=== PATIENT | female | born 1975 | race Caucasian/White ===

== ENCOUNTER 2018-04-16 09:57 | Emergency (ER) | payer MEDICARE ==
[~2018-04-16] VITALS: Ht 165.1 cm; Wt 72.6 kg
[2018-04-16] MEDS ORDERED: ONDANSETRON ODT 4 MG TAB.RAPDIS PO ONE (10:45)
[2018-04-16] MEDS ORDERED: IV NORMAL SALINE 1,000ML 1,000 ML IV ONE (10:45)
[2018-04-16 10:49] LABS: BASO # 0.1 x10^3/uL (0.0-0.2); BASO % 0 % (0-3); EOS % 0 % (0-3); HEMATOCRIT 47.3 % (36.0-47.0); HEMOGLOBIN 16.1 g/dL (12.0-15.5); LYMPH # 2.1 x10^3/uL (1.0-4.8); LYMPH % 12 % (24-48); MEAN CORPUSCULAR HEMOGLOBIN 31 pg (25-35); MEAN CORPUSCULAR HGB CONC 34 g/dL (31-37); MEAN CORPUSCULAR VOLUME 91 fL (79-100); MONO # 0.6 x10^3/uL (0.0-1.1); MONO % 3 % (0-9); NEUT % 85 % (31-73); PLATELET COUNT 487 x10^3/uL (140-400); RED BLOOD COUNT 5.22 x10^6/uL (3.50-5.40); RED CELL DISTRIBUTION WIDTH 14.7 % (11.5-14.5); WHITE BLOOD COUNT 17.8 x10^3/uL (4.0-11.0)
[2018-04-16 10:57] LABS: PREG TEST PT QUAL NEGATIVE (NEG)
[2018-04-16 11:01] LABS: CALCIUM 9.6 mg/dL (8.5-10.1); CREATININE 0.9 mg/dL (0.6-1.0); DIRECT BILIRUBIN 0.1 mg/dL (0.0-0.2); GFR 68.3; POTASSIUM 3.2 mmol/L (3.5-5.1); TOTAL BILIRUBIN 0.6 mg/dL (0.2-1.0); TOTAL PROTEIN 8.5 g/dL (6.4-8.2)
[2018-04-16 11:08] LABS: BILIRUBIN,URINE SMALL (NEG); CLARITY,URINE CLOUDY; COLOR,URINE YELLOW; GLUCOSE,URINE NEG (NEG); NITRITE,URINE NEG (NEG); UROBILINOGEN,URINE 0.2 mg/dL (0.2 mg/dL)
[2018-04-16 11:09] LABS: AMORPHOUS SEDIMENT,UR PRESENT /HPF; BACTERIA,URINE MANY /HPF (0-FEW); SQUAMOUS EPITHELIAL CELL,UR FEW /LPF
--- NOTE | 2018-04-16 11:19 | PHYS DOC ---
Past History Past Medical History: Bipolar, Schizophrenia Past Surgical History: Cholecystectomy, Tonsillectomy, Tubal ligation Alcohol Use: Rarely Drug Use: Heroin Adult General Chief Complaint Chief Complaint: NAUSEA/VOMITING HPI HPI This is a pleasant 42-year-old female presenting the emergency department today with nausea and vomiting for the past 2 days. Her vomitus is green in color. She denies fevers or chills. She has a history of a cholecystectomy in the past. Her pain is in the epigastrium which is mild to moderate. She describes it as a cramping that is nonradiating intermittent and associated with vomiting. She denies being . Review of systems is negative for chest pain shortness of breath fevers or chills. She denies polyuria dysuria or being . All other review of systems is negative unless otherwise noted in history of present illness. ED course: 42-year-old female presenting the emergency department today with epigastric abdominal pain along with nausea and vomiting. On arrival she is afebrile with a normal heart rate. On examination she is well-appearing, nontoxic and without any distress. Abdomen is soft and mildly tender in the epigastrium without tenderness in McBurney's point or Catherine sign. No rebound tenderness or guarding. Lungs are clear bilaterally. Cardiac auscultation reveals regular rate and rhythm. No murmur. The remainder the exam is unremarkable. IV established. IV nausea and pain medications of the posterior along with IV fluids. Blood work sent. CT abdomen pelvis ordered. Blood work shows mildly low potassium. Mild elevation in transaminase levels. Bilirubin within normal limits. Glucose mildly high. CBC shows leukocytosis which is nonspecific. Urinalysis shows mild ketones likely secondary to dehydration. Blood in the urine present. Likely secondary to currently being on her period. Many urine bacteria present could be contamination given negative leuk esterase and negative nitrites. We will cover for an urinary tract infection until urine culture returns. CT the abdomen pelvis shows a normal appendix without any obvious acute pathology. Recommendation made for outpatient vaginal ultrasound which was communicated to the patient. Oral Bactrim given for possible urinary tract infection pending culture. Otherwise ODT Zofran as needed for nausea.The patient has been examined and was not found to have an emergency medical condition. The patient was then discharged home in stable condition to follow up with their primary care physician over the next 2-3 days. They were to return if their symptoms worsened or if they were concerned for any reason. Face -to-face discharge instructions and return precautions were given. Patient's questions were answered to their satisfaction. Patient is comfortable with plan. Review of Systems Review of Systems SEE ABOVE. Current Medications Current Medications Current Medications Medications (Trade) Dose Ordered Sig/Cecilia Start Time Stop Time Status Last Admin Dose Admin Iohexol (Omnipaque 300 Mg/ml) 75 ml 1X ONCE 04/16/18 11:15 04/16/18 11:16 UNV Ondansetron HCl (Zofran Odt) 4 mg 1X ONCE 04/16/18 10:45 04/16/18 10:46 DC 04/16/18 10:35 4 MG Sodium Chloride 1,000 ml @ 1,000 mls/hr 1X ONCE 04/16/18 10:45 04/16/18 11:44 04/16/18 10:36 1,000 MLS/HR Allergies Allergies Allergies Coded Allergies Type Severity Reaction Last Updated Verified No Known Drug Allergies 04/16/18 No Physical Exam Physical Exam SEE ABOVE Constitutional: Well developed, well nourished, no acute distress, non-toxic appearance. HENT: Normocephalic, atraumatic, bilateral external ears normal, oropharynx moist, no oral exudates, nose normal. [] Eyes: PERRLA, EOMI, conjunctiva normal, no discharge. Neck: Normal range of motion, no tenderness, supple, no stridor. [] Cardiovascular:Heart rate regular rhythm, no murmur [] Lungs & Thorax: Bilateral breath sounds clear to auscultation [] Abdomen: Bowel sounds normal, soft, not distended, no masses, no pulsatile masses. Skin: Warm, dry, no erythema, no rash. [] Back: No tenderness, no CVA tenderness. [] Extremities: No tenderness, no cyanosis, no clubbing, ROM intact, no edema. Neurologic: Alert and oriented X 3, normal motor function, normal sensory function, no focal deficits noted. [] Psychologic: Affect normal, judgement normal, mood normal. [] Current Patient Data Vital Signs Vital Signs Date Time Temp Pulse Resp B/P (MAP) Pulse Ox O2 Delivery O2 Flow Rate FiO2 04/16/18 10:43 94 18 141/73 (95) 96 Room Air 04/16/18 10:05 97.5 Lab Results Laboratory Tests Test 04/16/18 10:24 04/16/18 10:27 Urine Collection Type Unknown Urine Color Yellow Urine Clarity Cloudy Urine pH 6.5 Urine Specific Carmi 1.025 Urine Protein 30 mg/dl (NEG-TRACE) Urine Glucose (UA) Neg mg/dL (NEG) Urine Ketones (Stick) 40 mg/dL (NEG) Urine Blood Large (NEG) Urine Nitrite Neg (NEG) Urine Bilirubin Small (NEG) Urine Urobilinogen Dipstick 0.2 mg/dL (0.2 mg/dL) Urine Leukocyte Esterase Neg (NEG) Urine RBC 3-5 /HPF (0-2) Urine WBC 1-4 /HPF (0-4) Urine Squamous Epithelial Cells Few /LPF Urine Amorphous Sediment Present /HPF Urine Bacteria Many /HPF (0-FEW) Urine Mucus Mod /LPF White Blood Count 17.8 x10^3/uL (4.0-11.0) H Red Blood Count 5.22 x10^6/uL (3.50-5.40) Hemoglobin 16.1 g/dL (12.0-15.5) H Hematocrit 47.3 % (36.0-47.0) H Mean Corpuscular Volume 91 fL (79-100) Mean Corpuscular Hemoglobin 31 pg (25-35) Mean Corpuscular Hemoglobin Concent 34 g/dL (31-37) Red Cell Distribution Width 14.7 % (11.5-14.5) H Platelet Count 487 x10^3/uL (140-400) H Neutrophils (%) (Auto) 85 % (31-73) H Lymphocytes (%) (Auto) 12 % (24-48) L Monocytes (%) (Auto) 3 % (0-9) Eosinophils (%) (Auto) 0 % (0-3) Basophils (%) (Auto) 0 % (0-3) Neutrophils # (Auto) 15.0 x10^3uL (1.8-7.7) H Lymphocytes # (Auto) 2.1 x10^3/uL (1.0-4.8) Monocytes # (Auto) 0.6 x10^3/uL (0.0-1.1) Eosinophils # (Auto) 0.0 x10^3/uL (0.0-0.7) Basophils # (Auto) 0.1 x10^3/uL (0.0-0.2) Platelet Estimate Pending Sodium Level 143 mmol/L (136-145) Potassium Level 3.2 mmol/L (3.5-5.1) L Chloride Level 106 mmol/L (98-107) Carbon Dioxide Level 25 mmol/L (21-32) Anion Gap 12 (6-14) Blood Urea Nitrogen 15 mg/dL (7-20) Creatinine 0.9 mg/dL (0.6-1.0) Estimated GFR (Cockcroft-Gault) 68.3 Glucose Level 130 mg/dL (70-99) H Calcium Level 9.6 mg/dL (8.5-10.1) Total Bilirubin 0.6 mg/dL (0.2-1.0) Direct Bilirubin 0.1 mg/dL (0.0-0.2) Aspartate Amino Transferase (AST) 49 U/L (15-37) H Alanine Aminotransferase (ALT) 141 U/L (14-59) H Alkaline Phosphatase 110 U/L (46-116) Total Protein 8.5 g/dL (6.4-8.2) H Albumin 4.0 g/dL (3.4-5.0) Lipase 173 U/L (73-393) Serum Test, Qualitative Negative (NEG) EKG EKG [] Radiology/Procedures Radiology/Procedures [] Course & Med Decision Making Course & Med Decision Making Pertinent Labs and Imaging studies reviewed. (See chart for details) [] Dragon Disclaimer Dragon Disclaimer This electronic medical record was generated, in whole or in part, using a voice recognition dictation system. Departure Departure: Impression: Primary Impression: Epigastric abdominal pain Additional Impressions: Nausea and vomiting Hypokalemia Leukocytosis Disposition: HOME, SELF-CARE Condition: STABLE Referrals: DAVID TANNER MD (PCP) Patient Instructions: Nausea and Vomiting, Potassium (K) Additional Instructions: Thank you for allowing us to participate in your care today. Followup with your primary care physician in 3 days if your symptoms do not improve. Call your Primary Doctor tomorrow and inform them of your visit today. If you do not have a primary care provider you can ask for a list of our primary care providers. Return to the emergency department you have any new or concerning findings. You will need an ultrasound in clinic for a: "Hyperenhancing mass in the uterine fundus, probable fibroid. Hypodense area in the mid uterus, incompletely characterized." that was seen on CT today. get this within 7-10 days and follow up with you primary doctor with the results. This should be evaluated by the primary care physician and any necessary consulting services for continued management within a few days after discharge. Return to emergency room if you have any new or concerning symptoms including but not limited to fever, chills, nausea, vomiting, intractable pain, any new rashes, chest pain, shortness of air, uncontrolled bleeding, difficulty breathing, and/or vision loss. If at any time, you are having difficulty getting into your primary care doctor or a specialist, return to the emergency department. Scripts Sulfamethoxazole/Trimethoprim (BACTRIM DS TABLET) 1 Each Tablet 1 TAB PO BID, #14 TAB Prov: ILEANA GILMORE MD 04/16/18 Ondansetron Hcl (ZOFRAN) 4 Mg Tablet 1 TAB PO PRN Q6HRS PRN for NAUSEA, #6 TAB Prov: ILEANA GILMORE MD 04/16/18 Problem Qualifiers ILEANA GILMORE MD April 16, 2018 11:19
[2018-04-16] MEDS ORDERED: IOHEXOL 300 MG/ML 75 ML VIAL. IV ONE (11:30)
[2018-04-16] MEDS ORDERED: CONTRAST GIVEN MC PRN (11:30)
[2018-04-16 11:40] LABS: % ATYL 3 % (0-0); % BANDS 1 % (0-9); % BASOS 0 % (0-3); % EOS 0 % (0-5); % LYMPHS 15 % (24-48); % MONOS 1 % (0-10); % SEGS 80 % (35-66); PLATELET CLUMP PRESENT; PLT ESTIMATE INCREASED (ADEQUATE); TOXIC VACUOLATION SLIGHT
--- NOTE | 2018-04-16 11:53 | RAD ---
PQRS Compliance Statement: One or more of the following individualized dose reduction techniques were utilized for this examination: 1. Automated exposure control 2. Adjustment of the mA and/or kV according to patient size 3. Use of iterative reconstruction technique CT ABD PELV W/ IV CONTRST ONLY Clinical Indication: RLQ PAIN, nausea and vomiting, cramping x2 days. Comparison: None. Technique: Helical CT imaging of the abdomen and pelvis is performed after 75 cc Omnipaque 300 IV contrast. Oral contrast not given. Findings: Calcified granuloma posterior left lower lobe. Cardiac size normal. Tiny hiatal hernia. Cholecystectomy. Mild focal fatty infiltration along the falciform ligament. Numerous calcified granulomas in the spleen. There is a 8mm hypodensity in the upper spleen, incompletely characterized. In a patient with no significant past medical history, the hypodensity is probably a cyst or hemangioma. Pancreas, adrenal glands, and abdominal aorta are normal. Kidneys enhance symmetrically, no hydronephrosis. No obvious abnormality of the stomach, stomach is not well distended, limiting evaluation. There is no dilated small bowel. Moderate colon stool volume. No evidence of colitis. The appendix is normal. Retroverted uterus. There is a 2.2 cm hyperenhancing mass in the uterus at the fundus. Mild mass effect on the endometrial stripe. There is an ill-defined hypodense area in the anterior myometrium that is near the endometrium but does not appear continuous. Uterus not well evaluated by CT. There is air in the vagina. Urinary bladder is normal. Negligible pelvic free fluid, probably physiologic. Bones unremarkable. IMPRESSION: 1. No acute abdominal or pelvic abnormality. The appendix is normal. 2. Hyperenhancing mass in the uterine fundus, probable fibroid. Hypodense area in the mid uterus, incompletely characterized. Consider outpatient pelvic ultrasound. Electronically signed by: Brady Granados MD (04/16/2018 11:50 AM) [id number]
[2018-04-16] MEDS ORDERED: SULF1TAB24 PO (12:15)
[2018-04-16] MEDS ORDERED: ONDA4TAB7 PO (12:15)
[2018-04-16] MEDS ORDERED: POTA10TA10 PO (12:21)
[2018-04-16] MEDS ORDERED: cefTRIAXone SODIUM 1 GM VIAL IV ONE (12:27)
[2018-04-16] MEDS ORDERED: IV NORMAL SALINE 50ML 50 ML ONE (12:27)
[2018-04-16 12:46] VITALS: BP 117/85
== END 2018-04-16 13:03 | disposition home or self-care (01) ==
LOC: ER 09:57
DX: E87.6 Hypokalemia (principal); R10.13 Epigastric pain; D72.829 Elevated white blood cell count, unspecified; Z90.49 Acquired absence of other specified parts of digestive tract; F20.9 Schizophrenia, unspecified; F31.9 Bipolar disorder, unspecified; F19.10 Other psychoactive substance abuse, uncomplicated
CPT/HCPCS: 36415; 74177; 80048; 80076; 81001; 83690; 84703; 85007; 85025; 87086; 87186; 96361; 96365; 99285; J0696; Q0162; Q9967; J7030

== ENCOUNTER 2018-05-02 21:08 | Inpatient (IN) | payer MEDICARE ==
[~2018-05-02] VITALS: Ht 165.1 cm; Wt 63.4 kg
[~2018-05-02 21:08] MED LIST: ONDA4TAB7 PO; POTA10TA10 PO; SULF1TAB24 PO
--- NOTE | 2018-05-02 21:16 | ED.ADGEN ---
Past History Past Medical History: Bipolar, Schizophrenia Past Surgical History: Cholecystectomy, Tonsillectomy, Tubal ligation Alcohol Use: Rarely Drug Use: Heroin Adult General Chief Complaint Chief Complaint "... I just wanted ......to sleep..... for a couple days.." and maybe never wake up...." HPI HPI Patient is a 42 year old female who presents with OD of Quetiapine. Pt reportedly took 20 Quetiapine 300 and 4 - 50 mg Quetiapine at 2030 hrs. Pt. has injected approximately a quarter gram of methamphetamine the last couple days. Pt. denies other drug usage. Denies immunosuppressing. No history of travel or specific ill contacts. No history of trauma. Husban states she has become psychotic from her drug use. Pt. Has hx. Anxiety, Bipolar, Depression and Polysubstance abuse. Pt. Rx bottles for Quetiapine ordered by Aliza Ledesma. Pt. also follows with Dr. Andrews. Review of Systems Review of Systems Pt. somewhat poor historian. Constitutional: Denies fever or chills [] Eyes: Denies change in visual acuity, redness, or eye pain [] HENT: Denies nasal congestion or sore throat [] Respiratory: Denies cough or shortness of breath [] Cardiovascular: No additional information not addressed in HPI [] GI: Denies abdominal pain, nausea, vomiting, bloody stools or diarrhea [] : Denies dysuria or hematuria [] Musculoskeletal: Denies back pain or joint pain [] Integument: Denies rash or skin lesions [] Neurologic: Denies headache, focal weakness or sensory changes [] Endocrine: Denies polyuria or polydipsia [] All other systems were reviewed and found to be within normal limits, except as documented in this note. Family History Family History Not currently available Current Medications Current Medications See nursing for home medications Allergies Allergies Allergies Coded Allergies Type Severity Reaction Last Updated Verified No Known Drug Allergies 04/16/18 No Physical Exam Physical Exam Constitutional: , no acute distress, very sedated in appearance. [] HENT: Normocephalic, atraumatic, bilateral external ears normal, oropharynx moist, no oral exudates, nose normal. []Good gag. Eyes: PERRLA, EOMI, conjunctiva normal, no discharge. [] Neck: Normal range of motion, no tenderness, supple, no stridor. [] Cardiovascular:Heart rate regular rhythm, no murmur [] Lungs & Thorax: Bilateral breath sounds equal at apex with scattered wheezes on auscultation [] Abdomen: Bowel sounds normal, soft, no tenderness, no masses, no pulsatile masses. [] Old surgery scars Skin: Warm, dry, no erythema, no rash. [] Back: No tenderness, no CVA tenderness. [] Extremities: No tenderness, no cyanosis, no clubbing, ROM intact, no edema. [] Neurologic: Alert and oriented X 3, no gross motor function or sensory function deficits, no focal deficits noted. Moves all extremities on command. GSC= 13 Psychologic: Affect depressed , mood depressed. [] Current Patient Data Lab Results Laboratory Tests Test 05/02/18 21:20 White Blood Count 9.1 x10^3/uL (4.0-11.0) Red Blood Count 5.09 x10^6/uL (3.50-5.40) Hemoglobin 15.7 g/dL (12.0-15.5) H Hematocrit 46.3 % (36.0-47.0) Mean Corpuscular Volume 91 fL (79-100) Mean Corpuscular Hemoglobin 31 pg (25-35) Mean Corpuscular Hemoglobin Concent 34 g/dL (31-37) Red Cell Distribution Width 14.6 % (11.5-14.5) H Platelet Count 383 x10^3/uL (140-400) Neutrophils (%) (Auto) 61 % (31-73) Lymphocytes (%) (Auto) 27 % (24-48) Monocytes (%) (Auto) 8 % (0-9) Eosinophils (%) (Auto) 3 % (0-3) Basophils (%) (Auto) 1 % (0-3) Neutrophils # (Auto) 5.5 x10^3uL (1.8-7.7) Lymphocytes # (Auto) 2.5 x10^3/uL (1.0-4.8) Monocytes # (Auto) 0.7 x10^3/uL (0.0-1.1) Eosinophils # (Auto) 0.2 x10^3/uL (0.0-0.7) Basophils # (Auto) 0.1 x10^3/uL (0.0-0.2) Prothrombin Time 10.5 SEC (9.4-11.4) Prothrombin Time INR 1.0 (0.9-1.1) PTT 28 SEC (23-33) Maternal Serum HCG Beta Subunit 1 mIU/mL (0-6) Sodium Level 143 mmol/L (136-145) Potassium Level 3.3 mmol/L (3.5-5.1) L Chloride Level 108 mmol/L (98-107) H Carbon Dioxide Level 20 mmol/L (21-32) L Anion Gap 15 (6-14) H Blood Urea Nitrogen 10 mg/dL (7-20) Creatinine 1.0 mg/dL (0.6-1.0) Estimated GFR (Cockcroft-Gault) 60.5 Glucose Level 113 mg/dL (70-99) H Calcium Level 9.1 mg/dL (8.5-10.1) Magnesium Level 2.2 mg/dL (1.8-2.4) Total Bilirubin 0.7 mg/dL (0.2-1.0) Direct Bilirubin 0.2 mg/dL (0.0-0.2) Aspartate Amino Transferase (AST) 54 U/L (15-37) H Alanine Aminotransferase (ALT) 109 U/L (14-59) H Alkaline Phosphatase 100 U/L (46-116) Total Protein 7.2 g/dL (6.4-8.2) Albumin 3.5 g/dL (3.4-5.0) Salicylates Level 2.7 mg/dL (2.8-20.0) L Salicylate Last Dose Date Unk Salicylate Last Dose Time Unk Acetaminophen Level < 2.0 mcg/mL (10-30) L Acetaminophen Last Dose Date Unk Acetaminophen Last Dose Time Unk Ethyl Alcohol Level < 10 mg/dL (0-10) EKG EKG My interpretation of EKG shows a sinus tachycardia 127 bpm. Left axis and nonspecific anterior septal changes. No findings acute STEMI of contralateral changes. QTC is at 491 ms. My interpretation of repeat EKG shows a sinus tachycardia 109 bpm. There is still an anterior lateral strain pattern. But now the QTc interval was 505 ms- magnesium was ordered for patient[] Radiology/Procedures Radiology/Procedures My interpretation of chest x-ray shows no acute cardiopulmonary findings.[] Course & Med Decision Making Course & Med Decision Making Pertinent Labs and Imaging studies reviewed. (See chart for details) Discussed presentation, testing and tx plan with Dr. Andrews at 2300 hrs. Will admit for further evaluation and treatment. We'll need a psychiatric valuation once mentation improved. Critical care time 90 minutes [] Final Impression Final Impression 1. Over Dosage of Quetiapine 2. Polysubstance Abuse 3. Hx. Bipolar 4. Suicidal ideation 5. Hypokalemia 6. Elevated AST/ ALT 7. Dehydration Dragon Disclaimer Dragon Disclaimer This electronic medical record was generated, in whole or in part, using a voice recognition dictation system. PRISCILLA NAZARIO MD May 02, 2018 21:16
[2018-05-02] MEDS ORDERED: THIAMINE 200 MG/2 ML VIAL. IV ONE (21:27)
[2018-05-02] MEDS ORDERED: FOLIC ACID 5 MG/ML SYRINGE for ER IV ONE ×2 (21:28)
[2018-05-02] MEDS ORDERED: MVI, ADULT NO.4 WITH VIT K 10 ML, FOLIC ACID 1 MG, THIAMINE 100 MG in IV DEXTROSE 5%-LA... IV ONE ×4 (21:30)
[2018-05-02 21:35] LABS: BASO # 0.1 x10^3/uL (0.0-0.2); BASO % 1 % (0-3); EOS # 0.2 x10^3/uL (0.0-0.7); EOS % 3 % (0-3); HEMATOCRIT 46.3 % (36.0-47.0); HEMOGLOBIN 15.7 g/dL (12.0-15.5); LYMPH # 2.5 x10^3/uL (1.0-4.8); LYMPH % 27 % (24-48); MEAN CORPUSCULAR HEMOGLOBIN 31 pg (25-35); MEAN CORPUSCULAR HGB CONC 34 g/dL (31-37); MEAN CORPUSCULAR VOLUME 91 fL (79-100); MONO # 0.7 x10^3/uL (0.0-1.1); MONO % 8 % (0-9); NEUT # 5.5 x10^3uL (1.8-7.7); NEUT % 61 % (31-73); PLATELET COUNT 383 x10^3/uL (140-400); RED BLOOD COUNT 5.09 x10^6/uL (3.50-5.40); RED CELL DISTRIBUTION WIDTH 14.6 % (11.5-14.5); WHITE BLOOD COUNT 9.1 x10^3/uL (4.0-11.0)
[2018-05-02 21:48] LABS: ETHANOL < 10 mg/dL (0-10); SALIC 2.7 mg/dL (2.8-20.0)
[2018-05-02 21:49] LABS: ACETAMIN < 2.0 mcg/mL (10-30)
[2018-05-02 21:50] LABS: ALBUMIN 3.5 g/dL (3.4-5.0); CALCIUM 9.1 mg/dL (8.5-10.1); DIRECT BILIRUBIN 0.2 mg/dL (0.0-0.2); GFR 60.5; MAGNESIUM 2.2 mg/dL (1.8-2.4); POTASSIUM 3.3 mmol/L (3.5-5.1); TOTAL BILIRUBIN 0.7 mg/dL (0.2-1.0); TOTAL PROTEIN 7.2 g/dL (6.4-8.2)
[2018-05-02 21:59] LABS: AMPHETAMINE/METHAMPHETAMINE POS (NEG); BARBITURATES NEG (NEG); BENZODIAZEPINES NEG (NEG); CANNABINOIDS NEG (NEG); COCAINE NEG (NEG); METHADONE NEG (NEG); OPIATES POS (NEG); PHENCYCLIDINE NEG (NEG)
[2018-05-02 22:01] LABS: BACTERIA,URINE 0 /HPF (0-FEW); BILIRUBIN,URINE NEG (NEG); CLARITY,URINE CLEAR; COLOR,URINE YELLOW; GLUCOSE,URINE NEG (NEG); NITRITE,URINE NEG (NEG); RBC,URINE RARE /HPF (0-2); SQUAMOUS EPITHELIAL CELL,UR FEW /LPF; UROBILINOGEN,URINE 1 mg/dL (0.2 mg/dL); WBC,URINE 0 /HPF (0-4)
[2018-05-02 22:24] LABS: BGAS PH 7.45 (7.35-7.45)
--- NOTE | 2018-05-02 22:38 | RAD ---
EXAM: CHEST 1 VIEW. HISTORY: Overdose. COMPARISON: None. FINDINGS: A frontal view of the chest is obtained. There are no confluent infiltrates. There is no pneumothorax or pleural effusion. The heart is not enlarged. Cholecystectomy clips are noted. IMPRESSION: 1. No confluent infiltrates. Electronically signed by: Lincoln Brown MD (05/02/2018 10:34 PM) [facility]
[2018-05-02] MEDS: IV RINGERS SOLUTION,LACTATED 1,000 ML IV SCH (23:30)
[2018-05-02] MEDS ORDERED: IV RINGERS SOLUTION,LACTATED 1,000 ML IV STA (23:39)
[2018-05-02 23:45] LABS: LI 0.6 mmol/L (0.6-1.2)
[2018-05-03] VITALS (19 sets, daily range): BP systolic 81–159; BP diastolic 56–99
--- NOTE | 2018-05-03 01:08 | EKG ---
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
--- NOTE | 2018-05-03 01:11 | EKG ---
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
[2018-05-03] MEDS ORDERED: MAGNESIUM SULFATE 2GM 50 ML IV ONE (01:15)
[2018-05-03] MEDS: IV RINGERS SOLUTION,LACTATED 1,000 ML IV SCH ×4 (03:17→19:30)
--- NOTE | 2018-05-03 05:52 | EKG ---
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
[2018-05-03 06:19] LABS: CALCIUM 9.2 mg/dL (8.5-10.1); CREATININE 0.9 mg/dL (0.6-1.0); GFR 68.3; POTASSIUM 3.8 mmol/L (3.5-5.1)
[2018-05-03 06:20] LABS: BASO % 0 % (0-3); EOS # 0.3 x10^3/uL (0.0-0.7); EOS % 5 % (0-3); HEMATOCRIT 40.8 % (36.0-47.0); HEMOGLOBIN 13.6 g/dL (12.0-15.5); LYMPH # 2.4 x10^3/uL (1.0-4.8); LYMPH % 33 % (24-48); MEAN CORPUSCULAR HEMOGLOBIN 31 pg (25-35); MEAN CORPUSCULAR HGB CONC 33 g/dL (31-37); MEAN CORPUSCULAR VOLUME 91 fL (79-100); MONO % 15 % (0-9); NEUT # 3.3 x10^3uL (1.8-7.7); NEUT % 47 % (31-73); PLATELET COUNT 351 x10^3/uL (140-400); RED BLOOD COUNT 4.47 x10^6/uL (3.50-5.40); RED CELL DISTRIBUTION WIDTH 14.6 % (11.5-14.5); WHITE BLOOD COUNT 7.1 x10^3/uL (4.0-11.0)
[2018-05-03] MEDS ORDERED: MVI, ADULT NO.4 WITH VIT K 10 ML, FOLIC ACID SYRINGE for ER 1 MG, THIAMINE 100 MG in IV... IV SCH ×4 (09:00)
[2018-05-03] MEDS: MVI, ADULT NO.4 WITH VIT K 10 ML, FOLIC ACID 1 MG, THIAMINE 100 MG in IV DEXTROSE 5%-LA... IV SCH ×4 (09:00)
[2018-05-03] MEDS ORDERED: HALOPERIDOL LACT 5 MG/ML VIAL. IVP PRN (15:15)
[2018-05-03] MEDS ORDERED: HALOPERIDOL LACT 5 MG/ML VIAL. IM PRN (15:17)
[2018-05-03] MEDS: LORazepam 2 MG/ML VIAL IV PRN ×4 (16:15→20:25)
--- NOTE | 2018-05-03 19:15 | HP ---
ADMIT DATE: 05/02/2018 HISTORY OF PRESENT ILLNESS: A 42-year-old female came in through the Emergency Room with an overdose of approximately 15,000 mg of Seroquel. The patient was quite tired and fatigued, has apparently also injected approximately a 1/4 gram of methamphetamine. Last couple of days, denies other drug usage ____. The patient otherwise is markedly lethargic. Her states the patient has become psychotic from drug use. PAST MEDICAL HISTORY: Bipolar and schizophrenia, polysubstance abuse. The patient was admitted for further observation and further evaluation. REVIEW OF SYSTEMS: Unable to really give much of a history. FAMILY HISTORY: Unremarkable. MEDICATIONS: Her normal home medications include Bactrim DS, potassium chloride, and Zofran p.r.n. ALLERGIES: She has no known drug allergies. SOCIAL HISTORY: The patient smokes. Does drink alcohol. Denies tobacco use. REVIEW OF SYSTEMS: As described above. PHYSICAL EXAMINATION: GENERAL: This is very lethargic, sedate white female. VITAL SIGNS: Blood pressure initially 81/57, respiratory rate 17, pulse 80, afebrile. HEENT: The patient's head was atraumatic, normocephalic. Eyes: PERRL. The patient's pupils are somewhat dilated, but reactive to light. LUNGS: The patient otherwise, lungs are diminished, but clear. CARDIOVASCULAR: Regular sinus rhythm. ABDOMEN: Soft, nontender, no rebound or guarding. Positive bowel sounds. EXTREMITIES: No clubbing, cyanosis or edema. NEUROLOGIC: The patient is very lethargic. Reflex is diminished throughout. LABORATORY DATA: Hemoglobin of 13 and 40, otherwise differential not significant. Chemistries: Sodium 147, BUN and creatinine of 10 and 1. Blood sugar 113, elevation of liver enzymes. Drug screen is positive for methamphetamines, opiates, and perhaps some lithium. PLAN: In any case, the patient will be admitted for polysubstance abuse, drug overdose with Seroquel. The patient placed in the ICU 1:1 and make further evaluation on her as indicated also consult with Dr. Luis M cooper psychiatrist for his input in the situation. DAVID TANNER MD DR: HAROON/agatha JOB#: [id number] / [id number]
--- NOTE | 2018-05-03 21:05 | PDOC ---
Exam Note: Hernán Note: Please also refer to the separate dictated note~for this date of service dictated separately.~Patient seen individually. Discussed the patient with Nursing staff reviewed the chart.~Reviewed interim history and current functioning. Reviewed vital signs,~Labs/ Radiology~and current medications noted below. Continue current treatment with the changes noted in the dictated addendum note Assessment: Vital Signs: Vital Signs Date Time Temp Pulse Resp B/P (MAP) Pulse Ox O2 Delivery O2 Flow Rate FiO2 05/03/18 20:03 92 24 114/91 (99) Room Air 05/03/18 15:00 96.9 05/03/18 04:58 97 05/03/18 02:54 2.0 I&O Intake and Output 05/03/18 07:00 Intake Total 1176 ml Output Total 0 ml Balance 1176 ml Intake Oral 0 ml IV Total 1176 ml Output Urine Total 0 ml Labs: Laboratory Tests Test 05/02/18 21:20 05/02/18 21:26 05/02/18 21:31 05/02/18 22:10 White Blood Count 9.1 x10^3/uL (4.0-11.0) Red Blood Count 5.09 x10^6/uL (3.50-5.40) Hemoglobin 15.7 g/dL (12.0-15.5) H Hematocrit 46.3 % (36.0-47.0) Mean Corpuscular Volume 91 fL (79-100) Mean Corpuscular Hemoglobin 31 pg (25-35) Mean Corpuscular Hemoglobin Concent 34 g/dL (31-37) Red Cell Distribution Width 14.6 % (11.5-14.5) H Platelet Count 383 x10^3/uL (140-400) Neutrophils (%) (Auto) 61 % (31-73) Lymphocytes (%) (Auto) 27 % (24-48) Monocytes (%) (Auto) 8 % (0-9) Eosinophils (%) (Auto) 3 % (0-3) Basophils (%) (Auto) 1 % (0-3) Neutrophils # (Auto) 5.5 x10^3uL (1.8-7.7) Lymphocytes # (Auto) 2.5 x10^3/uL (1.0-4.8) Monocytes # (Auto) 0.7 x10^3/uL (0.0-1.1) Eosinophils # (Auto) 0.2 x10^3/uL (0.0-0.7) Basophils # (Auto) 0.1 x10^3/uL (0.0-0.2) Prothrombin Time 10.5 SEC (9.4-11.4) Prothrombin Time INR 1.0 (0.9-1.1) PTT 28 SEC (23-33) Maternal Serum HCG Beta Subunit 1 mIU/mL (0-6) Sodium Level 143 mmol/L (136-145) Potassium Level 3.3 mmol/L (3.5-5.1) L Chloride Level 108 mmol/L (98-107) H Carbon Dioxide Level 20 mmol/L (21-32) L Anion Gap 15 (6-14) H Blood Urea Nitrogen 10 mg/dL (7-20) Creatinine 1.0 mg/dL (0.6-1.0) Estimated GFR (Cockcroft-Gault) 60.5 Glucose Level 113 mg/dL (70-99) H Calcium Level 9.1 mg/dL (8.5-10.1) Magnesium Level 2.2 mg/dL (1.8-2.4) Total Bilirubin 0.7 mg/dL (0.2-1.0) Direct Bilirubin 0.2 mg/dL (0.0-0.2) Aspartate Amino Transferase (AST) 54 U/L (15-37) H Alanine Aminotransferase (ALT) 109 U/L (14-59) H Alkaline Phosphatase 100 U/L (46-116) Total Protein 7.2 g/dL (6.4-8.2) Albumin 3.5 g/dL (3.4-5.0) Salicylates Level 2.7 mg/dL (2.8-20.0) L Salicylate Last Dose Date Unk Salicylate Last Dose Time Unk Acetaminophen Level < 2.0 mcg/mL (10-30) L Acetaminophen Last Dose Date Unk Acetaminophen Last Dose Time Unk Ethyl Alcohol Level < 10 mg/dL (0-10) [place] Level 0.6 mmol/L (0.6-1.2) [place] Last Dose Date [place] Last Dose Time Urine Collection Type U cath Urine Color Yellow Urine Clarity Clear Urine pH 7.5 Urine Specific [place] 1.010 Urine Protein Neg (NEG-TRACE) Urine Glucose (UA) Neg mg/dL (NEG) Urine Ketones (Stick) Neg mg/dL (NEG) Urine Blood Trace (NEG) Urine Nitrite Neg (NEG) Urine Bilirubin Neg (NEG) Urine Urobilinogen Dipstick 1 mg/dL (0.2 mg/dL) Urine Leukocyte Esterase Neg (NEG) Urine RBC Rare /HPF (0-2) Urine WBC 0 /HPF (0-4) Urine Squamous Epithelial Cells Few /LPF Urine Bacteria 0 /HPF (0-FEW) Urine Opiates Screen Pos (NEG) Urine Methadone Screen Neg (NEG) Urine Barbiturates Neg (NEG) Urine Phencyclidine Screen Neg (NEG) Urine Amphetamine/Methamphetamine Pos (NEG) Urine Benzodiazepines Screen Neg (NEG) Urine Cocaine Screen Neg (NEG) Urine Cannabinoids Screen Neg (NEG) Urine Ethyl Alcohol Neg (NEG) Blood pH 7.45 (7.35-7.45) Blood Gas PCO2 34 mmHg (35-45) L Blood Gas PO2 84 mmHg (80-100) Blood Gas HCO3 24 mmol/L (22-26) Arterial Bld O2 Saturation (Calc) 97 % (92-99) FiO2 21 % Test 05/03/18 01:38 05/03/18 05:45 Nasal Screen MRSA (PCR) Negative (Negative) White Blood Count 7.1 x10^3/uL (4.0-11.0) Red Blood Count 4.47 x10^6/uL (3.50-5.40) Hemoglobin 13.6 g/dL (12.0-15.5) Hematocrit 40.8 % (36.0-47.0) Mean Corpuscular Volume 91 fL (79-100) Mean Corpuscular Hemoglobin 31 pg (25-35) Mean Corpuscular Hemoglobin Concent 33 g/dL (31-37) Red Cell Distribution Width 14.6 % (11.5-14.5) H Platelet Count 351 x10^3/uL (140-400) Neutrophils (%) (Auto) 47 % (31-73) Lymphocytes (%) (Auto) 33 % (24-48) Monocytes (%) (Auto) 15 % (0-9) H Eosinophils (%) (Auto) 5 % (0-3) H Basophils (%) (Auto) 0 % (0-3) Neutrophils # (Auto) 3.3 x10^3uL (1.8-7.7) Lymphocytes # (Auto) 2.4 x10^3/uL (1.0-4.8) Monocytes # (Auto) 1.0 x10^3/uL (0.0-1.1) Eosinophils # (Auto) 0.3 x10^3/uL (0.0-0.7) Basophils # (Auto) 0.0 x10^3/uL (0.0-0.2) Sodium Level 147 mmol/L (136-145) H Potassium Level 3.8 mmol/L (3.5-5.1) Chloride Level 110 mmol/L (98-107) H Carbon Dioxide Level 28 mmol/L (21-32) Anion Gap 9 (6-14) Blood Urea Nitrogen 11 mg/dL (7-20) Creatinine 0.9 mg/dL (0.6-1.0) Estimated GFR (Cockcroft-Gault) 68.3 Glucose Level 89 mg/dL (70-99) Calcium Level 9.2 mg/dL (8.5-10.1) Current Medications: Meds: Current Medications Multivitamins/ Minerals 10 ml/ Folic Acid 1 mg/ Thiamine HCl 100 mg/Dextrose/ Lactated Ringer's 1,011.2 ml @ 0 mls/hr 1X ONCE IV Last administered on at 21:30; Start 05/02/18 at 21:30; Stop 05/02/18 at 21:35; Status DC Thiamine HCl 200 mg STK-MED ONCE IV ; Start 05/02/18 at 21:27; Stop 05/02/18 at 21 :28; Status DC Folic Acid (FOLIC ACID SYRINGE for ER) 5 mg STK-MED ONCE IV ; Start 05/02/18 at 21:28; Stop 05/02/18 at 21:29; Status DC Folic Acid (FOLIC ACID SYRINGE for ER) 5 mg STK-MED ONCE IV ; Start 05/02/18 at 21:28; Stop 05/02/18 at 21:29; Status DC Multivitamins/ Minerals 10 ml/ Folic Acid 1 mg/ Thiamine HCl 100 mg/Lactated Ringer's 1,011.1 ml @ 1,000 mls/ hr DAILY IV ; Start 05/03/18 at 09:00; Status UNV Lactated Ringer's 1,000 ml @ 200 mls/hr Q5H IV Last administered on 05/03/18at 03:17; Start 05/02/18 at 23:30 Lactated Ringer's 1,000 ml @ 1,000 mls/hr 1X STAT IV Last administered on 05/02at 00:15; Start 05/02/18 at 23:39; Stop 05/03/18 at 00:38; Status DC Multivitamins/ Minerals 10 ml/ Folic Acid 1 mg/ Thiamine HCl 100 mg/Dextrose/ Lactated Ringer's 1,011.2 ml @ 1,000 mls/ hr DAILY IV Last administered on 05/03at 09:00; Start 05/03/18 at 09:00 Magnesium Sulfate 50 ml @ 25 mls/hr 1X ONCE IV Last administered on 05/03/18at 02:08; Start 05/03/18 at 01:15; Stop 05/03/18 at 03:14; Status DC Haloperidol Lactate (Haldol) 2 mg PRN Q6HRS PRN IVP AGITATION; Start 05/03/18 at 15:15; Stop 05/03/18 at 15:17; Status DC Haloperidol Lactate (Haldol) 2 mg PRN Q6HRS PRN IM AGITATION; Start 05/03/18 at 15:17; Stop 05/03/18 at 15:40; Status DC Lorazepam (Ativan) 0.5 mg PRN Q1HR PRN IV ANXIETY / AGITATION Last administered on 05/03/18at 20:25; Start 05/03/18 at 15:45 Active Scripts Active Potassium Chloride 10 Meq Tablet.er 10 Meq PO DAILY 5 Days Bactrim Ds Tablet (Sulfamethoxazole/Trimethoprim) 1 Each Tablet 1 Tab PO BID Zofran (Ondansetron Hcl) 4 Mg Tablet 1 Tab PO PRN Q6HRS PRN I have reviewed the current psychotropics carefully including drug interactions. Risk benefit ratio favors no change other than as noted in my dictated progress note. Diagnosis: Problems: (1) Anxiety disorder (2) Bipolar affective, mixed, sev w/ psych (3) Impulse control disorder (4) Psychosis, atypical (5) Methamphetamine abuse (6) Mental confusion (7) Overdose HAIDER RODRIGUEZ MD May 03, 2018 21:05
[2018-05-04] VITALS (11 sets, daily range): BP systolic 113–175; BP diastolic 66–100
[2018-05-04] MEDS: IV RINGERS SOLUTION,LACTATED 1,000 ML IV SCH ×5 (00:30→20:30)
[2018-05-04] MEDS: LORazepam 2 MG/ML VIAL IV PRN ×3 (02:53→19:40)
[2018-05-04] MEDS: MVI, ADULT NO.4 WITH VIT K 10 ML, FOLIC ACID 1 MG, THIAMINE 100 MG in IV DEXTROSE 5%-LA... IV SCH ×4 (08:33)
--- NOTE | 2018-05-04 10:56 | RAD ---
CT of the head without contrast, 05/04/2018: HISTORY: Fall, vomiting, abdominal pain, headache and dizziness The ventricles are within normal limits in size. There is no shift of the midline structures. There is no evidence of acute intracranial hemorrhage or mass effect. A tiny nonspecific cortical calcification is present in the right frontal region. IMPRESSION: No acute intracranial abnormality is detected. CT of the abdomen and pelvis without contrast, 05/04/2018: Noncontrast scans were obtained as requested. The images are partially compromised by artifacts arising from the patient's arms. There is mild dependent atelectasis in the lung bases. A calcified granuloma is present in the left base. The gallbladder is surgically absent. The unopacified liver shows no abnormality. No pancreatic abnormality is seen. The spleen is of normal size. It contains multiple calcified granulomata. The unopacified kidneys are unremarkable. The abdominal aorta is unremarkable. No abdominal or pelvic adenopathy is seen. The uterus is unremarkable. There is moderate distention of the urinary bladder. There is a moderate fecal impaction the rectum. The bowel loops are not dilated. No free fluid or free air is evident in the abdomen or pelvis. IMPRESSION: 1. Moderate fecal impaction the rectum. 2. Distended urinary bladder. 3. The abdomen and pelvis are otherwise unremarkable. Electronically signed by: Nahid Jacob MD (05/04/2018 10:52 AM) [facility]
--- NOTE | 2018-05-04 10:57 | RAD ---
This exam was dictated in conjunction with the CT head report. Electronically signed by: Nahid Jacob MD (05/04/2018 10:53 AM) [facility]
[2018-05-04 11:25] LABS: BASO % 0 % (0-3); EOS # 0.1 x10^3/uL (0.0-0.7); EOS % 1 % (0-3); HEMATOCRIT 42.5 % (36.0-47.0); HEMOGLOBIN 14.2 g/dL (12.0-15.5); LYMPH # 0.8 x10^3/uL (1.0-4.8); LYMPH % 9 % (24-48); MEAN CORPUSCULAR HEMOGLOBIN 31 pg (25-35); MEAN CORPUSCULAR HGB CONC 34 g/dL (31-37); MEAN CORPUSCULAR VOLUME 91 fL (79-100); MONO # 0.3 x10^3/uL (0.0-1.1); MONO % 4 % (0-9); NEUT # 7.9 x10^3uL (1.8-7.7); NEUT % 87 % (31-73); PLATELET COUNT 340 x10^3/uL (140-400); RED BLOOD COUNT 4.65 x10^6/uL (3.50-5.40); RED CELL DISTRIBUTION WIDTH 14.6 % (11.5-14.5); WHITE BLOOD COUNT 9.1 x10^3/uL (4.0-11.0)
[2018-05-04] MEDS ORDERED: MAGNESIUM SULFATE 2GM 50 ML IV ONE (11:30)
[2018-05-04 11:33] LABS: CREATININE 0.8 mg/dL (0.6-1.0); GFR 78.3; POTASSIUM 3.3 mmol/L (3.5-5.1)
[2018-05-04] MEDS: AA 3%/ELECTROLYTE-TPN SOLN/GLY 1,000 ML IV SCH (11:43)
[2018-05-04 12:06] LABS: % LYMPHS 7 % (24-48); % MONOS 8 % (0-10); % SEGS 85 % (35-66); PLT ESTIMATE ADEQUATE (ADEQUATE)
[2018-05-04] MEDS: hydrALAZINE 20 MG/ML VIAL. IV PRN (12:43)
[2018-05-04] MEDS: METOCLOPRAMIDE HCL 10 MG/2 ML VIAL. IV SCH ×2 (16:30→19:40)
--- NOTE | 2018-05-04 16:53 | EKG ---
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
--- NOTE | 2018-05-04 16:55 | EKG ---
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
--- NOTE | 2018-05-04 19:15 | PDOC ---
Exam Note: Hernán Note: Please also refer to the separate dictated note~for this date of service dictated separately.~Patient seen individually. Discussed the patient with Nursing staff reviewed the chart.~Reviewed interim history and current functioning. Reviewed vital signs,~Labs/ Radiology~and current medications noted below. Continue current treatment with the changes noted in the dictated addendum note Assessment: Vital Signs: Vital Signs Date Time Temp Pulse Resp B/P (MAP) Pulse Ox O2 Delivery O2 Flow Rate FiO2 05/04/18 18:04 88 05/04/18 13:04 175/94 (121) 05/04/18 08:22 96.9 97 05/04/18 06:40 21 Room Air 05/03/18 02:54 2.0 I&O Intake and Output 05/04/18 07:00 Intake Total 0 ml Output Total 1 ml Balance -1 ml Intake Oral 0 ml Output Urine Total 1 ml # Voids 2 Labs: Laboratory Tests Test 05/04/18 11:05 White Blood Count 9.1 x10^3/uL (4.0-11.0) Red Blood Count 4.65 x10^6/uL (3.50-5.40) Hemoglobin 14.2 g/dL (12.0-15.5) Hematocrit 42.5 % (36.0-47.0) Mean Corpuscular Volume 91 fL (79-100) Mean Corpuscular Hemoglobin 31 pg (25-35) Mean Corpuscular Hemoglobin Concent 34 g/dL (31-37) Red Cell Distribution Width 14.6 % (11.5-14.5) H Platelet Count 340 x10^3/uL (140-400) Neutrophils (%) (Auto) 87 % (31-73) H Lymphocytes (%) (Auto) 9 % (24-48) L Monocytes (%) (Auto) 4 % (0-9) Eosinophils (%) (Auto) 1 % (0-3) Basophils (%) (Auto) 0 % (0-3) Neutrophils # (Auto) 7.9 x10^3uL (1.8-7.7) H Lymphocytes # (Auto) 0.8 x10^3/uL (1.0-4.8) L Monocytes # (Auto) 0.3 x10^3/uL (0.0-1.1) Eosinophils # (Auto) 0.1 x10^3/uL (0.0-0.7) Basophils # (Auto) 0.0 x10^3/uL (0.0-0.2) Segmented Neutrophils % 85 % (35-66) H Lymphocytes % 7 % (24-48) L Monocytes % 8 % (0-10) Platelet Estimate Adequate (ADEQUATE) Sodium Level 144 mmol/L (136-145) Potassium Level 3.3 mmol/L (3.5-5.1) L Chloride Level 108 mmol/L (98-107) H Carbon Dioxide Level 28 mmol/L (21-32) Anion Gap 8 (6-14) Blood Urea Nitrogen 8 mg/dL (7-20) Creatinine 0.8 mg/dL (0.6-1.0) Estimated GFR (Cockcroft-Gault) 78.3 Glucose Level 252 mg/dL (70-99) H Lactic Acid Level 1.6 mmol/L (0.4-2.0) Calcium Level 9.0 mg/dL (8.5-10.1) Ammonia < 10 mcmol/L (11-34) L Current Medications: Meds: Current Medications Multivitamins/ Minerals 10 ml/ Folic Acid 1 mg/ Thiamine HCl 100 mg/Dextrose/ Lactated Ringer's 1,011.2 ml @ 0 mls/hr 1X ONCE IV Last administered on at 21:30; Start 05/02/18 at 21:30; Stop 05/02/18 at 21:35; Status DC Thiamine HCl 200 mg STK-MED ONCE IV ; Start 05/02/18 at 21:27; Stop 05/02/18 at 21 :28; Status DC Folic Acid (FOLIC ACID SYRINGE for ER) 5 mg STK-MED ONCE IV ; Start 05/02/18 at 21:28; Stop 05/02/18 at 21:29; Status DC Folic Acid (FOLIC ACID SYRINGE for ER) 5 mg STK-MED ONCE IV ; Start 05/02/18 at 21:28; Stop 05/02/18 at 21:29; Status DC Multivitamins/ Minerals 10 ml/ Folic Acid 1 mg/ Thiamine HCl 100 mg/Lactated Ringer's 1,011.1 ml @ 1,000 mls/ hr DAILY IV ; Start 05/03/18 at 09:00; Status UNV Lactated Ringer's 1,000 ml @ 200 mls/hr Q5H IV Last administered on 05/04/18at 05:30; Start 05/02/18 at 23:30 Lactated Ringer's 1,000 ml @ 1,000 mls/hr 1X STAT IV Last administered on 05/02at 00:15; Start 05/02/18 at 23:39; Stop 05/03/18 at 00:38; Status DC Multivitamins/ Minerals 10 ml/ Folic Acid 1 mg/ Thiamine HCl 100 mg/Dextrose/ Lactated Ringer's 1,011.2 ml @ 1,000 mls/ hr DAILY IV Last administered on 09/11at 08:33; Start 05/03/18 at 09:00 Magnesium Sulfate 50 ml @ 25 mls/hr 1X ONCE IV Last administered on 05/03/18at 02:08; Start 05/03/18 at 01:15; Stop 05/03/18 at 03:14; Status DC Haloperidol Lactate (Haldol) 2 mg PRN Q6HRS PRN IVP AGITATION; Start 05/03/18 at 15:15; Stop 05/03/18 at 15:17; Status DC Haloperidol Lactate (Haldol) 2 mg PRN Q6HRS PRN IM AGITATION; Start 05/03/18 at 15:17; Stop 05/03/18 at 15:40; Status DC Lorazepam (Ativan) 0.5 mg PRN Q1HR PRN IV ANXIETY / AGITATION Last administered on 05/04/18at 08:45; Start 05/03/18 at 15:45 Amino Acids/ Glycerin/ Electrolytes 1,000 ml @ 80 mls/hr [id number] IV Last administered on 05/04/18at 11:43; Start 05/04/18 at 10:15 Magnesium Sulfate 50 ml @ 25 mls/hr 1X ONCE IV Last administered on 05/04/18at 11:41; Start 05/04/18 at 11:30; Stop 05/04/18 at 13:29; Status DC Metoclopramide HCl (Reglan Vial) 10 mg QIDACHS IV ; Start 05/04/18 at 16:30 Hydralazine HCl (Apresoline) 20 mg PRN Q8HRS PRN IV ELEVATED BP, SEE COMMENTS Last administered on 05/04/18at 12:43; Start 05/04/18 at 12:45 Active Scripts Active Potassium Chloride 10 Meq Tablet.er 10 Meq PO DAILY 5 Days Bactrim Ds Tablet (Sulfamethoxazole/Trimethoprim) 1 Each Tablet 1 Tab PO BID Zofran (Ondansetron Hcl) 4 Mg Tablet 1 Tab PO PRN Q6HRS PRN I have reviewed the current psychotropics carefully including drug interactions. Risk benefit ratio favors no change other than as noted in my dictated progress note. Diagnosis: Problems: (1) Bipolar affective, mixed, sev w/ psych (2) Psychosis, atypical (3) Impulse control disorder (4) Anxiety disorder (5) Mental confusion (6) Overdose (7) Methamphetamine abuse HAIDER RODRIGUEZ MD May 04, 2018 19:15
[2018-05-05] VITALS (16 sets, daily range): BP systolic 96–173; BP diastolic 49–104
[2018-05-05] MEDS: IV RINGERS SOLUTION,LACTATED 1,000 ML IV SCH ×3 (01:30→11:30)
--- NOTE | 2018-05-05 04:24 | CONS ---
DATE OF CONSULTATION: 05/03/2018 This late entry, date of service 05/03/2018, covers elements not covered in my initial note 05/03/2018. IDENTIFYING DATA: The patient is a 42-year-old female seen in the ICU at [facility] for a psychiatric consult requested by Dr. Andrews after the patient was hospitalized following an overdose of quetiapine. The patient reportedly took 20 of the 300 mg quetiapine and 4 of the 50 mg at 2030 hours on 05/02/2018. She had injected 0.25 gram of methamphetamine the last couple of days. She denied any other drug usage. The patient has a history of bipolar disorder, past overdoses, methamphetamine abuse, polysubstance abuse and has been treated at the [facility]. I have been asked to follow her from a psychiatric consult/standpoint. Prior to my visit with the patient earlier in the day, I had been contacted by the ICU nurses on account of the patient's marked psychotic symptoms, agitation, delirium. Poison control had been contacted and recommended using IV Ativan "liberally." We did initiate this, I also met with the patient's sister who was by her bedside and her as part of this evaluation. She has been followed at the [facility] in [place] for her primary psychiatric disorder of bipolar versus schizoaffective disorder and polysubstance abuse. CHIEF COMPLAINT: Unintelligible since the patient is lying in bed, constantly moving, totally delirious, unable to recognize respond to anything around her, constantly in rhythmic motion. Her walked back and forth walking outside the room back again as she gave me some historical information on the patient supplementing what was provided by the patient's sister. HISTORY OF PRESENT ILLNESS: The patient reportedly took the above overdose and has done so in the past as well. She also has a history of heroin, methamphetamine abuse and has in the past been treated on lithium, Latuda, Loxitane, Xanax, Seroquel, and several other psychotropics in the past. She was hospitalized under similar circumstances 6 months ago and 1-1/2 years ago. Her drug screen is positive for methamphetamines and opiates. The patient's EKG was reflective of her QTC greater than 500 milliseconds, and I did request a Cardiology consult when nursing staff called me earlier before my visit with the patient. Since then, I have also requested a CT head to be completed whenever possible and is not possible at the time I evaluated the patient as she is just not able to be still enough for this. PAST PSYCHIATRIC HISTORY: As above. PAST MEDICAL/SURGICAL HISTORY: Cholecystectomy, tonsillectomy, tubal ligation. FAMILY HISTORY: Unavailable. DRUG ALLERGIES: Negative. CURRENT PSYCHOTROPICS: Ativan IV 0.5 mg q. 1 hour p.r.n. anxiety, agitation, symptoms of delirium, max 6 mg in 24 hours, previously initiated this at max 3 mg in 24 hours. CODE STATUS: Full code. MENTAL STATUS EXAMINATION: The patient was seen individually evening of 05/03/2018. She is constantly moving in bed as described above. Delirious, unaware of her surroundings. Insight, judgment, recent and remote memory, attention, concentration, fund of knowledge poor, consistent with her diagnosis. She does not seem to be able to recognize her or her sister. Eyes are closed. LABORATORY DATA: Reviewed. IMPRESSION: Delirium due to general medical condition, bipolar 1 disorder, mixed with psychotic features. Overdose in a suicide attempt, as noted. Rest as above including polysubstance abuse, prolonged QTC interval on EKG. PLAN: As recommended by Poison Control. Continue the Ativan IV p.r.n. for her current condition. Since she took an overdose of Seroquel, we will avoid Haldol at least for now, especially given her prolonged QTC. Complete a CT head whenever possible. Dr. Andrews, thank you for the opportunity to participate in your patient's care. We will follow with you. HAIDER RODRIGUEZ MD DR: KRISTIAN/agatha JOB#: [id number] / [id number]
[2018-05-05] MEDS: AA 3%/ELECTROLYTE-TPN SOLN/GLY 1,000 ML IV SCH (04:32)
--- NOTE | 2018-05-05 05:07 | PN ---
DATE: SUBJECTIVE: A 42-year-old female still in the ICU, still very lethargic, not very responsive at all to stimuli. The patient recently had a CT scan of abdomen and pelvis as well, results are pending. The patient does seem to respond a little bit to pain. Blood pressure 160/86, respiratory rate 20, pulse 80, afebrile. The patient is very limp throughout. Consult with Dr. Asencio because of agitation. They recommended lorazepam when she got agitated. Still in contact with poison control. We will wait for other testing to come back. PHYSICAL EXAMINATION: VITAL SIGNS: The patient's blood pressure 160/86, respiratory rate 20, pulse 80, afebrile, 96.9, may be slightly hypothermic, but that looks like what she runs. LUNGS: Diminished, but clear. CARDIOVASCULAR: Regular sinus rhythm. ABDOMEN: Soft, diffuse tenderness. It is hard to make known what this patient is feeling as she is not very of communicative about her symptoms. So we will go ahead and continue with present drug regimen until these other results have been returned. We will consult Neurology to see if they have any other suggestions. IMPRESSION: Metabolic encephalopathy, drug addiction, suicide attempt, polysubstance abuse, drug overdose, nausea, vomiting. PLAN: As above. We will also start her on some procalamine and make further evaluation. DAVID TANNER MD DR: HAROON/agatha JOB#: [id number] / [id number]
[2018-05-05 06:33] LABS: BASO # 0.1 x10^3/uL (0.0-0.2); BASO % 1 % (0-3); EOS # 0.3 x10^3/uL (0.0-0.7); EOS % 2 % (0-3); HEMATOCRIT 40.5 % (36.0-47.0); HEMOGLOBIN 13.7 g/dL (12.0-15.5); LYMPH # 1.3 x10^3/uL (1.0-4.8); LYMPH % 10 % (24-48); MEAN CORPUSCULAR HEMOGLOBIN 31 pg (25-35); MEAN CORPUSCULAR HGB CONC 34 g/dL (31-37); MEAN CORPUSCULAR VOLUME 91 fL (79-100); MONO # 0.6 x10^3/uL (0.0-1.1); MONO % 5 % (0-9); NEUT % 83 % (31-73); PLATELET COUNT 304 x10^3/uL (140-400); RED BLOOD COUNT 4.46 x10^6/uL (3.50-5.40); RED CELL DISTRIBUTION WIDTH 14.6 % (11.5-14.5); WHITE BLOOD COUNT 13.3 x10^3/uL (4.0-11.0)
[2018-05-05 06:51] LABS: CALCIUM 8.6 mg/dL (8.5-10.1); CREATININE 0.7 mg/dL (0.6-1.0); GFR 91.3; POTASSIUM 3.5 mmol/L (3.5-5.1)
[2018-05-05] MEDS: METOCLOPRAMIDE HCL 10 MG/2 ML VIAL. IV SCH ×4 (07:37→21:02)
[2018-05-05] MEDS: MVI, ADULT NO.4 WITH VIT K 10 ML, FOLIC ACID 1 MG, THIAMINE 100 MG in IV DEXTROSE 5%-LA... IV SCH ×8 (09:00→11:06)
--- NOTE | 2018-05-05 09:04 | PDOC2 ---
YOLANDA OSULLIVAN APRN 05/05/18 0904: CONSULT Date of Admission DATE: 05/05/18 TIME: 08:56 Reason for Consult: prolonged QTC - progress note only Problem List Problems Medical Problems: (1) Mental confusion Status: Acute (2) Overdose Status: Acute History of Present Illness denies complaints, very sleepy, no chest pain or lightheadedness. Past Medical History Bipolar, Schizophrenia Past Surgical History Cholecystectomy, Tonsillectomy, Tubal ligation Family History unremarkable Social History + smoker, no significant ETOH, +methamphetamine and heroin use, +prior SI/SA Current Medications Current Medications Multivitamins/ Minerals 10 ml/ Folic Acid 1 mg/ Thiamine HCl 100 mg/Dextrose/ Lactated Ringer's 1,011.2 ml @ 0 mls/hr 1X ONCE IV Last administered on at 21:30; Start 05/02/18 at 21:30; Stop 05/02/18 at 21:35; Status DC Thiamine HCl 200 mg STK-MED ONCE IV ; Start 05/02/18 at 21:27; Stop 05/02/18 at 21 :28; Status DC Folic Acid (FOLIC ACID SYRINGE for ER) 5 mg STK-MED ONCE IV ; Start 05/02/18 at 21:28; Stop 05/02/18 at 21:29; Status DC Folic Acid (FOLIC ACID SYRINGE for ER) 5 mg STK-MED ONCE IV ; Start 05/02/18 at 21:28; Stop 05/02/18 at 21:29; Status DC Multivitamins/ Minerals 10 ml/ Folic Acid 1 mg/ Thiamine HCl 100 mg/Lactated Ringer's 1,011.1 ml @ 1,000 mls/ hr DAILY IV ; Start 05/03/18 at 09:00; Status UNV Lactated Ringer's 1,000 ml @ 200 mls/hr Q5H IV Last administered on 05/04/18at 05:30; Start 05/02/18 at 23:30 Lactated Ringer's 1,000 ml @ 1,000 mls/hr 1X STAT IV Last administered on 05/02at 00:15; Start 05/02/18 at 23:39; Stop 05/03/18 at 00:38; Status DC Multivitamins/ Minerals 10 ml/ Folic Acid 1 mg/ Thiamine HCl 100 mg/Dextrose/ Lactated Ringer's 1,011.2 ml @ 1,000 mls/ hr DAILY IV Last administered on 09/11at 08:33; Start 05/03/18 at 09:00 Magnesium Sulfate 50 ml @ 25 mls/hr 1X ONCE IV Last administered on 05/03/18at 02:08; Start 05/03/18 at 01:15; Stop 05/03/18 at 03:14; Status DC Haloperidol Lactate (Haldol) 2 mg PRN Q6HRS PRN IVP AGITATION; Start 05/03/18 at 15:15; Stop 05/03/18 at 15:17; Status DC Haloperidol Lactate (Haldol) 2 mg PRN Q6HRS PRN IM AGITATION; Start 05/03/18 at 15:17; Stop 05/03/18 at 15:40; Status DC Lorazepam (Ativan) 0.5 mg PRN Q1HR PRN IV ANXIETY / AGITATION Last administered on 05/04/18at 19:40; Start 05/03/18 at 15:45 Amino Acids/ Glycerin/ Electrolytes 1,000 ml @ 80 mls/hr [id number] IV Last administered on 05/05/18at 04:32; Start 05/04/18 at 10:15 Magnesium Sulfate 50 ml @ 25 mls/hr 1X ONCE IV Last administered on 05/04/18at 11:41; Start 05/04/18 at 11:30; Stop 05/04/18 at 13:29; Status DC Metoclopramide HCl (Reglan Vial) 10 mg QIDACHS IV Last administered on at 07:37; Start 05/04/18 at 16:30 Hydralazine HCl (Apresoline) 20 mg PRN Q8HRS PRN IV ELEVATED BP, SEE COMMENTS Last administered on 05/04/18at 12:43; Start 05/04/18 at 12:45 Active Scripts Active Potassium Chloride 10 Meq Tablet.er 10 Meq PO DAILY 5 Days Bactrim Ds Tablet (Sulfamethoxazole/Trimethoprim) 1 Each Tablet 1 Tab PO BID Zofran (Ondansetron Hcl) 4 Mg Tablet 1 Tab PO PRN Q6HRS PRN Allergies: Coded Allergies: No Known Drug Allergies (Unverified , 04/16/18) Review of System as per HPI General: Oriented X3, Cooperative Lungs: Clear to auscultation Heart: Regular rate, Normal S1, Normal S2 Abdomen: Normal bowel sounds, Soft Extremities: No cyanosis, No edema Neuro: Normal speech Psych/Mental Status: Mental status NL, Other (flat affect) VITALS Vital Signs Date Time Temp Pulse Resp B/P (MAP) Pulse Ox O2 Delivery O2 Flow Rate FiO2 05/05/18 08:05 72 20 160/93 (115) 99 Room Air 05/05/18 07:00 98.4 05/03/18 02:54 2.0 Labs Laboratory Tests Test 05/04/18 11:05 05/05/18 06:10 White Blood Count 9.1 x10^3/uL (4.0-11.0) 13.3 x10^3/uL (4.0-11.0) Red Blood Count 4.65 x10^6/uL (3.50-5.40) 4.46 x10^6/uL (3.50-5.40) Hemoglobin 14.2 g/dL (12.0-15.5) 13.7 g/dL (12.0-15.5) Hematocrit 42.5 % (36.0-47.0) 40.5 % (36.0-47.0) Mean Corpuscular Volume 91 fL (79-100) 91 fL (79-100) Mean Corpuscular Hemoglobin 31 pg (25-35) 31 pg (25-35) Mean Corpuscular Hemoglobin Concent 34 g/dL (31-37) 34 g/dL (31-37) Red Cell Distribution Width 14.6 % (11.5-14.5) 14.6 % (11.5-14.5) Platelet Count 340 x10^3/uL (140-400) 304 x10^3/uL (140-400) Neutrophils (%) (Auto) 87 % (31-73) 83 % (31-73) Lymphocytes (%) (Auto) 9 % (24-48) 10 % (24-48) Monocytes (%) (Auto) 4 % (0-9) 5 % (0-9) Eosinophils (%) (Auto) 1 % (0-3) 2 % (0-3) Basophils (%) (Auto) 0 % (0-3) 1 % (0-3) Neutrophils # (Auto) 7.9 x10^3uL (1.8-7.7) 11.0 x10^3uL (1.8-7.7) Lymphocytes # (Auto) 0.8 x10^3/uL (1.0-4.8) 1.3 x10^3/uL (1.0-4.8) Monocytes # (Auto) 0.3 x10^3/uL (0.0-1.1) 0.6 x10^3/uL (0.0-1.1) Eosinophils # (Auto) 0.1 x10^3/uL (0.0-0.7) 0.3 x10^3/uL (0.0-0.7) Basophils # (Auto) 0.0 x10^3/uL (0.0-0.2) 0.1 x10^3/uL (0.0-0.2) Segmented Neutrophils % 85 % (35-66) Lymphocytes % 7 % (24-48) Monocytes % 8 % (0-10) Platelet Estimate Adequate (ADEQUATE) Sodium Level 144 mmol/L (136-145) 141 mmol/L (136-145) Potassium Level 3.3 mmol/L (3.5-5.1) 3.5 mmol/L (3.5-5.1) Chloride Level 108 mmol/L (98-107) 107 mmol/L (98-107) Carbon Dioxide Level 28 mmol/L (21-32) 26 mmol/L (21-32) Anion Gap 8 (6-14) 8 (6-14) Blood Urea Nitrogen 8 mg/dL (7-20) 13 mg/dL (7-20) Creatinine 0.8 mg/dL (0.6-1.0) 0.7 mg/dL (0.6-1.0) Estimated GFR (Cockcroft-Gault) 78.3 91.3 Glucose Level 252 mg/dL (70-99) 109 mg/dL (70-99) Lactic Acid Level 1.6 mmol/L (0.4-2.0) Calcium Level 9.0 mg/dL (8.5-10.1) 8.6 mg/dL (8.5-10.1) Ammonia < 10 mcmol/L (11-34) Images EKG sinus rhythm, prolonged QT, no acute ischemic changes Assessment/Plan 1. prolonged QT - likely secondary to Seroquel overdose. Received IV Magnesium yesterday. Continue to monitor. Repeat EKG. 2. leukocytosis - mgmt per PCP. Echo to rule out endocarditis as she has history of IV drug use. 3. SA with Seroquel overdose - per psych 4. bipolar disorder with psychotic features, delirium - per Psych 5. tobaccoism and polysubstance abuse - cessation recommended, per Psych TAB GONZALES MD 05/05/18 1815: CONSULT Assessment/Plan Patient seen and examined The patient is more alert today. QTC interval has improved to 477 from a previous 524. Agree with present treatment plan and close monitoring as above. Thank you for allowing us to participate in the care of your patient. YOLANDA OSULLIVAN APRN May 05, 2018 09:04 TAB GONZALES MD May 05, 2018 18:15
[2018-05-05] MEDS ORDERED: PANTOPRAZOLE IV 80 MG in IV NORMAL SALINE 100ML 100 ML IV SCH (10:00)
[2018-05-05] MEDS ORDERED: NICOTINE POLACRILEX GUM 2 MG GUM. BC PRN (12:45)
[2018-05-05] MEDS: CALCIUM CARBONATE 500 MG TAB.CHEW PO PRN ×2 (12:54→21:56)
[2018-05-05] MEDS: NICOTINE 21MG PATCH. TD SCH (12:54)
[2018-05-05] MEDS ORDERED: BISACODYL TAB 5 MG TABLET.DR. PO PRN (13:15)
[2018-05-05] MEDS ORDERED: chlordiazePOXIDE HCL 25 MG CAPSULE PO PRN ×2 (13:15)
[2018-05-05] MEDS ORDERED: cloNIDine HCL 0.1 MG TABLET PO PRN (13:15)
[2018-05-05] MEDS ORDERED: MAGNESIUM HYDROXIDE 2,400 MG/30 ML ORAL.SUSP. PO PRN (13:15)
[2018-05-05] MEDS: POLYETHYLENE GLYCOL 3350 17 GM PACKET. PO SCH (13:28)
[2018-05-05] MEDS: LORazepam 2 MG/ML VIAL IV PRN ×3 (13:33→21:02)
--- NOTE | 2018-05-05 13:59 | CARD ---
MR#: [id number] Date of Study: 05/05/2018 Ordering Physician: YOLANDA OSULLIVAN, Referring Physician: DAVID TANNER, Tech: HI Bunn APPROVED REPORT EXAM: Two-dimensional and M-mode echocardiogram with Doppler and color Doppler. Other Information Quality : GoodHR: 70bpm INDICATION IV drug use, Fever 2D DIMENSIONS Left Atrium(2D)3.2 (1.6-4.0cm)IVSd1.2 (0.7-1.1cm) Aortic Root(2D)2.8 (2.0-3.7cm)LVDd4.5 (3.9-5.9cm) LVOT Diameter2.1 (1.8-2.4cm)PWd1.0 (0.7-1.1cm) LVDs2.6 (2.5-4.0cm)FS (%) 41.7 % SV67.3 mlLVEF(%)72.8 (>50%) Aortic Valve AoV Peak Parminder.136.3cm/sAoV VTI27.2cm AO Peak GR.7.4mmHgLVOT Peak Parminder.106.1cm/s LVOT VTI 22.20cmAO Mean GR.4mmHg TRES (VMAX)2.01mt2OVG (VTI)2.89cm2 AI P 1/2 Wnxb770wb Mitral Valve MV E Kqwhdqjk07.1cm/sMV DECEL PITW647gs MV A Gfyxqfsa15.7cm/sE/A Ratio1.1 Pulmonary Valve PV Peak Voydvfhn509.8cm/sPV Peak Grad.4mmHg Tricuspid Valve TR P. Mpdmqdmw075yw/sTR Peak Gr.15mmHg Pulmonary Vein S1 Chnjuqjj48.5cm/sD2 Ehghdaar69.5cm/s LEFT VENTRICLE The left ventricle is normal size. There is mild septal hypertrophy. The left ventricular systolic fu nction is normal and the ejection fraction is within normal range. EF 65% There is normal LV segmenta l wall motion. The left ventricular diastolic function and filling is normal for age. RIGHT VENTRICLE The right ventricle is normal size. The right ventricular systolic function is normal. ATRIA The left atrium size is normal. The right atrium size is normal. The interatrial septum is intact wit h no evidence for an atrial septal defect or patent foramen ovale as noted on 2-D or Doppler imaging. AORTIC VALVE The aortic valve is thickened but opens well. Doppler and Color Flow revealed no significant aortic r egurgitation. There is no significant aortic valvular stenosis. There is no aortic valvular vegetatio n. MITRAL VALVE The mitral valve is mildly thickened. There is no evidence of mitral valve prolapse. There is no mitr al valve stenosis. Doppler and Color Flow revealed no mitral valve regurgitation noted. TRICUSPID VALVE The tricuspid valve is normal in structure. Doppler and Color Flow revealed trace tricuspid regurgita tion. There is no tricuspid valve prolapse or vegetation. There is no tricuspid valve stenosis. PULMONIC VALVE The pulmonary valve is not well visualized. Doppler and Color Flow revealed trace pulmonic valvular r egurgitation. There is no pulmonic valvular stenosis. GREAT VESSELS The aortic root is normal in size. The IVC is normal in size and collapses >50% with inspiration. PERICARDIAL EFFUSION There is no pleural effusion. There is no evidence of significant pericardial effusion. Critical Notification Critical Value: No <Conclusion> The left ventricular systolic function is normal and the ejection fraction is within normal range. EF 65% There is normal LV segmental wall motion. No evidence of vegetation on the aortic, mitral and tricupid valves. If there is high clinical suspic ion, consider GERALD. Signed by : Nam Hicks, Electronically Approved : 05/05/2018 13:58:46
--- NOTE | 2018-05-05 15:44 | EKG ---
[address] [address] Test Date: 2018-05-05 Test Time: 10:16:44 Pat Name: SHIMON VERA Department: Room: [facility] 1 Gender: F [employer] Operator: TOM : 1975 Requested By: YOLANDA OSULLIVAN Order Number: [id number] Reading MD: Measurements Intervals [place] Rate: 76 P: 56 OR: 122 QRS: 43 QRSD: 92 T: 55 QT: 420 QTc: 477 Interpretive Statements SINUS RHYTHM QRS(T) CONTOUR ABNORMALITY CONSIDER ANTEROLATERAL MYOCARDIAL DAMAGE PROLONGED QT POSSIBLY ABNORMAL ECG RI6.01 No previous ECG available for comparison
--- NOTE | 2018-05-05 18:26 | PDOC ---
Exam Note: Hernán Note: Please also refer to the separate dictated note~for this date of service dictated separately.~Patient seen individually. Discussed the patient with Nursing staff reviewed the chart.~Reviewed interim history and current functioning. Reviewed vital signs,~Labs/ Radiology~and current medications noted below. Continue current treatment with the changes noted in the dictated addendum note Assessment: Vital Signs: Vital Signs Date Time Temp Pulse Resp B/P (MAP) Pulse Ox O2 Delivery O2 Flow Rate FiO2 05/05/18 17:13 93 18 119/85 (96) 96 Room Air 05/05/18 13:31 97.8 05/03/18 02:54 2.0 I&O Intake and Output 05/05/18 07:00 Intake Total 120 ml Output Total 6 ml Balance 114 ml Intake Oral 120 ml Emesis 6 ml # Voids 5 Labs: Laboratory Tests Test 05/05/18 06:10 White Blood Count 13.3 x10^3/uL (4.0-11.0) H Red Blood Count 4.46 x10^6/uL (3.50-5.40) Hemoglobin 13.7 g/dL (12.0-15.5) Hematocrit 40.5 % (36.0-47.0) Mean Corpuscular Volume 91 fL (79-100) Mean Corpuscular Hemoglobin 31 pg (25-35) Mean Corpuscular Hemoglobin Concent 34 g/dL (31-37) Red Cell Distribution Width 14.6 % (11.5-14.5) H Platelet Count 304 x10^3/uL (140-400) Neutrophils (%) (Auto) 83 % (31-73) H Lymphocytes (%) (Auto) 10 % (24-48) L Monocytes (%) (Auto) 5 % (0-9) Eosinophils (%) (Auto) 2 % (0-3) Basophils (%) (Auto) 1 % (0-3) Neutrophils # (Auto) 11.0 x10^3uL (1.8-7.7) H Lymphocytes # (Auto) 1.3 x10^3/uL (1.0-4.8) Monocytes # (Auto) 0.6 x10^3/uL (0.0-1.1) Eosinophils # (Auto) 0.3 x10^3/uL (0.0-0.7) Basophils # (Auto) 0.1 x10^3/uL (0.0-0.2) Sodium Level 141 mmol/L (136-145) Potassium Level 3.5 mmol/L (3.5-5.1) Chloride Level 107 mmol/L (98-107) Carbon Dioxide Level 26 mmol/L (21-32) Anion Gap 8 (6-14) Blood Urea Nitrogen 13 mg/dL (7-20) # Creatinine 0.7 mg/dL (0.6-1.0) Estimated GFR (Cockcroft-Gault) 91.3 Glucose Level 109 mg/dL (70-99) H Calcium Level 8.6 mg/dL (8.5-10.1) Current Medications: Meds: Current Medications Multivitamins/ Minerals 10 ml/ Folic Acid 1 mg/ Thiamine HCl 100 mg/Dextrose/ Lactated Ringer's 1,011.2 ml @ 0 mls/hr 1X ONCE IV Last administered on at 21:30; Start 05/02/18 at 21:30; Stop 05/02/18 at 21:35; Status DC Thiamine HCl 200 mg STK-MED ONCE IV ; Start 05/02/18 at 21:27; Stop 05/02/18 at 21 :28; Status DC Folic Acid (FOLIC ACID SYRINGE for ER) 5 mg STK-MED ONCE IV ; Start 05/02/18 at 21:28; Stop 05/02/18 at 21:29; Status DC Folic Acid (FOLIC ACID SYRINGE for ER) 5 mg STK-MED ONCE IV ; Start 05/02/18 at 21:28; Stop 05/02/18 at 21:29; Status DC Multivitamins/ Minerals 10 ml/ Folic Acid 1 mg/ Thiamine HCl 100 mg/Lactated Ringer's 1,011.1 ml @ 1,000 mls/ hr DAILY IV ; Start 05/03/18 at 09:00; Status UNV Lactated Ringer's 1,000 ml @ 200 mls/hr Q5H IV Last administered on 05/04/18at 05:30; Start 05/02/18 at 23:30; Stop 05/05/18 at 14:26; Status DC Lactated Ringer's 1,000 ml @ 1,000 mls/hr 1X STAT IV Last administered on 05/02at 00:15; Start 05/02/18 at 23:39; Stop 05/03/18 at 00:38; Status DC Multivitamins/ Minerals 10 ml/ Folic Acid 1 mg/ Thiamine HCl 100 mg/Dextrose/ Lactated Ringer's 1,011.2 ml @ 1,000 mls/ hr DAILY IV Last administered on 10/12at 11:06; Start 05/03/18 at 09:00 Magnesium Sulfate 50 ml @ 25 mls/hr 1X ONCE IV Last administered on 05/03/18at 02:08; Start 05/03/18 at 01:15; Stop 05/03/18 at 03:14; Status DC Haloperidol Lactate (Haldol) 2 mg PRN Q6HRS PRN IVP AGITATION; Start 05/03/18 at 15:15; Stop 05/03/18 at 15:17; Status DC Haloperidol Lactate (Haldol) 2 mg PRN Q6HRS PRN IM AGITATION; Start 05/03/18 at 15:17; Stop 05/03/18 at 15:40; Status DC Lorazepam (Ativan) 0.5 mg PRN Q1HR PRN IV ANXIETY / AGITATION Last administered on 05/05/18at 17:24; Start 05/03/18 at 15:45 Amino Acids/ Glycerin/ Electrolytes 1,000 ml @ 80 mls/hr [id number] IV Last administered on 05/05/18at 04:32; Start 05/04/18 at 10:15 Magnesium Sulfate 50 ml @ 25 mls/hr 1X ONCE IV Last administered on 05/04/18at 11:41; Start 05/04/18 at 11:30; Stop 05/04/18 at 13:29; Status DC Metoclopramide HCl (Reglan Vial) 10 mg QIDACHS IV Last administered on at 17:06; Start 05/04/18 at 16:30 Hydralazine HCl (Apresoline) 20 mg PRN Q8HRS PRN IV ELEVATED BP, SEE COMMENTS Last administered on 05/04/18at 12:43; Start 05/04/18 at 12:45 Nicotine (Nicoderm Cq 21mg) 1 patch DAILY TD Last administered on 05/05/18at 12: 54; Start 05/05/18 at 12:45 Nicotine Polacrilex (Nicorette Gum) 2 mg PRN Q1HR PRN BC SMOKING CESSATION; Start 05/05/18 at 12:45 Calcium Carbonate/ Glycine (Tums) 500 mg PRN AFTMEALHC PRN PO INDIGESTION Last administered on 05/05/18at 12:54; Start 05/05/18 at 13:00 Clonidine HCl (Catapres) 0.1 mg Q6HRS PRN PO ELEVATED BP, SEE COMMENTS; Start 05/05/18 at 13:15 Chlordiazepoxide (Librium) 50 mg PRN Q4HRS PRN PO WITHDRAWAL; Start 05/05/18 at 13:15 Chlordiazepoxide (Librium) 100 mg PRN Q4HRS PRN PO WITHDRAWAL Last administered on 05/05/18at 13:28; Start 05/05/18 at 13:15 Bisacodyl (Dulcolax Tab) 10 mg PRN DAILY PRN PO CONSTIPATION; Start 05/05/18 at 13:15 Magnesium Hydroxide (Milk Of Magnesia) 2,400 mg PRN DAILY PRN PO CONSTIPATION Last administered on 05/05/18at 13:28; Start 05/05/18 at 13:15 Polyethylene Glycol (miraLAX) 17 gm DAILY PO Last administered on 05/05/18at 13: 28; Start 05/05/18 at 13:15 Active Scripts Active Potassium Chloride 10 Meq Tablet.er 10 Meq PO DAILY 5 Days Bactrim Ds Tablet (Sulfamethoxazole/Trimethoprim) 1 Each Tablet 1 Tab PO BID Zofran (Ondansetron Hcl) 4 Mg Tablet 1 Tab PO PRN Q6HRS PRN I have reviewed the current psychotropics carefully including drug interactions. Risk benefit ratio favors no change other than as noted in my dictated progress note. Diagnosis: Problems: (1) Methamphetamine abuse (2) Bipolar affective, mixed, sev w/ psych (3) Psychosis, atypical (4) Impulse control disorder (5) Anxiety disorder (6) Mental confusion HAIDER RODRIGUEZ MD May 05, 2018 18:26
[2018-05-06] VITALS (13 sets, daily range): BP systolic 110–180; BP diastolic 61–97
--- NOTE | 2018-05-06 00:13 | PN ---
DATE: SUBJECTIVE: The patient, a 42-year-old female attempted suicide and drug abuse. The patient is still in the ICU, very lethargic, but a little bit more awake today than she has been. The patient seems to be answering a few questions little bit, but not very much. She has not talked or communicative in a spontaneous fashion. The patient otherwise remains basically a little bit more stable. OBJECTIVE: VITAL SIGNS: Blood pressure 160/93, respiratory rate 20, pulse 72, afebrile. LUNGS: Diminished, but clear. CARDIOVASCULAR: Stable. NEUROLOGIC: The patient is little bit more alert and nurses are working with her to maintain some type of communication with this. The patient needs to be seen by Psychiatry and to be placed on a Psych Unit for her depression and suicide attempt. Otherwise, the patient is resting comfortably. LABORATORY DATA: Her labs look basically stable. Blood sugar down to 109. She is on Procalamine as she is not eating and the patient's white count is up a little bit and we will continue to monitor that accordingly. IMPRESSION: Otherwise, impression therefore is toxic encephalopathy secondary to a drug overdose suicide attempt, polysubstance abuse, [id number] protein malnutrition, secondary to drugs, severe depression, lethargy. DAVID TANNER MD DR: HAROON/agatha JOB#: [id number] / [id number]
--- NOTE | 2018-05-06 02:50 | PN ---
DATE: 05/04/2018 PSYCHIATRIC PROGRESS NOTE This late entry date of service 05/04/2018 covers elements not covered in my initial note of 05/04/2018. SUBJECTIVE: I met with the patient in the evening. Discussed with nursing staff. She remains extremely restless, constantly moving, a little more awake, difficult to understand verbally with rambling speech. She has, however, not been aggressive. REVIEW OF SYSTEMS: Remains moving in her bed in the ICU as I met with her. MENTAL STATUS EXAM: Oriented to herself. Insight, judgment, recent and remote memory, attention, concentration, fund of knowledge poor, consistent with her diagnosis unchanged from initial note. PLAN: We will add Zyprexa p.r.n. if needed, but like to minimize using any atypical antipsychotics and she overdosed on large dosage of Seroquel at admission. The nursing staff will try and avoid it. Continue Ativan IV p.r.n. and give it time to let the methamphetamine run out of her system along with everything else she had taken. HAIDER RODRIGUEZ MD DR: KRISTIAN/agatha JOB#: [id number] / [id number]
--- NOTE | 2018-05-06 04:15 | PN ---
DATE: 05/05/2018 SUBJECTIVE: The patient is more awake today, but she denies any new medical or neurological complaints. OBJECTIVE: GENERAL: Well-developed, well-nourished white female, not in acute distress. VITAL SIGNS: Blood pressure 160/93, respiratory rate 20, pulse 72, temperature 98.4, oxygen saturation 99% on room air. HEENT: Normocephalic, atraumatic, otherwise, unremarkable. NECK: Supple. Negative for carotid bruit, lymphadenopathy or thyromegaly. LUNGS: Clear to A and P. CARDIOVASCULAR: Regular rhythm, normal S1, S2. There is no S3, S4 or murmur. ABDOMEN: Soft. Bowel sounds positive. EXTREMITIES: Negative for cyanosis, clubbing or pitting edema. NEUROLOGICAL EXAM: Mental Status: The patient is a bit drowsy, but arousable. She follows 1 simple step commands. Otherwise, she does not cooperate with the examination. Cranial nerves: The pupils are equal and reactive to light and accommodation. The extraocular movements are slow. There is no facial motor or sensory deficit. Hearing appears to be intact. Further evaluation is limited. Motor examination: The patient moves upper and lower extremities spontaneously, but she does not follow commands or cooperate with manual muscle examination, but the tone is normal. Sensory examination revealed normal pinprick and light touch senses throughout. Deep tendon reflexes were symmetric and hypoactive with absent Achilles responses. Gait not tested. LABORATORY DATA: CBC revealed white blood cells of 13.3, hemoglobin 13.7, hematocrit 40.5, platelet count 304,000. Chemistry revealed sodium of 141, potassium 3.5, chloride 107, CO2 of 26, BUN 13, creatinine 0.7, glucose 109, calcium 8.6. IMPRESSION: 1. Acute encephalopathy induced by overdose of Seroquel and possible polysubstance with a slight improvement in her mental status. 2. Multiple psychiatric problems including bipolar disorder, anxiety disorder, schizoaffective disorders. 3. History of polysubstance abuse including heroin, narcotics and amphetamine. 4. Leukocytosis. 5. ____ multiple psychiatric problems and psychosis. RECOMMENDATIONS: Continue with current management initiated by Dr. Asencio and Dr. Andrews including antibiotics, Bactrim-DS 1 tablet twice daily and potassium supplements 10 mEq daily. Cardiology consult because of elevated QTC and arrange for an echocardiogram. M Casa VIZCAINO MD DR: [place] JOB#: [id number] / [id number]
--- NOTE | 2018-05-06 04:29 | CONS ---
DATE OF CONSULTATION: 05/04/2018 NEUROLOGY CONSULTATION REFERRING PHYSICIAN: Dr. Andrews. REASON FOR CONSULTATION: Acute mental status changes. HISTORY OF PRESENT ILLNESS: This is a 42-year-old right-handed female, who was admitted through Emergency Room after she presented with acute mental status changes induced by overdose of Seroquel. According to the ER report, the patient took 20 tablets of 300 mg Seroquel and four of 50 mg of pain medications on 05/02/2018. She stated she had injected 0.25 gram of methamphetamine in the last few days. She was admitted to ICU for further evaluation. Poison Center had been contacted and recommended using alprazolam intravenously. Therefore, the patient was started on that medication. Currently, I was not able to interview the patient as she is not cooperative because of marked lethargic and not able to communicate. According to the ICU nursing, the patient has been like this since last night. However, she has been receiving alprazolam intravenously. PAST MEDICAL HISTORY: Significant for bipolar disorder, anxiety and depression with intermittent behavior disturbances with agitation and encephalopathy. She has been evaluated at [facility] in [place], and she was diagnosed of bipolar, schizoaffective disorders and polysubstance abuse as she had overused them in the past. PAST SURGICAL HISTORY: Consistent with cholecystectomy, tubal ligation and tonsillectomy. FAMILY HISTORY: Unobtainable. SOCIAL HISTORY: The patient is , and she has had several attempts of overdose in the past. She has used heroin as well. CURRENT HOSPITAL MEDICATIONS: Include magnesium, Dulcolax, ____ 100 mg q.4 hours p.r.n., clonidine 0.1 mg daily, Nicorette gum 2 mg, nicotine patch at 21 mg daily, Reglan 10 mg IV ____ b.i.d., hydralazine 20 mg IV q.8 hours p.r.n. for hypertension, Ativan 0.5-1 mg intravenously and multivitamins. ALLERGIES: No known drug allergies. REVIEW OF SYSTEMS: Unobtainable. PHYSICAL EXAMINATION: GENERAL: Well-developed and well-nourished female, not in acute distress. She weighs 145.4 pounds. VITAL SIGNS: Blood pressure 130/66, respiratory rate 20, pulse is 92 and regular, temperature 97.8, and oxygen saturation is 95% on room air. HEENT: Normocephalic, atraumatic, otherwise unremarkable. NECK: Supple. Negative for carotid bruit, lymphadenopathy or thyromegaly. LUNGS: Clear to A and P. CARDIOVASCULAR: Regular rate and rhythm, normal S1, S2. ABDOMEN: Soft. Bowel sounds positive. EXTREMITIES: Negative for cyanosis, clubbing or pitting edema. NEUROLOGICAL: MENTAL STATUS: The patient is very drowsy and not able to communicate at this time and does not follow any commands. Cranial nerves, this is limited because of lethargy. Motor examination: The patient moves her upper and lower extremities equally and spontaneously. The tone is normal. The patient is not able to cooperate with manual muscle exam. Sensory examination: Normal pinprick and light touch senses. Deep tendon reflexes were symmetric and hypoactive with absent Achilles responses. Gait not tested. LABORATORY DATA: CBC revealed white blood cells of 9100, hemoglobin 14.2, hematocrit 42.5, and platelet count 340,000. Chemistry revealed sodium of 144, potassium 3.3, chloride 108, CO2 of 28, BUN 8, creatinine 0.8, glucose 252, and calcium is 9 and lactic acid is normal. Urinalysis is negative for urinary tract infections. Urine drug screen is positive for amphetamine, methamphetamine and opiates. DIAGNOSTIC DATA: EKG revealed prolonged QTC. Initial nonenhanced head CT scan revealed no acute intracranial process. CT of the abdomen revealed moderate fecal impaction in the rectum, with distended urinary bladder, otherwise unremarkable. IMPRESSION: 1. Acute encephalopathy, likely induced by overdose of Seroquel in conjunction with methamphetamine. 2. History of polysubstance abuse including heroin. 3. Multiple medical psychiatric problems include schizoaffective disorders, bipolar disorder, anxiety disorders. RECOMMENDATIONS: 1. Continue with alprazolam as indicated in the protocol from [facility]. 2. Avoid excessive sedation as possible. 3. Otherwise, continue with current management initiated by Dr. Andrews. M Casa VIZCAINO MD DR: PAMELA/agatha JOB#: [id number] / [id number]
[2018-05-06] MEDS: METOCLOPRAMIDE HCL 10 MG/2 ML VIAL. IV SCH ×4 (06:34→20:47)
[2018-05-06 06:40] LABS: BASO # 0.1 x10^3/uL (0.0-0.2); BASO % 1 % (0-3); EOS # 0.3 x10^3/uL (0.0-0.7); EOS % 3 % (0-3); HEMATOCRIT 39.9 % (36.0-47.0); HEMOGLOBIN 13.6 g/dL (12.0-15.5); LYMPH # 1.8 x10^3/uL (1.0-4.8); LYMPH % 20 % (24-48); MEAN CORPUSCULAR HEMOGLOBIN 31 pg (25-35); MEAN CORPUSCULAR HGB CONC 34 g/dL (31-37); MEAN CORPUSCULAR VOLUME 91 fL (79-100); MONO # 0.5 x10^3/uL (0.0-1.1); MONO % 5 % (0-9); NEUT # 6.2 x10^3uL (1.8-7.7); NEUT % 71 % (31-73); PLATELET COUNT 199 x10^3/uL (140-400); RED CELL DISTRIBUTION WIDTH 14.4 % (11.5-14.5); WHITE BLOOD COUNT 8.8 x10^3/uL (4.0-11.0)
[2018-05-06 06:50] LABS: CALCIUM 8.6 mg/dL (8.5-10.1); CREATININE 0.6 mg/dL (0.6-1.0); GFR 109.1; POTASSIUM 3.9 mmol/L (3.5-5.1); TOTAL BILIRUBIN 0.3 mg/dL (0.2-1.0)
[2018-05-06] MEDS: NICOTINE 21MG PATCH. TD SCH (08:35)
[2018-05-06] MEDS: POLYETHYLENE GLYCOL 3350 17 GM PACKET. PO SCH (08:35)
[2018-05-06] MEDS ORDERED: ONDANSETRON PF 4 MG/2 ML VIAL. IV PRN (08:45)
[2018-05-06] MEDS: MVI, ADULT NO.4 WITH VIT K 10 ML, FOLIC ACID 1 MG, THIAMINE 100 MG in IV DEXTROSE 5%-LA... IV SCH ×4 (08:59)
[2018-05-06] MEDS: hydrALAZINE 20 MG/ML VIAL. IV PRN (09:00)
[2018-05-06] MEDS: ONDANSETRON PF 4 MG/2 ML VIAL. IV PRN ×2 (09:01→18:18)
[2018-05-06] MEDS ORDERED: AA 3%/ELECTROLYTE-TPN SOLN/GLY 1,000 ML IV SCH (09:10)
--- NOTE | 2018-05-06 09:54 | PDOC ---
PROGRESS NOTES Diagnosis Problem Problems Medical Problems: (1) Mental confusion Status: Acute (2) Overdose Status: Acute Assessment Problems Medical Problems: (1) Mental confusion Status: Acute (2) Overdose Status: Acute 1. prolonged QT - likely secondary to Seroquel overdose. QTC yesterday improved to 477. 2. hypertension - likely exacerbated by acute nausea and vomiting. Hydralazine adjusted per PCP. 3. leukocytosis - mgmt per PCP. No evidence of vegetation by echo. 4. nausea /vomiting - mgmt per PCP 5. SA with Seroquel overdose - per psych 6. bipolar disorder with psychotic features, delirium - per Psych 7. tobaccoism and polysubstance abuse - cessation recommended, per Psych Subjective acute nausea and vomiting started after eating food brought by family. no chest pain, c/o anxiety. Objective Echo \ The left ventricular systolic function is normal and the ejection fraction is within normal range. EF 65% There is normal LV segmental wall motion. No evidence of vegetation on the aortic, mitral and tricupid valves. If there is high clinical suspicion, consider GERALD. Vital Signs Date Time Temp Pulse Resp B/P (MAP) Pulse Ox O2 Delivery O2 Flow Rate FiO2 05/06/18 09:35 77 18 145/82 (103) 96 Room Air 05/06/18 08:30 97.9 05/03/18 02:54 2.0 Intake and Output 05/06/18 07:00 Intake Total 6272 ml Output Total 1150 ml Balance 5122 ml Intake Oral 2347 ml IV Total 3925 ml Output Urine Total 900 ml Emesis 250 ml # Voids 4 # Bowel Movements 1 Abdomen: Normal bowel sounds, Soft Heart: Regular rate, Normal S1, Normal S2 Extremities: No cyanosis, No edema General: Alert, Cooperative, mild distress HEENT: Atraumatic Lungs: Clear to auscultation Psych/Mental Status: Other (flat affect) Review of Relevant I have reviewed the following items rogerio (where applicable) has been applied. Labs Laboratory Tests Test 05/04/18 11:05 05/05/18 06:10 05/06/18 06:00 White Blood Count 9.1 x10^3/uL (4.0-11.0) 13.3 x10^3/uL (4.0-11.0) 8.8 x10^3/uL (4.0-11.0) Red Blood Count 4.65 x10^6/uL (3.50-5.40) 4.46 x10^6/uL (3.50-5.40) 4.40 x10^6/uL (3.50-5.40) Hemoglobin 14.2 g/dL (12.0-15.5) 13.7 g/dL (12.0-15.5) 13.6 g/dL (12.0-15.5) Hematocrit 42.5 % (36.0-47.0) 40.5 % (36.0-47.0) 39.9 % (36.0-47.0) Mean Corpuscular Volume 91 fL (79-100) 91 fL (79-100) 91 fL (79-100) Mean Corpuscular Hemoglobin 31 pg (25-35) 31 pg (25-35) 31 pg (25-35) Mean Corpuscular Hemoglobin Concent 34 g/dL (31-37) 34 g/dL (31-37) 34 g/dL (31-37) Red Cell Distribution Width 14.6 % (11.5-14.5) 14.6 % (11.5-14.5) 14.4 % (11.5-14.5) Platelet Count 340 x10^3/uL (140-400) 304 x10^3/uL (140-400) 199 x10^3/uL (140-400) Neutrophils (%) (Auto) 87 % (31-73) 83 % (31-73) 71 % (31-73) Lymphocytes (%) (Auto) 9 % (24-48) 10 % (24-48) 20 % (24-48) Monocytes (%) (Auto) 4 % (0-9) 5 % (0-9) 5 % (0-9) Eosinophils (%) (Auto) 1 % (0-3) 2 % (0-3) 3 % (0-3) Basophils (%) (Auto) 0 % (0-3) 1 % (0-3) 1 % (0-3) Neutrophils # (Auto) 7.9 x10^3uL (1.8-7.7) 11.0 x10^3uL (1.8-7.7) 6.2 x10^3uL (1.8-7.7) Lymphocytes # (Auto) 0.8 x10^3/uL (1.0-4.8) 1.3 x10^3/uL (1.0-4.8) 1.8 x10^3/uL (1.0-4.8) Monocytes # (Auto) 0.3 x10^3/uL (0.0-1.1) 0.6 x10^3/uL (0.0-1.1) 0.5 x10^3/uL (0.0-1.1) Eosinophils # (Auto) 0.1 x10^3/uL (0.0-0.7) 0.3 x10^3/uL (0.0-0.7) 0.3 x10^3/uL (0.0-0.7) Basophils # (Auto) 0.0 x10^3/uL (0.0-0.2) 0.1 x10^3/uL (0.0-0.2) 0.1 x10^3/uL (0.0-0.2) Segmented Neutrophils % 85 % (35-66) Lymphocytes % 7 % (24-48) Monocytes % 8 % (0-10) Platelet Estimate Adequate (ADEQUATE) Sodium Level 144 mmol/L (136-145) 141 mmol/L (136-145) 140 mmol/L (136-145) Potassium Level 3.3 mmol/L (3.5-5.1) 3.5 mmol/L (3.5-5.1) 3.9 mmol/L (3.5-5.1) Chloride Level 108 mmol/L (98-107) 107 mmol/L (98-107) 105 mmol/L (98-107) Carbon Dioxide Level 28 mmol/L (21-32) 26 mmol/L (21-32) 29 mmol/L (21-32) Anion Gap 8 (6-14) 8 (6-14) 6 (6-14) Blood Urea Nitrogen 8 mg/dL (7-20) 13 mg/dL (7-20) 8 mg/dL (7-20) Creatinine 0.8 mg/dL (0.6-1.0) 0.7 mg/dL (0.6-1.0) 0.6 mg/dL (0.6-1.0) Estimated GFR (Cockcroft-Gault) 78.3 91.3 109.1 Glucose Level 252 mg/dL (70-99) 109 mg/dL (70-99) 135 mg/dL (70-99) Lactic Acid Level 1.6 mmol/L (0.4-2.0) Calcium Level 9.0 mg/dL (8.5-10.1) 8.6 mg/dL (8.5-10.1) 8.6 mg/dL (8.5-10.1) Ammonia < 10 mcmol/L (11-34) BUN/Creatinine Ratio 13 (6-20) Magnesium Level 2.0 mg/dL (1.8-2.4) Total Bilirubin 0.3 mg/dL (0.2-1.0) Aspartate Amino Transf (AST/SGOT) 31 U/L (15-37) Alanine Aminotransferase (ALT/SGPT) 69 U/L (14-59) Alkaline Phosphatase 98 U/L (46-116) Total Protein 6.0 g/dL (6.4-8.2) Albumin 3.0 g/dL (3.4-5.0) Albumin/Globulin Ratio 1.0 (1.0-1.7) Medications Current Medications Multivitamins/ Minerals 10 ml/ Folic Acid 1 mg/ Thiamine HCl 100 mg/Dextrose/ Lactated Ringer's 1,011.2 ml @ 0 mls/hr 1X ONCE IV Last administered on at 21:30; Start 05/02/18 at 21:30; Stop 05/02/18 at 21:35; Status DC Thiamine HCl 200 mg STK-MED ONCE IV ; Start 05/02/18 at 21:27; Stop 05/02/18 at 21 :28; Status DC Folic Acid (FOLIC ACID SYRINGE for ER) 5 mg STK-MED ONCE IV ; Start 05/02/18 at 21:28; Stop 05/02/18 at 21:29; Status DC Folic Acid (FOLIC ACID SYRINGE for ER) 5 mg STK-MED ONCE IV ; Start 05/02/18 at 21:28; Stop 05/02/18 at 21:29; Status DC Multivitamins/ Minerals 10 ml/ Folic Acid 1 mg/ Thiamine HCl 100 mg/Lactated Ringer's 1,011.1 ml @ 1,000 mls/ hr DAILY IV ; Start 05/03/18 at 09:00; Status UNV Lactated Ringer's 1,000 ml @ 200 mls/hr Q5H IV Last administered on 05/04/18at 05:30; Start 05/02/18 at 23:30; Stop 05/05/18 at 14:26; Status DC Lactated Ringer's 1,000 ml @ 1,000 mls/hr 1X STAT IV Last administered on 05/02at 00:15; Start 05/02/18 at 23:39; Stop 05/03/18 at 00:38; Status DC Multivitamins/ Minerals 10 ml/ Folic Acid 1 mg/ Thiamine HCl 100 mg/Dextrose/ Lactated Ringer's 1,011.2 ml @ 1,000 mls/ hr DAILY IV Last administered on 11/11at 08:59; Start 05/03/18 at 09:00 Magnesium Sulfate 50 ml @ 25 mls/hr 1X ONCE IV Last administered on 05/03/18at 02:08; Start 05/03/18 at 01:15; Stop 05/03/18 at 03:14; Status DC Haloperidol Lactate (Haldol) 2 mg PRN Q6HRS PRN IVP AGITATION; Start 05/03/18 at 15:15; Stop 05/03/18 at 15:17; Status DC Haloperidol Lactate (Haldol) 2 mg PRN Q6HRS PRN IM AGITATION; Start 05/03/18 at 15:17; Stop 05/03/18 at 15:40; Status DC Lorazepam (Ativan) 0.5 mg PRN Q1HR PRN IV ANXIETY / AGITATION Last administered on 05/05/18at 21:02; Start 05/03/18 at 15:45 Amino Acids/ Glycerin/ Electrolytes 1,000 ml @ 80 mls/hr [id number] IV Last administered on 05/05/18at 04:32; Start 05/04/18 at 10:15; Stop 05/05/18 at 18:44 ; Status DC Magnesium Sulfate 50 ml @ 25 mls/hr 1X ONCE IV Last administered on 05/04/18at 11:41; Start 05/04/18 at 11:30; Stop 05/04/18 at 13:29; Status DC Metoclopramide HCl (Reglan Vial) 10 mg QIDACHS IV Last administered on at 06:34; Start 05/04/18 at 16:30 Hydralazine HCl (Apresoline) 20 mg PRN Q8HRS PRN IV ELEVATED BP, SEE COMMENTS Last administered on 05/06/18at 09:00; Start 05/04/18 at 12:45; Stop 05/06/18 at 09:17; Status DC Nicotine (Nicoderm Cq 21mg) 1 patch DAILY TD Last administered on 05/06/18at 08: 35; Start 05/05/18 at 12:45 Nicotine Polacrilex (Nicorette Gum) 2 mg PRN Q1HR PRN BC SMOKING CESSATION; Start 05/05/18 at 12:45 Calcium Carbonate/ Glycine (Tums) 500 mg PRN AFTMEALHC PRN PO INDIGESTION Last administered on 05/05/18at 21:56; Start 05/05/18 at 13:00 Clonidine HCl (Catapres) 0.1 mg Q6HRS PRN PO ELEVATED BP, SEE COMMENTS; Start 05/05/18 at 13:15 Chlordiazepoxide (Librium) 50 mg PRN Q4HRS PRN PO WITHDRAWAL Last administered on 05/06/18at 05:06; Start 05/05/18 at 13:15 Chlordiazepoxide (Librium) 100 mg PRN Q4HRS PRN PO WITHDRAWAL Last administered on 05/05/18at 13:28; Start 05/05/18 at 13:15 Bisacodyl (Dulcolax Tab) 10 mg PRN DAILY PRN PO CONSTIPATION; Start 05/05/18 at 13:15 Magnesium Hydroxide (Milk Of Magnesia) 2,400 mg PRN DAILY PRN PO CONSTIPATION Last administered on 05/05/18at 13:28; Start 05/05/18 at 13:15 Polyethylene Glycol (miraLAX) 17 gm DAILY PO Last administered on 05/06/18at 08: 35; Start 05/05/18 at 13:15 Ondansetron HCl (Zofran) 4 mg PRN Q6HRS PRN IV NAUSEA/VOMITING; Start 05/06/18 at 08:45; Stop 05/06/18 at 08:48; Status DC Ondansetron HCl (Zofran) 4 mg PRN Q6HRS PRN IV NAUSEA/VOMITING Last administered on 05/06/18at 09:01; Start 05/06/18 at 09:00 Pantoprazole Sodium 80 mg/ Sodium Chloride 100 ml @ 10 mls/hr Q10H IV ; Start 05/05/18 at 10:00 Hydralazine HCl (Apresoline) 20 mg TID IV ; Start 05/06/18 at 14:00 Amino Acids/ Glycerin/ Electrolytes 1,000 ml @ 80 mls/hr [id number] IV ; Start 11/11 at 09:10; Stop 05/06/18 at 09:19; Status DC Fat Emulsion Intravenous 250 ml @ 21 mls/hr Q24H IV ; Start 05/06/18 at 22:00; Stop 05/06/18 at 22:00; Status DC Active Scripts Active Potassium Chloride 10 Meq Tablet.er 10 Meq PO DAILY 5 Days Bactrim Ds Tablet (Sulfamethoxazole/Trimethoprim) 1 Each Tablet 1 Tab PO BID Zofran (Ondansetron Hcl) 4 Mg Tablet 1 Tab PO PRN Q6HRS PRN Vitals/I & O Vital Sign - Last 24 Hours 05/05/18 05/05/18 05/05/18 05/05/18 10:19 11:30 12:30 13:31 Temp 97.8 Pulse 74 74 72 91 Resp 20 20 20 20 B/P (MAP) 163/96 (118) 173/104 (127) 114/78 (90) 113/59 (77) Pulse Ox 99 94 97 97 O2 Delivery Room Air Room Air Room Air Room Air 05/05/18 05/05/18 05/05/18 05/05/18 14:00 16:25 17:13 18:28 Pulse 89 84 93 95 Resp 20 16 18 16 B/P (MAP) 105/66 (79) 119/85 (96) 119/85 (96) 96/51 (66) Pulse Ox 95 96 96 96 O2 Delivery Room Air Room Air Room Air Room Air 05/05/18 05/05/18 05/05/18 05/05/18 19:32 21:00 22:00 23:00 Temp 97.9 97.7 Pulse 100 93 97 91 Resp 17 18 17 17 B/P (MAP) 106/49 (68) 101/62 (75) 116/67 (83) 111/63 (79) Pulse Ox 95 96 94 95 O2 Delivery Nasal Cannula Room Air Room Air 05/06/18 05/06/18 05/06/18 05/06/18 00:01 02:00 03:00 04:05 Pulse 100 77 80 74 Resp 18 17 17 16 B/P (MAP) 116/67 (83) 110/61 (77) 156/91 (112) 112/63 (79) Pulse Ox 96 95 94 93 O2 Delivery Room Air Room Air 05/06/18 05/06/18 05/06/18 05/06/18 05:00 06:07 08:30 09:00 Temp 97.9 Pulse 76 72 69 69 Resp 18 16 22 B/P (MAP) 164/93 (116) 180/90 (120) 175/97 (123) 175/97 Pulse Ox 94 93 96 O2 Delivery Room Air Room Air 05/06/18 09:35 Pulse 77 Resp 18 B/P (MAP) 145/82 (103) Pulse Ox 96 O2 Delivery Room Air Intake and Output 05/05/18 05/05/18 05/06/18 15:00 23:00 07:00 Intake Total 1482 ml 1690 ml 3100 ml Output Total 900 ml 250 ml Balance 1482 ml 790 ml 2850 ml YOLANDA OSULLIVAN APRN May 06, 2018 09:54
[2018-05-06] MEDS: PANTOPRAZOLE IV 40 MG VIAL. IVP SCH ×2 (12:43→20:47)
[2018-05-06] MEDS: LORazepam 2 MG/ML VIAL IV PRN ×2 (13:51→18:18)
[2018-05-06] MEDS: hydrALAZINE 20 MG/ML VIAL. IV SCH ×2 (14:00→20:49)
--- NOTE | 2018-05-06 18:00 | PDOC ---
Exam Note: Hernán Note: Please also refer to the separate dictated note~for this date of service dictated separately.~Patient seen individually. Discussed the patient with Nursing staff reviewed the chart.~Reviewed interim history and current functioning. Reviewed vital signs,~Labs/ Radiology~and current medications noted below. Continue current treatment with the changes noted in the dictated addendum note Assessment: Vital Signs: Vital Signs Date Time Temp Pulse Resp B/P (MAP) Pulse Ox O2 Delivery O2 Flow Rate FiO2 05/06/18 16:53 97 18 117/70 (86) 96 Room Air 05/06/18 08:30 97.9 05/03/18 02:54 2.0 I&O Intake and Output 05/06/18 07:00 Intake Total 7282 ml Output Total 1150 ml Balance 6132 ml Intake Oral 2347 ml IV Total 4935 ml Output Urine Total 900 ml Emesis 250 ml # Voids 4 # Bowel Movements 1 Labs: Laboratory Tests Test 05/06/18 06:00 White Blood Count 8.8 x10^3/uL (4.0-11.0) Red Blood Count 4.40 x10^6/uL (3.50-5.40) Hemoglobin 13.6 g/dL (12.0-15.5) Hematocrit 39.9 % (36.0-47.0) Mean Corpuscular Volume 91 fL (79-100) Mean Corpuscular Hemoglobin 31 pg (25-35) Mean Corpuscular Hemoglobin Concent 34 g/dL (31-37) Red Cell Distribution Width 14.4 % (11.5-14.5) Platelet Count 199 x10^3/uL (140-400) Neutrophils (%) (Auto) 71 % (31-73) Lymphocytes (%) (Auto) 20 % (24-48) L Monocytes (%) (Auto) 5 % (0-9) Eosinophils (%) (Auto) 3 % (0-3) Basophils (%) (Auto) 1 % (0-3) Neutrophils # (Auto) 6.2 x10^3uL (1.8-7.7) Lymphocytes # (Auto) 1.8 x10^3/uL (1.0-4.8) Monocytes # (Auto) 0.5 x10^3/uL (0.0-1.1) Eosinophils # (Auto) 0.3 x10^3/uL (0.0-0.7) Basophils # (Auto) 0.1 x10^3/uL (0.0-0.2) Sodium Level 140 mmol/L (136-145) Potassium Level 3.9 mmol/L (3.5-5.1) Chloride Level 105 mmol/L (98-107) Carbon Dioxide Level 29 mmol/L (21-32) Anion Gap 6 (6-14) Blood Urea Nitrogen 8 mg/dL (7-20) Creatinine 0.6 mg/dL (0.6-1.0) Estimated GFR (Cockcroft-Gault) 109.1 BUN/Creatinine Ratio 13 (6-20) Glucose Level 135 mg/dL (70-99) H Calcium Level 8.6 mg/dL (8.5-10.1) Magnesium Level 2.0 mg/dL (1.8-2.4) Total Bilirubin 0.3 mg/dL (0.2-1.0) Aspartate Amino Transferase (AST) 31 U/L (15-37) Alanine Aminotransferase (ALT) 69 U/L (14-59) H Alkaline Phosphatase 98 U/L (46-116) Total Protein 6.0 g/dL (6.4-8.2) L Albumin 3.0 g/dL (3.4-5.0) L Albumin/Globulin Ratio 1.0 (1.0-1.7) Current Medications: Meds: Current Medications Multivitamins/ Minerals 10 ml/ Folic Acid 1 mg/ Thiamine HCl 100 mg/Dextrose/ Lactated Ringer's 1,011.2 ml @ 0 mls/hr 1X ONCE IV Last administered on at 21:30; Start 05/02/18 at 21:30; Stop 05/02/18 at 21:35; Status DC Thiamine HCl 200 mg STK-MED ONCE IV ; Start 05/02/18 at 21:27; Stop 05/02/18 at 21 :28; Status DC Folic Acid (FOLIC ACID SYRINGE for ER) 5 mg STK-MED ONCE IV ; Start 05/02/18 at 21:28; Stop 05/02/18 at 21:29; Status DC Folic Acid (FOLIC ACID SYRINGE for ER) 5 mg STK-MED ONCE IV ; Start 05/02/18 at 21:28; Stop 05/02/18 at 21:29; Status DC Multivitamins/ Minerals 10 ml/ Folic Acid 1 mg/ Thiamine HCl 100 mg/Lactated Ringer's 1,011.1 ml @ 1,000 mls/ hr DAILY IV ; Start 05/03/18 at 09:00; Status UNV Lactated Ringer's 1,000 ml @ 200 mls/hr Q5H IV Last administered on 05/04/18at 05:30; Start 05/02/18 at 23:30; Stop 05/05/18 at 14:26; Status DC Lactated Ringer's 1,000 ml @ 1,000 mls/hr 1X STAT IV Last administered on 05/02at 00:15; Start 05/02/18 at 23:39; Stop 05/03/18 at 00:38; Status DC Multivitamins/ Minerals 10 ml/ Folic Acid 1 mg/ Thiamine HCl 100 mg/Dextrose/ Lactated Ringer's 1,011.2 ml @ 1,000 mls/ hr DAILY IV Last administered on 11/11at 08:59; Start 05/03/18 at 09:00 Magnesium Sulfate 50 ml @ 25 mls/hr 1X ONCE IV Last administered on 05/03/18at 02:08; Start 05/03/18 at 01:15; Stop 05/03/18 at 03:14; Status DC Haloperidol Lactate (Haldol) 2 mg PRN Q6HRS PRN IVP AGITATION; Start 05/03/18 at 15:15; Stop 05/03/18 at 15:17; Status DC Haloperidol Lactate (Haldol) 2 mg PRN Q6HRS PRN IM AGITATION; Start 05/03/18 at 15:17; Stop 05/03/18 at 15:40; Status DC Lorazepam (Ativan) 0.5 mg PRN Q1HR PRN IV ANXIETY / AGITATION Last administered on 05/06/18at 13:51; Start 05/03/18 at 15:45 Amino Acids/ Glycerin/ Electrolytes 1,000 ml @ 80 mls/hr [id number] IV Last administered on 05/05/18at 04:32; Start 05/04/18 at 10:15; Stop 05/05/18 at 18:44 ; Status DC Magnesium Sulfate 50 ml @ 25 mls/hr 1X ONCE IV Last administered on 05/04/18 11:41; Start 05/04/18 at 11:30; Stop 05/04/18 at 13:29; Status DC Metoclopramide HCl (Reglan Vial) 10 mg QIDACHS IV Last administered on at 16:40; Start 05/04/18 at 16:30 Hydralazine HCl (Apresoline) 20 mg PRN Q8HRS PRN IV ELEVATED BP, SEE COMMENTS Last administered on 05/06/18 09:00; Start 05/04/18 at 12:45; Stop 05/06/18 at 09:17; Status DC Nicotine (Nicoderm Cq 21mg) 1 patch DAILY TD Last administered on 05/06/18 08: 35; Start 05/05/18 at 12:45 Nicotine Polacrilex (Nicorette Gum) 2 mg PRN Q1HR PRN BC SMOKING CESSATION; Start 05/05/18 at 12:45 Calcium Carbonate/ Glycine (Tums) 500 mg PRN AFTMEALHC PRN PO INDIGESTION Last administered on 05/05/18at 21:56; Start 05/05/18 at 13:00 Clonidine HCl (Catapres) 0.1 mg Q6HRS PRN PO ELEVATED BP, SEE COMMENTS; Start 05/05/18 at 13:15 Chlordiazepoxide (Librium) 50 mg PRN Q4HRS PRN PO WITHDRAWAL Last administered on 05/06/18 05:06; Start 05/05/18 at 13:15 Chlordiazepoxide (Librium) 100 mg PRN Q4HRS PRN PO WITHDRAWAL Last administered on 05/05/18 13:28; Start 05/05/18 at 13:15 Bisacodyl (Dulcolax Tab) 10 mg PRN DAILY PRN PO CONSTIPATION; Start 05/05/18 at 13:15 Magnesium Hydroxide (Milk Of Magnesia) 2,400 mg PRN DAILY PRN PO CONSTIPATION Last administered on 05/05/18 13:28; Start 05/05/18 at 13:15 Polyethylene Glycol (miraLAX) 17 gm DAILY PO Last administered on 05/06/18 08: 35; Start 05/05/18 at 13:15 Ondansetron HCl (Zofran) 4 mg PRN Q6HRS PRN IV NAUSEA/VOMITING; Start 05/06/18 at 08:45; Stop 05/06/18 at 08:48; Status DC Ondansetron HCl (Zofran) 4 mg PRN Q6HRS PRN IV NAUSEA/VOMITING Last administered on 05/06/18at 09:01; Start 05/06/18 at 09:00 Pantoprazole Sodium 80 mg/ Sodium Chloride 100 ml @ 10 mls/hr Q10H IV ; Start 05/05/18 at 10:00; Stop 05/06/18 at 11:31; Status DC Hydralazine HCl (Apresoline) 20 mg TID IV ; Start 05/06/18 at 14:00 Amino Acids/ Glycerin/ Electrolytes 1,000 ml @ 80 mls/hr [id number] IV ; Start 11/11 at 09:10; Stop 05/06/18 at 09:19; Status DC Fat Emulsion Intravenous 250 ml @ 21 mls/hr Q24H IV ; Start 05/06/18 at 22:00; Stop 05/06/18 at 22:00; Status DC Pantoprazole Sodium (Protonix Vial) 40 mg BID IVP ; Start 05/06/18 at 21:00; Stop 05/06/18 at 21:00; Status DC Pantoprazole Sodium (Protonix Vial) 40 mg BID IVP Last administered on at 12:43; Start 05/06/18 at 12:15 Active Scripts Active Potassium Chloride 10 Meq Tablet.er 10 Meq PO DAILY 5 Days Bactrim Ds Tablet (Sulfamethoxazole/Trimethoprim) 1 Each Tablet 1 Tab PO BID Zofran (Ondansetron Hcl) 4 Mg Tablet 1 Tab PO PRN Q6HRS PRN I have reviewed the current psychotropics carefully including drug interactions. Risk benefit ratio favors no change other than as noted in my dictated progress note. Diagnosis: Problems: (1) Methamphetamine abuse (2) Bipolar affective, mixed, sev w/ psych (3) Psychosis, atypical (4) Impulse control disorder (5) Anxiety disorder (6) Mental confusion (7) Overdose HAIDER RODRIGUEZ MD May 06, 2018 18:00
[2018-05-06] MEDS ORDERED: PANTOPRAZOLE IV 40 MG VIAL. IVP SCH (21:00)
[2018-05-06] MEDS ORDERED: FAT EMULSIONS 20% 250 ML IV SCH (22:00)
--- NOTE | 2018-05-06 22:28 | PN ---
DATE: 05/05/2018 This is a late entry for 05/05/2018 covers elements not covered in my initial note of 05/05/2018. SUBJECTIVE: I met with the patient in the evening. Her was lying in bed with her. Per nursing report, the patient has been more awake and responsive. When nursing staff questioned her, she has made statements that when she is discharged, she is going to try and end her life once again and that she will overdose once again and made vague statements to nursing staff that she was thinking of shooting her and then herself, but denies that currently . Given her marked substance usage history and repeated overdose and psychiatric diagnoses, these continued to be of significant concern and I have shared with nursing staff to arrange evaluation by the [facility] for screening for inpatient psychiatric treatment, perhaps at the state facility when she is medically stable. MENTAL STATUS EXAM: The patient is lying in bed with her . She is oriented to place and situation. Speech has some latency, coherent. Abstraction fair, computation impaired, language function intact. Attention span short. No active suicidal or homicidal ideation, but concerns observed are noted above per nursing report. IMPRESSION: Bipolar 1 disorder, mixed, status post overdose, suicide attempt, history of polysubstance abuse. PLAN: No change from a psychiatric standpoint. Avoid antipsychotics till the overdose of Seroquel is finally clear from her system and arrange inpatient psychiatric hospitalization in coordination with the [facility]. HAIDER RODRIGUEZ MD DR: KRISTIAN/agatha JOB#: [id number] / [id number]
--- NOTE | 2018-05-06 23:05 | PN ---
DATE: 05/06/2018 SUBJECTIVE: This is a 42-year-old female. She is still in the ICU. She is a lot more alert today than she has been and shows some signs of improving overall. However, the patient has still had copious amounts of bile-appearing vomitus. Her blood pressure has also been elevated. We changed her hydralazine to IV continually because she is not able to eat and she is showing continued deterioration of her albumin. The patient has been placed on TPN to help regain some of her nutritional status improved. The patient's CT scan of the abdomen and pelvis basically as a recall was unremarkable and that it did not show any obvious signs of a problem. She was placed on IV push Protonix as well as the TPN off the procalamine. OBJECTIVE: VITAL SIGNS: Blood pressure that of 140/90, respiratory rate 18, pulse 90, afebrile. GENERAL: The patient is alert and oriented, more so than usual, although still somewhat lethargic, but improved, able to sit up in bed presently. LUNGS: Diminished, but clear. CARDIOVASCULAR: Regular sinus rhythm. ABDOMEN: Soft, definitely some tenderness in the epigastric area, but nothing more than that right at the present time. EXTREMITIES: Shows marked musculoskeletal atrophy as well. LABORATORY DATA: As discussed earlier. IMPRESSION: Therefore suicide attempt, drug overdose, polysubstance abuse, moderate to severe protein malnutrition, severe nausea, vomiting, uncontrolled, acute mental confusion, overdose, prolonged QT interval secondary to Seroquel overdose. PLAN: The patient is working with PT, OT, Psychiatry, Neurology as well as Cardiology. CT scan of the head was unremarkable. Continue to monitor the patient. We will accordingly make further evaluation on her as indicated along with other fine specialists seeing her. Continue rehabilitation program with her. IMPRESSION: Toxic encephalopathy secondary to drug overdose, suicide attempt, polysubstance abuse, mild to moderate protein malnutrition secondary to drugs, severe depression, lethargy, severe nausea, vomiting, uncontrolled hypertension essential, electrolyte imbalance. DAVID TANNER MD DR: HAROON/agatha JOB#: [id number] / [id number]
[2018-05-07] VITALS: BP 141/75
[2018-05-07] MEDS: CALCIUM CARBONATE 500 MG TAB.CHEW PO PRN (02:00)
[2018-05-07] MEDS: LORazepam 2 MG/ML VIAL IV PRN (03:39)
[2018-05-07 04:00] VITALS: BP 159/84
[2018-05-07 07:11] LABS: ALBUMIN 3.4 g/dL (3.4-5.0); ALBUMIN/GLOBULIN RATIO 0.9 (1.0-1.7); CALCIUM 9.4 mg/dL (8.5-10.1); CREATININE 0.7 mg/dL (0.6-1.0); GFR 91.3; POTASSIUM 3.7 mmol/L (3.5-5.1); TOTAL BILIRUBIN 0.5 mg/dL (0.2-1.0); TOTAL PROTEIN 7.1 g/dL (6.4-8.2)
[2018-05-07] MEDS: MVI, ADULT NO.4 WITH VIT K 10 ML, FOLIC ACID 1 MG, THIAMINE 100 MG in IV DEXTROSE 5%-LA... IV SCH ×4 (09:00)
[2018-05-07] MEDS: hydrALAZINE 20 MG/ML VIAL. IV SCH (09:00)
[2018-05-07] MEDS: POLYETHYLENE GLYCOL 3350 17 GM PACKET. PO SCH (09:00)
[2018-05-07] MEDS: METOCLOPRAMIDE HCL 10 MG/2 ML VIAL. IV SCH (10:20)
[2018-05-07] MEDS: ONDANSETRON PF 4 MG/2 ML VIAL. IV PRN (10:20)
[2018-05-07] MEDS: PANTOPRAZOLE IV 40 MG VIAL. IVP SCH (10:20)
[2018-05-07] MEDS: NICOTINE 21MG PATCH. TD SCH (10:22)
--- NOTE | 2018-05-07 10:38 | PDOC ---
PROGRESS NOTES Diagnosis Problem Problems Medical Problems: (1) Mental confusion Status: Acute (2) Overdose Status: Acute Assessment Problems Medical Problems: (1) Mental confusion Status: Acute (2) Overdose Status: Acute 1. prolonged QT - likely secondary to Seroquel overdose. improving. repeat EKG today. 2. hypertension - likely exacerbated by acute nausea and vomiting and withdrawal. Improving on IV Hydralazine and PRN clonidine. 3. leukocytosis - mgmt per PCP. No evidence of vegetation by echo. 4. nausea /vomiting - mgmt per PCP, on IV nutrition replacement. 5. SA with Seroquel overdose - per psych 6. bipolar disorder with psychotic features, delirium - per Psych 7. tobaccoism and polysubstance abuse - cessation recommended, per Psych Subjective no chest pain, no palpitations, no dyspnea, continued nausea Objective Vital Signs Date Time Temp Pulse Resp B/P (MAP) Pulse Ox O2 Delivery O2 Flow Rate FiO2 05/07/18 04:00 94 18 159/84 (109) 93 Room Air 05/06/18 20:41 97.7 05/03/18 02:54 2.0 Intake and Output 05/07/18 07:00 Intake Total 1011.2 ml Output Total 850 ml Balance 161.2 ml Intake Oral 0 ml IV Total 1011.2 ml Emesis 850 ml # Voids 5 # Bowel Movements 1 Abdomen: Normal bowel sounds, Soft Heart: Regular rate, Normal S1, Normal S2 Extremities: No cyanosis, Normal pulses General: Oriented X3, No acute distress, Other (lethargic but wakes easily) Lungs: Other (decreased bases, otherwise clear) Neuro: Normal speech Psych/Mental Status: Other (flat affect) Review of Relevant I have reviewed the following items rogerio (where applicable) has been applied. Labs Laboratory Tests Test 05/06/18 06:00 05/07/18 05:50 White Blood Count 8.8 x10^3/uL (4.0-11.0) Red Blood Count 4.40 x10^6/uL (3.50-5.40) Hemoglobin 13.6 g/dL (12.0-15.5) Hematocrit 39.9 % (36.0-47.0) Mean Corpuscular Volume 91 fL (79-100) Mean Corpuscular Hemoglobin 31 pg (25-35) Mean Corpuscular Hemoglobin Concent 34 g/dL (31-37) Red Cell Distribution Width 14.4 % (11.5-14.5) Platelet Count 199 x10^3/uL (140-400) Neutrophils (%) (Auto) 71 % (31-73) Lymphocytes (%) (Auto) 20 % (24-48) Monocytes (%) (Auto) 5 % (0-9) Eosinophils (%) (Auto) 3 % (0-3) Basophils (%) (Auto) 1 % (0-3) Neutrophils # (Auto) 6.2 x10^3uL (1.8-7.7) Lymphocytes # (Auto) 1.8 x10^3/uL (1.0-4.8) Monocytes # (Auto) 0.5 x10^3/uL (0.0-1.1) Eosinophils # (Auto) 0.3 x10^3/uL (0.0-0.7) Basophils # (Auto) 0.1 x10^3/uL (0.0-0.2) Sodium Level 140 mmol/L (136-145) 139 mmol/L (136-145) Potassium Level 3.9 mmol/L (3.5-5.1) 3.7 mmol/L (3.5-5.1) Chloride Level 105 mmol/L (98-107) 104 mmol/L (98-107) Carbon Dioxide Level 29 mmol/L (21-32) 25 mmol/L (21-32) Anion Gap 6 (6-14) 10 (6-14) Blood Urea Nitrogen 8 mg/dL (7-20) 6 mg/dL (7-20) Creatinine 0.6 mg/dL (0.6-1.0) 0.7 mg/dL (0.6-1.0) Estimated GFR (Cockcroft-Gault) 109.1 91.3 BUN/Creatinine Ratio 13 (6-20) 9 (6-20) Glucose Level 135 mg/dL (70-99) 115 mg/dL (70-99) Calcium Level 8.6 mg/dL (8.5-10.1) 9.4 mg/dL (8.5-10.1) Magnesium Level 2.0 mg/dL (1.8-2.4) Total Bilirubin 0.3 mg/dL (0.2-1.0) 0.5 mg/dL (0.2-1.0) Aspartate Amino Transf (AST/SGOT) 31 U/L (15-37) 22 U/L (15-37) Alanine Aminotransferase (ALT/SGPT) 69 U/L (14-59) 63 U/L (14-59) Alkaline Phosphatase 98 U/L (46-116) 93 U/L (46-116) Total Protein 6.0 g/dL (6.4-8.2) 7.1 g/dL (6.4-8.2) Albumin 3.0 g/dL (3.4-5.0) 3.4 g/dL (3.4-5.0) Albumin/Globulin Ratio 1.0 (1.0-1.7) 0.9 (1.0-1.7) Medications Current Medications Multivitamins/ Minerals 10 ml/ Folic Acid 1 mg/ Thiamine HCl 100 mg/Dextrose/ Lactated Ringer's 1,011.2 ml @ 0 mls/hr 1X ONCE IV Last administered on at 21:30; Start 05/02/18 at 21:30; Stop 05/02/18 at 21:35; Status DC Thiamine HCl 200 mg STK-MED ONCE IV ; Start 05/02/18 at 21:27; Stop 05/02/18 at 21 :28; Status DC Folic Acid (FOLIC ACID SYRINGE for ER) 5 mg STK-MED ONCE IV ; Start 05/02/18 at 21:28; Stop 05/02/18 at 21:29; Status DC Folic Acid (FOLIC ACID SYRINGE for ER) 5 mg STK-MED ONCE IV ; Start 05/02/18 at 21:28; Stop 05/02/18 at 21:29; Status DC Multivitamins/ Minerals 10 ml/ Folic Acid 1 mg/ Thiamine HCl 100 mg/Lactated Ringer's 1,011.1 ml @ 1,000 mls/ hr DAILY IV ; Start 05/03/18 at 09:00; Status UNV Lactated Ringer's 1,000 ml @ 200 mls/hr Q5H IV Last administered on 05/04/18at 05:30; Start 05/02/18 at 23:30; Stop 05/05/18 at 14:26; Status DC Lactated Ringer's 1,000 ml @ 1,000 mls/hr 1X STAT IV Last administered on 05/02at 00:15; Start 05/02/18 at 23:39; Stop 05/03/18 at 00:38; Status DC Multivitamins/ Minerals 10 ml/ Folic Acid 1 mg/ Thiamine HCl 100 mg/Dextrose/ Lactated Ringer's 1,011.2 ml @ 1,000 mls/ hr DAILY IV Last administered on 11/11at 08:59; Start 05/03/18 at 09:00 Magnesium Sulfate 50 ml @ 25 mls/hr 1X ONCE IV Last administered on 05/03/18at 02:08; Start 05/03/18 at 01:15; Stop 05/03/18 at 03:14; Status DC Haloperidol Lactate (Haldol) 2 mg PRN Q6HRS PRN IVP AGITATION; Start 05/03/18 at 15:15; Stop 05/03/18 at 15:17; Status DC Haloperidol Lactate (Haldol) 2 mg PRN Q6HRS PRN IM AGITATION; Start 05/03/18 at 15:17; Stop 05/03/18 at 15:40; Status DC Lorazepam (Ativan) 0.5 mg PRN Q1HR PRN IV ANXIETY / AGITATION Last administered on 05/07/18at 03:39; Start 05/03/18 at 15:45 Amino Acids/ Glycerin/ Electrolytes 1,000 ml @ 80 mls/hr [id number] IV Last administered on 05/05/18at 04:32; Start 05/04/18 at 10:15; Stop 05/05/18 at 18:44 ; Status DC Magnesium Sulfate 50 ml @ 25 mls/hr 1X ONCE IV Last administered on 05/04/18at 11:41; Start 05/04/18 at 11:30; Stop 05/04/18 at 13:29; Status DC Metoclopramide HCl (Reglan Vial) 10 mg QIDACHS IV Last administered on at 10:20; Start 05/04/18 at 16:30 Hydralazine HCl (Apresoline) 20 mg PRN Q8HRS PRN IV ELEVATED BP, SEE COMMENTS Last administered on 05/06/18at 09:00; Start 05/04/18 at 12:45; Stop 05/06/18 at 09:17; Status DC Nicotine (Nicoderm Cq 21mg) 1 patch DAILY TD Last administered on 05/07/18at 10: 22; Start 05/05/18 at 12:45 Nicotine Polacrilex (Nicorette Gum) 2 mg PRN Q1HR PRN BC SMOKING CESSATION; Start 05/05/18 at 12:45 Calcium Carbonate/ Glycine (Tums) 500 mg PRN AFTMEALHC PRN PO INDIGESTION Last administered on 05/07/18at 02:00; Start 05/05/18 at 13:00 Clonidine HCl (Catapres) 0.1 mg Q6HRS PRN PO ELEVATED BP, SEE COMMENTS; Start 05/05/18 at 13:15 Chlordiazepoxide (Librium) 50 mg PRN Q4HRS PRN PO WITHDRAWAL Last administered on 05/06/18at 05:06; Start 05/05/18 at 13:15 Chlordiazepoxide (Librium) 100 mg PRN Q4HRS PRN PO WITHDRAWAL Last administered on 05/05/18at 13:28; Start 05/05/18 at 13:15 Bisacodyl (Dulcolax Tab) 10 mg PRN DAILY PRN PO CONSTIPATION; Start 05/05/18 at 13:15 Magnesium Hydroxide (Milk Of Magnesia) 2,400 mg PRN DAILY PRN PO CONSTIPATION Last administered on 05/05/18at 13:28; Start 05/05/18 at 13:15 Polyethylene Glycol (miraLAX) 17 gm DAILY PO Last administered on 05/06/18at 08: 35; Start 05/05/18 at 13:15 Ondansetron HCl (Zofran) 4 mg PRN Q6HRS PRN IV NAUSEA/VOMITING; Start 05/06/18 at 08:45; Stop 05/06/18 at 08:48; Status DC Ondansetron HCl (Zofran) 4 mg PRN Q6HRS PRN IV NAUSEA/VOMITING Last administered on 05/07/18at 10:20; Start 05/06/18 at 09:00 Pantoprazole Sodium 80 mg/ Sodium Chloride 100 ml @ 10 mls/hr Q10H IV ; Start 05/05/18 at 10:00; Stop 05/06/18 at 11:31; Status DC Hydralazine HCl (Apresoline) 20 mg TID IV Last administered on 05/06/18at 20:49 ; Start 05/06/18 at 14:00 Amino Acids/ Glycerin/ Electrolytes 1,000 ml @ 80 mls/hr [id number] IV ; Start 11/11 at 09:10; Stop 05/06/18 at 09:19; Status DC Fat Emulsion Intravenous 250 ml @ 21 mls/hr Q24H IV ; Start 05/06/18 at 22:00; Stop 05/06/18 at 22:00; Status DC Pantoprazole Sodium (Protonix Vial) 40 mg BID IVP ; Start 05/06/18 at 21:00; Stop 05/06/18 at 21:00; Status DC Pantoprazole Sodium (Protonix Vial) 40 mg BID IVP Last administered on at 10:20; Start 05/06/18 at 12:15 Active Scripts Active Potassium Chloride 10 Meq Tablet.er 10 Meq PO DAILY 5 Days Bactrim Ds Tablet (Sulfamethoxazole/Trimethoprim) 1 Each Tablet 1 Tab PO BID Zofran (Ondansetron Hcl) 4 Mg Tablet 1 Tab PO PRN Q6HRS PRN Vitals/I & O Vital Sign - Last 24 Hours 05/06/18 05/06/18 05/06/18 05/06/18 11:28 13:13 16:53 20:00 Pulse 90 90 97 Resp 18 B/P (MAP) 150/90 (110) 140/91 (107) 117/70 (86) Pulse Ox 96 O2 Delivery Room Air Room Air Room Air 05/06/18 05/06/18 05/07/18 05/07/18 20:41 20:49 00:00 04:00 Temp 97.7 Pulse 82 82 116 94 Resp 18 18 18 B/P (MAP) 164/95 (118) 164/95 141/75 (97) 159/84 (109) Pulse Ox 98 97 93 O2 Delivery Room Air Room Air Room Air Intake and Output 05/06/18 05/06/18 05/07/18 15:00 23:00 07:00 Intake Total 0 ml 0 ml 1011.2 ml Output Total 450 ml 400 ml Balance -450 ml -400 ml 1011.2 ml YOLANDA OSULLIVAN [employer] May 07, 2018 10:38
[2018-05-07 10:51] VITALS: BP 168/91
--- NOTE | 2018-05-07 19:59 | PN ---
DATE: 05/06/2018 SUBJECTIVE: The patient denies any new neurological complaints; however, she has been suffering from abdominal pain, nausea and vomiting. She is more alert and oriented this morning. OBJECTIVE: GENERAL: Well-developed, well-nourished female, not in acute distress. VITAL SIGNS: Blood pressure 117/70, respiratory rate 18, pulse is 97 and regular, temperature 97.7, oxygen saturation 96% on room air. HEENT: Normocephalic, atraumatic, otherwise unremarkable. NECK: Supple. Negative for carotid bruit, lymphadenopathy or thyromegaly. LUNGS: Clear to A and P. CARDIOVASCULAR: Regular rate and rhythm, normal S1, S2. ABDOMEN: Soft, but tender, especially in the epigastric area. No palpable mass or organomegaly. EXTREMITIES: Negative for cyanosis, clubbing or pitting edema. NEUROLOGIC: The patient is more alert and oriented to herself and place. She follows 1-step commands. She is drowsy. Speech is more fluent. There is no language dysfunction. Memory, judgment, and abstract thinking are fair. The patient denies hallucination or delusion. Cranial nerves are intact. No focal motor or sensory deficit. Deep tendon reflexes are symmetric and hypoactive with absent Achilles responses. Gait not tested. Abdominal CT scan revealed moderate fecal impaction, otherwise unremarkable. IMPRESSION: 1. Acute encephalopathy induced by overdose of Seroquel and polysubstance, which has been slowly improved over the last 24 hours. 2. Abdominal pain with nausea and vomiting with negative abdominal CT scan. 3. Longstanding history of polysubstance abuse. 4. Multiple medical and psychiatric problems include some ____ disorders, anxiety and schizoaffective disorders, complicated with psychosis. RECOMMENDATIONS: Continue with current management initiated by Dr. Delarosa and Dr. Asencio. M Casa VIZCAINO MD DR: PAMELA/agatha JOB#: [id number] / [id number]
--- NOTE | 2018-05-07 20:10 | PN ---
DATE: SUBJECTIVE: The patient continues to complain of epigastric pain and "heartburn." She stated she has had pyloric infections a year ago and she had similar symptoms today. OBJECTIVE: GENERAL: Well-developed, well-nourished white female, not in acute distress. VITAL SIGNS: Blood pressure 159/84, respiratory rate 18, pulse is 94 and regular, temperature is 97.7, oxygen saturation 93% on room air. HEENT: Normocephalic, atraumatic, otherwise unremarkable. NECK: Supple. Negative for carotid bruit, lymphadenopathy or thyromegaly. LUNGS: Clear to A and P. CARDIOVASCULAR: Regular rate and rhythm, normal S1, S2. There is no S3, S4 or murmur. ABDOMEN: Soft, but there is epigastric tenderness. There is no palpable mass or organomegaly. EXTREMITIES: Negative for cyanosis, clubbing or pitting edema. NEUROLOGICAL EXAM: Mental Status: The patient is alert to herself and place. She is still disoriented to time. Speech is fluent. There is no language dysfunction. Memory, judgment, and abstract thinking fair. The patient denies hallucination or delusion. Cranial nerves are intact. No focal motor or sensory deficit. Deep tendon reflexes were symmetric and active without pathology responses. Gait: The patient was able to go to bathroom, but with some dizziness. DIAGNOSTIC DATA: Echocardiogram revealed normal systolic function of the left ventricle with ejection fraction of 65%, otherwise unremarkable. IMPRESSION: 1. Acute encephalopathy induced by overdose of Seroquel and possible polysubstances at the same time. 2. Multiple psychiatric problems including suicidal ideation, bipolar disorders, schizoaffective disorders and anxiety disorders. 3. Epigastric pain with history of pyloric infections, rule out gastritis versus peptic ulcer disease. 4. Hypertension. RECOMMENDATIONS: Continue with current management initiated by Dr. Andrews and Dr. Asencio. The patient is making slowly good progress in terms of mental status. M Casa VIZCAINO MD DR: PAMELA/agatha JOB#: [id number] / [id number]
--- NOTE | 2018-05-07 22:28 | PN ---
DATE: 05/06/2018 This late entry 05/06/2018 covers elements not covered in my initial note 05/06/2018. SUBJECTIVE: I met with the patient in ICU bed 2. Discussed with nursing staff. Overall, the patient is much more coherent, awake, but remains anxious, restless, frequently out of bed, frequently wanting something for anxiety. Nursing staff are addressing this. Medically, I have been informed that she needs another 24 hours for stabilization following which the [facility] will be asked to screen her for inpatient psychiatric stabilization. I do believe she needs inpatient treatment from stabilization of her bipolar disorder given the very significant overdose and circumstances and polysubstance abuse prompting this admission. She has vague somatic symptoms. No CV, , pulmonary, eye system symptoms on review. MENTAL STATUS EXAM: Oriented to herself and situation. Speech coherent, has some latency. Abstraction fair, computation impaired, language function intact. Mood and affect remain somewhat anxious, labile. LABORATORY DATA: Reviewed. IMPRESSION: Bipolar 1 disorder, mixed with psychotic features, in partial remission; anxiety disorder, unspecified. Rest unchanged. PLAN: Continue current psychotropics and once she is medically stable, defer to the [facility] to help with inpatient psychiatric admission for stabilization of her bipolar disorder and initiation of treatment for her polysubstance abuse prior to outpatient treatment. HAIDER RODRIGUEZ MD DR: KRISTIAN/agatha JOB#: [id number] / [id number]
== END 2018-05-07 11:21 | DRG 917 ==
LOC: ER 21:08 → ICU 21:20 → 1 SOUTH 05-07 09:55
PROVIDERS: ADMIT Family Medicine; ATTEND Family Medicine
DX: T43.592A Poisoning by other antipsychotics and neuroleptics, intentional self-harm, initial encounter (principal); G92 Toxic encephalopathy; E43 Unspecified severe protein-calorie malnutrition; F31.64 Bipolar disorder, current episode mixed, severe, with psychotic features; F15.20 Other stimulant dependence, uncomplicated; F05 Delirium due to known physiological condition; F41.9 Anxiety disorder, unspecified; F63.9 Impulse disorder, unspecified; I45.81 Long QT syndrome; D72.829 Elevated white blood cell count, unspecified; F17.210 Nicotine dependence, cigarettes, uncomplicated; I10 Essential (primary) hypertension; E87.6 Hypokalemia; F19.10 Other psychoactive substance abuse, uncomplicated; E86.0 Dehydration; Z90.89 Acquired absence of other organs; Z98.51 Tubal ligation status; Z90.49 Acquired absence of other specified parts of digestive tract; Z71.51 Drug abuse counseling and surveillance of drug abuser; Z71.6 Tobacco abuse counseling; Z68.23 Body mass index [BMI] 23.0-23.9, adult
CPT/HCPCS: 36415; 36600; 51701; 70450; 71045; 74150; 80048; 80053; 80076; 80178; 80307; 81001; 82140; 82803; 83605; 83735; 84702; 85007; 85025; 85610; 85730; 87641; 93005; 93306; 96365; 99292; C9113; G0480; G6039; J0360; J2060; J2405; J2765; J3475; J3490; J7120; 82003; 99291-25; G0479

== ENCOUNTER → 2018-05-20 | Outpatient (CLI) | payer MEDICARE ==
[2018-05-07 10:51] VITALS: BP 168/91
--- NOTE | 2018-05-20 15:58 | RAD ---
Pelvic ultrasound History: Abnormal CT, pelvic discomfort Comparison: CT abdomen pelvis May 04, 2018. Technique: Transabdominal ultrasound was performed for initial evaluation. Endovaginal imaging was performed for better visualization of gynecologic structures. TRANSABDOMINAL IMAGING Findings: Uterus and ovaries are not seen secondary to lack of distention of the urinary bladder. ENDOVAGINAL IMAGING Findings: The uterus measures 7.6 cm in length. Uterine fundus demonstrates intramural leiomyoma measuring 2.1 cm. Additional leiomyoma is seen measuring 1.5 cm. The endometrium measures 1.0 mm. Minimal cystic lesion is seen in the endometrial canal measuring 2 mm. Right ovary measures 2.6 x 2.1 x 2.4 cm and demonstrates a few small follicles. The left ovary measures 2.1 x 1.3 x 1.8 cm and is unremarkable. No adnexal masses are identified. No significant free fluid is identified within the pelvis. Both ovaries demonstrate normal vascular flow upon Doppler interrogation and are without evidence of torsion. Impression: 1. Uterine leiomyomata. 2. Minimal cystic lesion involving the endometrium. This could represent small nonspecific endometrial cyst. Recommend correlation with beta hCG levels regarding remote possibility of exceedingly early intrauterine . Electronically signed by: Darshan Mahoney MD (05/20/2018 3:54 PM) [place] [id number]
== END | disposition home or self-care (01) ==
LOC: US 13:05
PROVIDERS: ATTEND Family Medicine
DX: D25.9 Leiomyoma of uterus, unspecified (principal); K29.60 Other gastritis without bleeding; E05.90 Thyrotoxicosis, unspecified without thyrotoxic crisis or storm; I10 Essential (primary) hypertension; E87.6 Hypokalemia
CPT/HCPCS: 76830

== ENCOUNTER 2018-11-04 18:41 | Inpatient (IN) | payer MEDICARE ==
[~2018-11-04] VITALS: Ht 165.1 cm; Wt 63.6 kg
--- NOTE | 2018-11-04 19:20 | PHYS DOC ---
Past History Past Medical History: Other Past Surgical History: Other Alcohol Use: None Drug Use: Heroin, Methamphetamine Adult General Chief Complaint Chief Complaint: SUICDAL IDEATION HPI HPI 43-year-old female presents with suicidal ideation and drug use. The patient has been long time and it of drugs. She has been using heroin last year and a half. The patient wants to get off drugs, but her does not. She had not done any drugs for a few days. He came home today and management that they do drugs together. She was reluctant but agreed. She took a "button" of heroin today. She now is very remorseful. She states that she has been thinking about suicide a lot lately because she has been unable to get clean. Her plan is to take a large dose of heroin or take a large dose of pills of her antidepressant. She states she is on fluoxetine and lithium. She's been out of her lithium for 5 days. She has had previous suicide attempts. Most recent was 6 months ago. She has been in inpatient care previously. She denies fever or chills. Review of Systems Review of Systems Constitutional: Denies fever or chills [] Eyes: Denies change in visual acuity, redness, or eye pain [] HENT: Denies nasal congestion or sore throat [] Respiratory: Denies cough or shortness of breath [] Cardiovascular: No additional information not addressed in HPI [] GI: Denies abdominal pain, nausea, vomiting, bloody stools or diarrhea [] : Denies dysuria or hematuria [] Musculoskeletal: Denies back pain or joint pain [] Integument: Denies rash or skin lesions [] Neurologic: Denies headache, focal weakness or sensory changes [] Endocrine: Denies polyuria or polydipsia [] All other systems were reviewed and found to be within normal limits, except as documented in this note. Allergies Allergies Allergies Coded Allergies Type Severity Reaction Last Updated Verified No Known Drug Allergies 04/16/18 No Physical Exam Physical Exam Constitutional: Well developed, well nourished, no acute distress, non-toxic appearance. [] HENT: Normocephalic, atraumatic, bilateral external ears normal, oropharynx moist, no oral exudates, nose normal. [] Eyes: PERRLA, EOMI, conjunctiva normal, no discharge. [] Neck: Normal range of motion, no tenderness, supple, no stridor. [] Cardiovascular:Heart rate regular rhythm, no murmur [] Lungs & Thorax: Bilateral breath sounds clear to auscultation [] Abdomen: Bowel sounds normal, soft, no tenderness, no masses, no pulsatile masses. [] Skin: Warm, dry, no erythema, no rash. [] Back: No tenderness, no CVA tenderness. [] Extremities: No tenderness, no cyanosis, no clubbing, ROM intact, no edema. [] Neurologic: Alert and oriented X 3, normal motor function, normal sensory function, no focal deficits noted. [] Psychologic: Affect tearful, judgement impaired, mood depressed. [] Current Patient Data Vital Signs Vital Signs Date Time Temp Pulse Resp B/P (MAP) Pulse Ox O2 Delivery O2 Flow Rate FiO2 11/04/18 18:56 98.1 80 22 99 Room Air EKG EKG [] Radiology/Procedures Radiology/Procedures [] Course & Med Decision Making Course & Med Decision Making Pertinent Labs and Imaging studies reviewed. (See chart for details) The patient's labs are unremarkable. Her troponin was positive for opiates. We' re unable to do a complete psychiatric this time to drug use. I will admit her to the hospital. I discussed the patient with Dr. Andrews and he has accepted the patient for admission. [] Dragon Disclaimer Dragon Disclaimer This electronic medical record was generated, in whole or in part, using a voice recognition dictation system. Departure Departure: Referrals: DAVID ANDREWS MD (PCP) ABDIEL RIGGINS DO Nov 04, 2018 19:20
[2018-11-04 19:55] LABS: BASO # 0.1 x10^3/uL (0.0-0.2); BASO % 1 % (0-3); EOS # 0.2 x10^3/uL (0.0-0.7); EOS % 2 % (0-3); HEMATOCRIT 40.7 % (36.0-47.0); HEMOGLOBIN 13.4 g/dL (12.0-15.5); LYMPH # 2.5 x10^3/uL (1.0-4.8); LYMPH % 29 % (24-48); MEAN CORPUSCULAR HEMOGLOBIN 29 pg (25-35); MEAN CORPUSCULAR HGB CONC 33 g/dL (31-37); MEAN CORPUSCULAR VOLUME 87 fL (79-100); MONO # 0.9 x10^3/uL (0.0-1.1); MONO % 11 % (0-9); NEUT # 4.8 x10^3uL (1.8-7.7); NEUT % 57 % (31-73); PLATELET COUNT 407 x10^3/uL (140-400); RED BLOOD COUNT 4.69 x10^6/uL (3.50-5.40); WHITE BLOOD COUNT 8.4 x10^3/uL (4.0-11.0)
[2018-11-04 20:01] LABS: ALBUMIN 3.3 g/dL (3.4-5.0); ALBUMIN/GLOBULIN RATIO 0.8 (1.0-1.7); CALCIUM 8.8 mg/dL (8.5-10.1); CREATININE 0.7 mg/dL (0.6-1.0); GFR 90.9; POTASSIUM 3.8 mmol/L (3.5-5.1); TOTAL BILIRUBIN 0.2 mg/dL (0.2-1.0); TOTAL PROTEIN 7.2 g/dL (6.4-8.2)
[2018-11-04 20:18] LABS: AMPHETAMINE/METHAMPHETAMINE NEG (NEG); BARBITURATES NEG (NEG); BENZODIAZEPINES NEG (NEG); CANNABINOIDS NEG (NEG); COCAINE NEG (NEG); METHADONE NEG (NEG); OPIATES POS (NEG); PHENCYCLIDINE NEG (NEG)
[2018-11-04 20:43] LABS: BACTERIA,URINE FEW /HPF (0-FEW); BILIRUBIN,URINE NEG (NEG); CLARITY,URINE CLEAR; COLOR,URINE YELLOW; GLUCOSE,URINE >=1000 mg/dL (NEG); NITRITE,URINE NEG (NEG); SQUAMOUS EPITHELIAL CELL,UR MOD /LPF; UROBILINOGEN,URINE 0.2 mg/dL (0.2 mg/dL)
[2018-11-04] MEDS ORDERED: IV NORMAL SALINE 1,000ML 1,000 ML IV ONE (20:45)
[2018-11-04 21:30] VITALS: BP 141/90
[2018-11-04] MEDS ORDERED: ONDANSETRON PF 4 MG/2 ML VIAL. IV PRN (21:30)
[2018-11-04] MEDS ORDERED: LOXA25CA PO (21:49)
[2018-11-04] MEDS ORDERED: LITH300T3 PO (21:50)
[2018-11-04] MEDS ORDERED: OMEP20TA8 PO (21:52)
[2018-11-04 23:10] VITALS: BP 113/73
[2018-11-05 06:05] VITALS: BP 125/77
[2018-11-05] MEDS ORDERED: NICOTINE 21MG PATCH. TD SCH (09:00)
--- NOTE | 2018-11-05 15:02 | HP ---
ADMIT DATE: 11/04/2018 HISTORY OF PRESENT ILLNESS: A 43-year-old female who came in with suicidal ideation and regular drug use. Came in through the Emergency Room. The patient has been using heroin over the last year and a half. The patient ____. She has not done any drugs for a few days. The patient otherwise as noted has had suicidal ideation as she has come off these heroine. She has been on Prozac and lithium in the past. She has been out of her lithium for 5 days. She has had previous suicide attempts, most recent approximately 6 months ago. Other than that, the patient denies any hallucinations or chest pain. PAST MEDICAL HISTORY: Emphysema, heartburn, diabetes, schizophrenia, bipolar disease, depression, substance abuse and tobacco abuse. The patient had ____ problems. ALLERGIES: No known drug allergies. CODE STATUS: The patient is a full code. SOCIAL HISTORY: The patient continues to smoke and use narcotics such as heroin and methamphetamine. REVIEW OF SYSTEMS: As stated in the HPI. FAMILY HISTORY: Unremarkable. MEDICATIONS: Loxapine 25 mg b.i.d., lithium 300 b.i.d., Prilosec 20 mg a day. PHYSICAL EXAMINATION: GENERAL: Suicidal ideation and very hysterical White female looking thinner and older than her stated age of 43. VITAL SIGNS: Blood pressure that of 125/77, respiration 18, pulse 62, afebrile. The patient is alert, confused. HEENT: The patient's head was atraumatic, normocephalic. Eyes: PERRLA without jaundice. Mouth and throat were normal. Some constriction of the pupils. LUNGS: Diminished. CARDIOVASCULAR: Regular sinus rhythm. ABDOMEN: Soft, nontender, scaphoid. EXTREMITIES: No clubbing, cyanosis or edema. SKIN: Intact. IMPRESSION: Suicidal ideation with plan to commit suicide, opiate abuse with use of heroin, multiple psychiatric issues as noted. Tox screen shows opiates as well as low-dose of lithium. In any case, the patient was admitted. She left against medical advice to seek psychiatric evaluation hopefully at the [facility]. DAVID TANNER MD DR: HAROON/agatha JOB#: [id number] / [id number]
== END 2018-11-05 10:44 | disposition left against medical advice (07) | DRG 880 ==
LOC: ER 18:41 → EEVIPCON 18:41 → 1 SOUTH 21:15
PROVIDERS: ADMIT Family Medicine; ATTEND Family Medicine
DX: R45.851 Suicidal ideations (principal); E11.9 Type 2 diabetes mellitus without complications; F11.90 Opioid use, unspecified, uncomplicated; Z53.21 Procedure and treatment not carried out due to patient leaving prior to being seen by health care provider; F17.210 Nicotine dependence, cigarettes, uncomplicated; F15.90 Other stimulant use, unspecified, uncomplicated; F20.9 Schizophrenia, unspecified; F31.9 Bipolar disorder, unspecified; Z91.5 Personal history of self-harm
CPT/HCPCS: 36415; 80053; 80178; 80307; 81001; 85025; G0480; 99285-25; J7030

== ENCOUNTER 2019-02-20 14:09 | Inpatient (IN) | payer MEDICARE ==
[~2019-02-20] VITALS: Ht 165.1 cm; Wt 49.2 kg
[2019-02-20] VITALS (8 sets, daily range): BP systolic 93–145; BP diastolic 64–98
[~2019-02-20 14:09] MED LIST changes: +LITH300T3 PO; +LOXA25CA PO; +OMEP20TA8 PO
--- NOTE | 2019-02-20 14:41 | PHYS DOC ---
Past History Past Medical History: Anxiety, Bipolar, Schizophrenia Past Surgical History: Other Alcohol Use: Occasionally Drug Use: Heroin, Methamphetamine Adult General Chief Complaint Chief Complaint: MULTIPLE COMPLAINTS [facility] HPI 43-year-old female presents with hallucinations. The patient is accompanied by her sister. The patient showed up at her sister's house today and states that the voices told her to cut herself. She has a laceration of the left upper inner thigh. The patient does not talk to me very much. She does answer more when her sister asks questions rather than myself. She denies suicidal ideation. During my interview she did speak couple times a somewhat was not there. Patient has a long history of mental health disorders as well as drug use. Her sister states that she has been off of medications for a month and has been doing meth. I also spoke with the patient's ex- who told me the patient has heard voices in the past before. She has caused extensive self-harm in the past. The voices also told her to hurt other people. She has been admitted to inpatient facility previously. Review of Systems Review of Systems Constitutional: Denies fever or chills [] Eyes: Denies change in visual acuity, redness, or eye pain [] HENT: Denies nasal congestion or sore throat [] Respiratory: Denies cough or shortness of breath [] Cardiovascular: No additional information not addressed in HPI [] GI: Denies abdominal pain, nausea, vomiting, bloody stools or diarrhea [] : Denies dysuria or hematuria [] Musculoskeletal: Denies back pain or joint pain [] Integument: Left leg laceration [] Neurologic: Denies headache, focal weakness or sensory changes [] Endocrine: Denies polyuria or polydipsia [] All other systems were reviewed and found to be within normal limits, except as documented in this note. Allergies Allergies Allergies Coded Allergies Type Severity Reaction Last Updated Verified No Known Drug Allergies 04/16/18 No Physical Exam Physical Exam Constitutional: Well developed, well nourished, no acute distress, non-toxic appearance. [] HENT: Normocephalic, atraumatic, bilateral external ears normal, oropharynx moist, no oral exudates, nose normal. [] Eyes: PERRLA, EOMI, conjunctiva normal, no discharge. [] Neck: Normal range of motion, no tenderness, supple, no stridor. [] Cardiovascular:Heart rate regular rhythm, no murmur [] Lungs & Thorax: Bilateral breath sounds clear to auscultation [] Abdomen: Bowel sounds normal, soft, no tenderness, no masses, no pulsatile masses. [] Skin: Multiple bruises on the patient's left arm. Prtially healed 14 cm laceration of the left upper thigh. 6 cm of which penetrates the dermis and is into the epidermis. Bleeding is controlled.[] Back: No tenderness, no CVA tenderness. [] Extremities: No tenderness, no cyanosis, no clubbing, ROM intact, no edema. [] Neurologic: Alert and oriented X 3, normal motor function, normal sensory function, no focal deficits noted. [] Psychologic: Affect flat, judgement impaired, mood normal. Hallucinations[] Current Patient Data Vital Signs Vital Signs Date Time Temp Pulse Resp B/P (MAP) Pulse Ox O2 Delivery O2 Flow Rate FiO2 02/20/19 14:31 98.1 77 22 100 Room Air EKG EKG [] Radiology/Procedures Radiology/Procedures [] Course & Med Decision Making Course & Med Decision Making Pertinent Labs and Imaging studies reviewed. (See chart for details) The patient has a critical potassium of 2.6. We will replace this by IV. The patient's laceration or he has dried borders and is well approximated. We will rinsed area, but I do not believe any further closure is a good idea as it is likely to trap bacteria. Discussed the patient with Dr. Lagunas and he has accepted the patient for admission. [] Dragon Disclaimer Dragon Disclaimer This electronic medical record was generated, in whole or in part, using a voice recognition dictation system. Departure Departure: Impression: Primary Impression: Hallucinations Additional Impression: Hypokalemia Disposition: ADMITTED INPATIENT Condition: STABLE Referrals: DAVID TANNER MD (PCP) Problem Qualifiers ABDIEL RIGGINS DO Feb 20, 2019 14:41
[2019-02-20 14:42] LABS: BASO # 0.1 x10^3/uL (0.0-0.2); BASO % 1 % (0-3); EOS # 0.1 x10^3/uL (0.0-0.7); EOS % 1 % (0-3); HEMATOCRIT 44.7 % (36.0-47.0); LYMPH # 2.5 x10^3/uL (1.0-4.8); LYMPH % 28 % (24-48); MEAN CORPUSCULAR HEMOGLOBIN 28 pg (25-35); MEAN CORPUSCULAR HGB CONC 34 g/dL (31-37); MEAN CORPUSCULAR VOLUME 84 fL (79-100); MONO # 0.8 x10^3/uL (0.0-1.1); MONO % 9 % (0-9); NEUT # 5.4 x10^3uL (1.8-7.7); NEUT % 61 % (31-73); PLATELET COUNT 433 x10^3/uL (140-400); RED BLOOD COUNT 5.34 x10^6/uL (3.50-5.40); WHITE BLOOD COUNT 8.8 x10^3/uL (4.0-11.0)
[2019-02-20 14:56] LABS: ALBUMIN 3.7 g/dL (3.4-5.0); ALBUMIN/GLOBULIN RATIO 0.9 (1.0-1.7); CALCIUM 9.7 mg/dL (8.5-10.1); CREATININE 0.8 mg/dL (0.6-1.0); GFR 77.9; TOTAL BILIRUBIN 0.8 mg/dL (0.2-1.0); TOTAL PROTEIN 7.7 g/dL (6.4-8.2)
[2019-02-20 14:58] LABS: POTASSIUM 2.6 mmol/L (3.5-5.1)
[2019-02-20] MEDS ORDERED: POTASSIUM CL 40MEQ IN 0.9%NACL 1,000 ML IV ONE (15:00)
[2019-02-20] MEDS ORDERED: ONDANSETRON PF 4 MG/2 ML VIAL. IV PRN (16:15)
[2019-02-20] MEDS: POTASSIUM CHLORIDE 20 MEQ TABLET.ER. PO SCH ×3 (17:54→20:32)
--- NOTE | 2019-02-20 18:11 | HP ---
ADMIT DATE: 02/20/2019 HISTORY OF PRESENT ILLNESS: The patient is a 43-year-old female patient, who apparently came to the Emergency Room with hallucination. She was accompanied by her sister. The patient showed up at her sister's house today and stated the voices told her to cut herself. She has a laceration of her left upper inner thigh. She was not much verbal and did not answer many questions of the ER physician; however, when I asked her, she stated that this is a prank that went wrong, although she could not elaborate more about it. She denied any suicidal ideation. She apparently has a long history of mental health disorders as well as drug abuse. Her sister stated that she has been off of all her medication for a month and has been doing methamphetamine. Her ex- confirmed that she has had heard voices before and she did cause extensive self-harm in the past. Apparently, the voices also told her to hurt other people. She has been admitted to inpatient facilities previously and she was extensively investigated in the Emergency Room and her lab work showed her potassium was extremely low at 2.6. Other than that, there is no other abnormality. PAST MEDICAL HISTORY: She has a history of bipolar disorder as well as schizophrenia and also episodes of mental confusion as well as an overdose. PAST SURGICAL HISTORY: Significant for cholecystectomy, tonsillectomy and tubal ligation. FAMILY HISTORY: Unremarkable. SOCIAL HISTORY: She is a smoker. She does not drink alcohol, but abuses methamphetamine and heroin. She has had prior episodes of suicidal ideation and suicidal attempt. ALLERGIES: She has no known drug allergies. MEDICATIONS: She is currently on following medications: She is on Loxapine 25 mg p.o. b.i.d., lithium carbonate 300 mg twice a day and omeprazole 20 mg once a day. REVIEW OF SYSTEMS: As per history of present illness. PHYSICAL EXAMINATION GENERAL: When I examined her, she was somewhat cachectic, but no jaundice, cyanosis, or thyromegaly. No jugular venous distension. No limb edema. VITAL SIGNS: Her heart rate was 72, blood pressure was 125/96, temperature was 98.1, respiratory rate was 22, and oxygen saturation was 100% on room air. HEAD, EYES, EARS, NOSE AND THROAT: Showed normocephalic, atraumatic. NECK: Supple. HEART: Showed normal first and second heart sounds. No gallop, rub or murmur. CHEST: Clear to auscultation. No crepitation or rhonchi. ABDOMEN: Scaphoid, soft, nontender. NEUROLOGIC: She was sleepy, but arousable. All cranial nerves intact. EXTREMITIES: She moves extremities without difficulty. She does have a laceration on the medial aspect of the left thigh and is very superficial. LABORATORY DATA: On arrival showed a white cell count of 8800, hemoglobin 15, hematocrit 45, MCV 84 and platelet count of 433,000. Serum sodium 141, potassium 2.6, chloride 105, bicarbonate 23, anion gap of 13, BUN 7, creatinine 0.8, estimated GFR was 78 mL per minute. Her glucose was 97, calcium was 9.7. Total bilirubin, AST, ALT, alkaline phosphatase were normal. Total protein was 7.7, albumin was 3.7. ASSESSMENT AND PLAN: She was basically admitted with hallucination, questionable suicidal attempt by inflicting injury to herself. Hypokalemia, we will replenish her potassium. We will consult Dr. Asencio to evaluate the patient and she probably needs an inpatient psychiatric stabilization. ERIC ALMENDAREZ MD DR: GUERO/agatha JOB#: [id number] / [id number]
--- NOTE | 2019-02-20 19:08 | EKG ---
[address] [address] Test Date: 2019-02-20 Test Time: 15:54:42 Pat Name: SHIMON VERA Department: Room: ICU03 1 Gender: F Director Workers Compensation: : 1975 Requested By: ABDIEL RIGGINS Order Number: [id number] Reading MD: Nam Hicks MD Measurements Intervals [place] Rate: 99 P: NE: QRS: 77 QRSD: 96 T: 67 QT: 396 QTc: 514 Interpretive Statements SR NON-SPECIFIC ST/T CHANGES Electronically Signed On 02-23-2019 14:18:42 CDT by Nam Hicks MD
[2019-02-20] MEDS: LORazepam 1 MG TABLET PO PRN (20:32)
[2019-02-20 21:43] LABS: CALCIUM 9.2 mg/dL (8.5-10.1); CREATININE 0.7 mg/dL (0.6-1.0); GFR 90.9
[2019-02-20] MEDS ORDERED: MORPHINE SULFATE 4 MG/ML DISP.SYRIN. IV PRN (22:15)
[2019-02-21] VITALS (15 sets, daily range): BP systolic 107–149; BP diastolic 52–91
[2019-02-21] MEDS: HALOPERIDOL LACT 5 MG/ML VIAL. IVP PRN ×2 (00:48→19:16)
[2019-02-21 07:25] LABS: ALBUMIN/GLOBULIN RATIO 0.9 (1.0-1.7); CALCIUM 8.7 mg/dL (8.5-10.1); CREATININE 0.6 mg/dL (0.6-1.0); GFR 108.6; MAGNESIUM 2.2 mg/dL (1.8-2.4); POTASSIUM 4.5 mmol/L (3.5-5.1); TOTAL BILIRUBIN 0.3 mg/dL (0.2-1.0); TOTAL PROTEIN 6.3 g/dL (6.4-8.2)
[2019-02-21] MEDS: PANTOPRAZOLE IV 40 MG VIAL. IVP SCH (15:30)
[2019-02-21] MEDS: NICOTINE 21MG PATCH. TD SCH (18:36)
[2019-02-21] MEDS: diphenhydrAMINE 50 MG/ML VIAL IVP PRN (19:16)
[2019-02-22] VITALS (7 sets, daily range): BP systolic 102–131; BP diastolic 62–83
[2019-02-22] MEDS: HALOPERIDOL LACT 5 MG/ML VIAL. IVP PRN ×3 (00:20→22:17)
[2019-02-22] MEDS: diphenhydrAMINE 50 MG/ML VIAL IVP PRN ×2 (03:37→17:37)
[2019-02-22 06:53] LABS: HEMATOCRIT 42.5 % (36.0-47.0); HEMOGLOBIN 13.7 g/dL (12.0-15.5); RED BLOOD COUNT 4.93 x10^6/uL (3.50-5.40); WHITE BLOOD COUNT 11.2 x10^3/uL (4.0-11.0)
[2019-02-22 07:05] LABS: ALBUMIN/GLOBULIN RATIO 0.8 (1.0-1.7); CREATININE 0.6 mg/dL (0.6-1.0); GFR 108.6; POTASSIUM 3.9 mmol/L (3.5-5.1); TOTAL BILIRUBIN 0.2 mg/dL (0.2-1.0); TOTAL PROTEIN 6.8 g/dL (6.4-8.2)
[2019-02-22] MEDS: PANTOPRAZOLE IV 40 MG VIAL. IVP SCH (07:38)
[2019-02-22] MEDS: NICOTINE 21MG PATCH. TD SCH (10:12)
[2019-02-22] MEDS: LITHIUM CARBONATE 300 MG TABLET PO SCH ×2 (11:48→20:42)
--- NOTE | 2019-02-22 18:09 | PN ---
DATE: 02/22/2019 SUBJECTIVE: The patient is resting flat, sleeping comfortably, in no apparent distress. She is here on involuntary hold. Although, we have not had any marine photographer signed orders. She is still here and treating for her hypokalemia. She is on Ativan, Haldol and apparently has been doing well. PHYSICAL EXAMINATION: GENERAL: When I examined her, she looked well and was clearly in no apparent respiratory distress. No pallor, jaundice, cyanosis, or thyromegaly. No jugular venous distension. No limb edema. VITAL SIGNS: Her heart rate was 71, blood pressure was 127/83, temperature was 97.6, respiratory rate was 14 and oxygen saturation was 98% on room air. The rest of clinical examination is stable, has not changed. Her intake and output are incompletely recorded. LABORATORY DATA: Showed her white cell count was slightly high at 11,200, hemoglobin 13.7, hematocrit 42, MCV 86 and platelet count of 189,000. Her chemistry showed a serum sodium 140, potassium 3.9, chloride 107, bicarbonate 23, anion gap of 10, BUN 11, creatinine was 0.6, estimated GFR was 108, glucose was 98, calcium was 9. Total bilirubin, AST, ALT, alkaline phosphatase were normal. Total protein was 6.8, albumin 3. Her nasal screen for MRSA with PCR was negative. ASSESSMENT: This is a 43-year-old female patient, who came in with suicidal ideation, self-inflicted wounds in her medial aspect of left thigh. She has apparently schizophrenia voices, according to her sister told her to inflict that laceration, has hallucination and also hypokalemia that has improved. PLAN: We are trying to hold her in this unit to look at the marine photographer to sign the involuntary order. ERIC ALMENDAREZ MD DR: GUERO/agatha JOB#: [id number] / [id number]
[2019-02-22] MEDS ORDERED: NICOTINE POLACRILEX GUM 2 MG GUM. BC PRN (19:15)
[2019-02-22] MEDS ORDERED: NICOTINE 21MG PATCH. TD ONE (19:30)
[2019-02-22 20:10] LABS: BARBITURATES NEG (NEG); BENZODIAZEPINES NEG (NEG); CANNABINOIDS NEG (NEG); COCAINE NEG (NEG); METHADONE NEG (NEG); OPIATES NEG (NEG); PHENCYCLIDINE NEG (NEG)
[2019-02-22 20:12] LABS: AMPHETAMINE/METHAMPHETAMINE POS (NEG)
[2019-02-22 20:42] LABS: BACTERIA,URINE FEW /HPF (0-FEW); BILIRUBIN,URINE NEG (NEG); CLARITY,URINE HAZY; COLOR,URINE PINK; GLUCOSE,URINE NEG (NEG); NITRITE,URINE NEG (NEG); RBC,URINE TNTC /HPF (0-2); SQUAMOUS EPITHELIAL CELL,UR OCC /LPF; UROBILINOGEN,URINE 0.2 mg/dL (0.2 mg/dL)
[2019-02-23] MEDS: diphenhydrAMINE 50 MG/ML VIAL IVP PRN (01:44)
[2019-02-23 05:55] VITALS: BP 109/75
[2019-02-23 07:04] LABS: HEMATOCRIT 42.1 % (36.0-47.0); HEMOGLOBIN 13.9 g/dL (12.0-15.5); RED BLOOD COUNT 4.95 x10^6/uL (3.50-5.40); RED CELL DISTRIBUTION WIDTH 18.7 % (11.5-14.5); WHITE BLOOD COUNT 11.7 x10^3/uL (4.0-11.0)
[2019-02-23 07:15] LABS: CALCIUM 9.1 mg/dL (8.5-10.1); CREATININE 0.7 mg/dL (0.6-1.0); GFR 90.9
[2019-02-23] MEDS: NICOTINE 21MG PATCH. TD SCH (08:30)
[2019-02-23] MEDS: PANTOPRAZOLE IV 40 MG VIAL. IVP SCH (08:31)
[2019-02-23] MEDS: LITHIUM CARBONATE 300 MG TABLET PO SCH ×2 (09:47→21:55)
[2019-02-23] MEDS: HALOPERIDOL LACT 5 MG/ML VIAL. IVP PRN ×3 (09:48→17:47)
[2019-02-23 10:10] VITALS: BP 106/71
[2019-02-23 16:57] VITALS: BP 108/64
[2019-02-23 19:33] VITALS: BP 107/74
[2019-02-23 23:03] VITALS: BP 113/80
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
[2019-02-24 05:30] VITALS: BP 142/64
[2019-02-24 06:25] LABS: HEMATOCRIT 42.6 % (36.0-47.0); HEMOGLOBIN 14.2 g/dL (12.0-15.5); RED BLOOD COUNT 5.06 x10^6/uL (3.50-5.40); RED CELL DISTRIBUTION WIDTH 19.3 % (11.5-14.5); WHITE BLOOD COUNT 15.5 x10^3/uL (4.0-11.0)
[2019-02-24 06:36] LABS: CALCIUM 9.2 mg/dL (8.5-10.1); CREATININE 0.6 mg/dL (0.6-1.0); GFR 108.6
[2019-02-24 06:56] LABS: BACTERIA,URINE MANY /HPF (0-FEW); BILIRUBIN,URINE NEG (NEG); CLARITY,URINE CLOUDY; COLOR,URINE YELLOW; GLUCOSE,URINE NEG (NEG); NITRITE,URINE NEG (NEG); SQUAMOUS EPITHELIAL CELL,UR OCC /LPF; UROBILINOGEN,URINE 0.2 mg/dL (0.2 mg/dL); WBC,URINE >40 /HPF (0-4)
[2019-02-24] MEDS: LITHIUM CARBONATE 300 MG TABLET PO SCH ×2 (07:03→20:57)
[2019-02-24] MEDS: NICOTINE 21MG PATCH. TD SCH (07:04)
[2019-02-24] MEDS: HALOPERIDOL LACT 5 MG/ML VIAL. IVP PRN ×4 (07:04→21:40)
[2019-02-24] MEDS: PANTOPRAZOLE IV 40 MG VIAL. IVP SCH (07:04)
[2019-02-24 17:08] VITALS: BP 106/71
[2019-02-24 20:34] VITALS: BP 118/80
--- NOTE | 2019-02-24 21:14 | PN ---
DATE: 02/24/2019 SUBJECTIVE: The patient is resting flat in bed comfortably in no apparent distress. She is much calmer and quieter today. Nursing staff, however, did not voice any concern; said she had an uneventful night. PHYSICAL EXAMINATION: GENERAL: When I examined her, she looked well and was clearly in no apparent respiratory distress. No pallor, jaundice, cyanosis, or thyromegaly. No jugular venous distension. No lower limb edema. VITAL SIGNS: Her heart rate was 97, blood pressure 142/64, temperature was 98.4, respiratory rate 22, and oxygen saturation was 98%. HEAD, EYES, EARS, NOSE AND THROAT: Normocephalic, atraumatic. NECK: Supple. HEART: Showed normal first and second heart sounds. No gallop, rub or murmur. CHEST: Clear to auscultation. No crepitation or rhonchi. ABDOMEN: Scaphoid, soft, nontender. NEUROLOGIC: She is sleepy, but arousable. All cranial nerves are intact. She moves extremities without difficulty. Her intake over the last 24 hour was 1970. LABORATORY DATA: Her lab work this morning showed that her white cell count is up to 15,500, hemoglobin 14, hematocrit 42, MCV was 84 and platelet count 348,000. Her chemistry showed a serum sodium 139, potassium 4, chloride 106, bicarbonate 24, anion gap of 9, BUN 16, creatinine was 0.6, estimated GFR was 108 mL per minute. Her glucose 113, calcium was 9.1. Her urinalysis showed the urine was yellow, cloudy with a pH of 7, specific gravity of 1.015. There is large amount of protein, negative for glucose and ketones, large amount of blood, negative for nitrite and bilirubin. There was large amount of leukocyte esterase with 11-20 rbc's, more than 40 wbc's and many bacteria. ASSESSMENT AND PLAN: In summary, suicidal ideation, self-inflicted wounds in the medial aspect of left leg, schizophrenia with auditory hallucination telling her to harm herself. Hypokalemia, improved. Urinary tract infection for which we will start her on Rocephin 1 g IV and we did test her for sexually-transmitted disease as per her request including chlamydia, gonorrhea, HIV, and syphilis the result of which is still pending at the time of this dictation. ERIC ALMENDAREZ MD DR: Eriberto JOB#: [id number] / [id number]
[2019-02-24 23:07] VITALS: BP 104/69
[2019-02-25 05:32] VITALS: BP 100/68
[2019-02-25] MEDS: HALOPERIDOL LACT 5 MG/ML VIAL. IVP PRN (06:12)
[2019-02-25 07:10] LABS: CALCIUM 9.4 mg/dL (8.5-10.1); CREATININE 0.7 mg/dL (0.6-1.0); GFR 90.9; POTASSIUM 4.5 mmol/L (3.5-5.1)
[2019-02-25 07:14] LABS: HEMOGLOBIN 14.7 g/dL (12.0-15.5); RED BLOOD COUNT 5.27 x10^6/uL (3.50-5.40); RED CELL DISTRIBUTION WIDTH 19.5 % (11.5-14.5); WHITE BLOOD COUNT 9.6 x10^3/uL (4.0-11.0)
[2019-02-25] MEDS: PANTOPRAZOLE IV 40 MG VIAL. IVP SCH (07:30)
[2019-02-25] MEDS: NICOTINE 21MG PATCH. TD SCH (09:00)
[2019-02-25] MEDS: LITHIUM CARBONATE 300 MG TABLET PO SCH (09:29)
[2019-02-25] MEDS: LORazepam 1 MG TABLET PO PRN (10:57)
--- NOTE | 2019-03-26 17:04 | DS ---
DATE OF DISCHARGE: 02/25/2019 HISTORY OF PRESENT ILLNESS: The patient is a 43-year-old female, who was admitted for suicidal ideation, self-inflicted wounds in the medial aspect of her left leg. She also has schizophrenia with auditory hallucination and prompting her to kill herself and harm herself. She did have also hypokalemia that has improved with urinary tract infection for which she was started on Rocephin. Apparently, she was under involuntary hold and she was accepted at [facility], but the patient has to be discharged to the court for a environmental service aide to determine and in fact, she was discharged on 02/25/2019 with an officer for court at 11:10 in custody by ambulation and handcuff. PHYSICAL EXAMINATION: GENERAL: On the day of discharge, she looked well and was clearly in no apparent respiratory distress. She was pale, but no jaundice, cyanosis, or thyromegaly. No jugular venous distension. No limb edema. VITAL SIGNS: Her heart rate was 92, blood pressure 100/68, temperature was 97.6, respiratory rate was 22 and oxygen saturation was 99%. HEAD, EYES, EARS, NOSE AND THROAT: Showed normocephalic, atraumatic. NECK: Supple. HEART: Showed normal first and second heart sounds. No gallop, rub or murmur. CHEST: Clear to auscultation. No crepitation or rhonchi. ABDOMEN: Scaphoid, soft, nontender. NEUROLOGIC: She was awake, alert, responding appropriately. All cranial nerves are intact. EXTREMITIES: She moves extremities without difficulty. She ambulates without assistance or assistive devices. LABORATORY DATA: White cell count was 9600, hemoglobin 14.7, hematocrit 45, MCV was 85 and platelet count 342,000. Her chemistry showed a serum sodium 140, potassium 4.5, chloride 106, bicarbonate 25, anion gap of 9, BUN 17, creatinine was 0.7, estimated GFR was 91 mL per minute. Her glucose 106, calcium was 9.4. Her urine culture has grown Escherichia coli, more than 100,000 colony forming units per mL, sensitive to almost all antibiotics. DISCHARGE MEDICATIONS: She was discharged with an officer to appear in court for the environmental service aide to determine if she needs to continue that to be transferred to [place]. She was accepted by the psychiatrist there, but she was kept involuntarily in the hospital as she has suicidal attempt and schizophrenia with auditory hallucination with voices telling her to harm herself. FINAL DISCHARGE DIAGNOSES: 1. Suicidal attempt. 2. Schizophrenia. 3. Urinary tract infection with growth of Escherichia coli. ERIC ALMENDAREZ MD DR: GUERO/agatha JOB#: [id number] / [id number]
== END 2019-02-25 11:10 | DRG 872 ==
LOC: ER 14:09 → ICU 16:19 → 1 SOUTH 17:16
PROVIDERS: ADMIT Internal Medicine; ATTEND Internal Medicine
DX: A41.9 Sepsis, unspecified organism (principal); N39.0 Urinary tract infection, site not specified; R45.851 Suicidal ideations; E87.6 Hypokalemia; F20.9 Schizophrenia, unspecified; F15.10 Other stimulant abuse, uncomplicated; F17.200 Nicotine dependence, unspecified, uncomplicated; F31.9 Bipolar disorder, unspecified; S81.802A Unspecified open wound, left lower leg, initial encounter; X58.XXXA Exposure to other specified factors, initial encounter; F41.9 Anxiety disorder, unspecified; Z79.899 Other long term (current) drug therapy; Z98.51 Tubal ligation status; Z90.49 Acquired absence of other specified parts of digestive tract; Y93.89 Activity, other specified; Y92.89 Other specified places as the place of occurrence of the external cause; Y99.8 Other external cause status
CPT/HCPCS: 36415; 80048; 80053; 80307; 81001; 83735; 85025; 85027; 86592; 86703; 87086; 87186; 87491; 87591; 87641; 93005; 96365; C9113; J0696; J1200; J1630; J2060; J2270; 99285-25

== ENCOUNTER 2019-03-11 13:21 | Emergency (ER) | payer MEDICARE ==
[~2019-03-11] VITALS: Ht 165.1 cm; Wt 61.7 kg
[2019-03-11 13:21] VITALS: BP 144/91
== END 2019-03-11 13:38 | disposition left against medical advice (07) ==
LOC: ER 13:21
DX: R44.3 Hallucinations, unspecified (principal); Z53.21 Procedure and treatment not carried out due to patient leaving prior to being seen by health care provider

== ENCOUNTER 2020-06-23 21:53 | Inpatient (IN) | payer MEDICARE ==
[~2020-06-23] VITALS: Ht 167.6 cm; Wt 60.1 kg
[2020-06-23] MEDS ORDERED: IV NORMAL SALINE 1,000ML 1,000 ML IV SCH (22:20)
--- NOTE | 2020-06-23 22:23 | PHYS DOC ---
Past History Past Medical History: Anxiety, Bipolar, Schizophrenia Past Surgical History: Other Smoking: Less than 1pk/day Alcohol Use: Occasionally Drug Use: Heroin, Methamphetamine General Adult EDM: Chief Complaint: ABDOMINAL PAIN HPI: HPI: Patient is a 44-year-old female who presents with 1 day history of epigastric pain. Patient states she has sharp epigastric pain radiates into her esophagus. Pain is worse with eating. Patient had nausea vomiting. Patient denies any blood in her stool or diarrhea constipation. Patient stated the pain is constantly there but comes in waves. Patient was seen at [facility] and discharged and came here for second opinion. She denies any fever, cough, difficulty breathing. Review of Systems: Review of Systems: Constitutional: Denies fever or chills Eyes: Denies change in visual acuity HENT: Denies nasal congestion or sore throat Respiratory: Denies cough or shortness of breath Cardiovascular: Denies chest pain or edema GI: Complains of abdominal pain, nausea, vomiting but no diarrhea : Denies dysuria Musculoskeletal: Denies back pain or joint pain Integument: Denies rash Neurologic: Denies headache, focal weakness or sensory changes Endocrine: Denies polyuria or polydipsia Lymphatic: Denies swollen glands Psychiatric: Denies depression or anxiety Heart Score: Risk Factors: Risk Factors: DM, Current or recent (<one month) smoker, HTN, HLP, family history of CAD, obesity. Risk Scores: Score 0 - 3: 2.5% MACE over next 6 weeks - Discharge Home Score 4 - 6: 20.3% MACE over next 6 weeks - Admit for Clinical Observation Score 7 - 10: 72.7% MACE over next 6 weeks - Early Invasive Strategies Allergies: Allergies: Allergies Coded Allergies Type Severity Reaction Last Updated Verified No Known Drug Allergies 04/16/18 No Physical Exam: PE: Constitutional: Well developed, well nourished, no acute distress, non-toxic appearance. [] HENT: Normocephalic, atraumatic, bilateral external ears normal, oropharynx moist, no oral exudates, nose normal. [] Eyes: PERRLA, EOMI, conjunctiva normal, no discharge. [] Neck: Normal range of motion, no tenderness, supple, no stridor. [] Cardiovascular:Heart rate regular rhythm, no murmur [] Lungs & Thorax: Bilateral breath sounds clear to auscultation [] Abdomen: soft, epigastric tenderness without guarding or rebound, no masses, no pulsatile masses. [] Skin: Warm, dry, no erythema, no rash. [] Back: No tenderness, no CVA tenderness. [] Extremities: No tenderness, no cyanosis, no clubbing, ROM intact, no edema. [] Neurologic: Alert and oriented X 3, normal motor function, normal sensory function, no focal deficits noted. [] Psychologic: Affect normal, judgement normal, mood normal. [] Current Patient Data: Labs: Laboratory Tests Test 06/23/20 22:50 White Blood Count 13.0 x10^3/uL Red Blood Count 4.64 x10^6/uL Hemoglobin 13.4 g/dL Hematocrit 40.8 % Mean Corpuscular Volume 88 fL Mean Corpuscular Hemoglobin 29 pg Mean Corpuscular Hemoglobin Concent 33 g/dL Red Cell Distribution Width 18.9 % Platelet Count 457 x10^3/uL Neutrophils (%) (Auto) 74 % Lymphocytes (%) (Auto) 15 % Monocytes (%) (Auto) 10 % Eosinophils (%) (Auto) 1 % Basophils (%) (Auto) 1 % Neutrophils # (Auto) 9.7 x10^3uL Lymphocytes # (Auto) 2.0 x10^3/uL Monocytes # (Auto) 1.2 x10^3/uL Eosinophils # (Auto) 0.1 x10^3/uL Basophils # (Auto) 0.1 x10^3/uL Segmented Neutrophils % 79 % Lymphocytes % 16 % Monocytes % 5 % Platelet Estimate Adequate Anisocytosis Slight Urine Collection Type Unknown Urine Color Red Urine Clarity Hazy Urine pH Urine Specific Comptche 1.015 Urine Protein Urine Glucose (UA) Neg mg/dL Urine Ketones (Stick) mg/dL Urine Blood Urine Nitrite Urine Bilirubin Urine Urobilinogen Dipstick mg/dL Urine Leukocyte Esterase Urine RBC Tntc /HPF Urine WBC 1-4 /HPF Urine Squamous Epithelial Cells Mod /LPF Urine Bacteria 0 /HPF Urine Mucus Mod /LPF Sodium Level 141 mmol/L Potassium Level 3.0 mmol/L Chloride Level 103 mmol/L Carbon Dioxide Level 30 mmol/L Anion Gap 8 Blood Urea Nitrogen 15 mg/dL Creatinine 1.0 mg/dL Estimated GFR (Cockcroft-Gault) 60.0 BUN/Creatinine Ratio 15 Glucose Level 123 mg/dL Calcium Level 9.0 mg/dL Total Bilirubin 0.6 mg/dL Aspartate Amino Transf (AST/SGOT) 33 U/L Alanine Aminotransferase (ALT/SGPT) 40 U/L Alkaline Phosphatase 86 U/L Total Protein 7.9 g/dL Albumin 3.7 g/dL Albumin/Globulin Ratio 0.9 Lipase 81 U/L Serum Test, Qualitative Negative Urine Opiates Screen Pos Urine Methadone Screen Neg Urine Barbiturates Neg Urine Phencyclidine Screen Neg Urine Amphetamine/Methamphetamine Pos Urine Benzodiazepines Screen Neg Urine Cocaine Screen Neg Urine Cannabinoids Screen Neg Urine Ethyl Alcohol Neg Current Medications Medications (Trade) Dose Ordered Sig/Cecilia Route PRN Reason Start Time Stop Time Status Last Admin Dose Admin Sodium Chloride 1,000 ml @ 1,000 mls/hr Q1H IV 06/23/20 22:20 06/23/20 23:19 DC 06/23/20 22:52 Ondansetron HCl (Zofran) 4 mg 1X ONCE IVP 06/23/20 22:30 06/23/20 22:31 DC 06/23/20 22:52 Dicyclomine HCl (Bentyl) 20 mg 1X ONCE IM 06/23/20 22:30 06/23/20 22:31 DC 06/23/20 22:53 Iohexol (Omnipaque 300 Mg/ml) 75 ml 1X ONCE IV 06/23/20 23:00 06/23/20 23:01 DC 06/23/20 23:29 Info (Do NOT chart on this entry -- for MONITORING) 1 each PRN DAILY PRN MC SEE COMMENTS 06/23/20 22:30 06/25/20 22:29 Haloperidol Lactate (Haldol) 2.5 mg 1X ONCE IVP 06/24/20 00:00 06/24/20 00:01 UNV Vital Signs: Vital Signs Date Time Temp Pulse Resp B/P (MAP) Pulse Ox O2 Delivery O2 Flow Rate FiO2 06/23/20 21:55 98.0 77 20 133/70 (91) 99 Room Air EKG: EKG: [] Radiology/Procedures: Radiology/Procedures: [][address] [address] IMAGING REPORT Signed PATIENT: NELY VERAINA Sonali ACCOUNT: [id number] : 1975 LOCATION: ER AGE: 44 SEX: F EXAM STATUS: REG ER ORD. PHYSICIAN: NATALEE PARKER MD REASON: Epigastric pain, nausea, vomiting PROCEDURE: CT ABD PELV W/ IV CONTRST ONLY EXAM: CT Abdomen and Pelvis with IV contrast CLINICAL HISTORY: Epigastric pain, nausea, vomiting COMPARISON: 04/16/2018, 05/04/2018 TECHNIQUE: Helical CT of the abdomen and pelvis was performed following the administration of IV contrast. Axial, coronal and sagittal reformatted images were generated. ---PQRS compliance statement - One or more of the following individualized dose reduction techniques were utilized for this study: 1. Automated exposure control 2. Adjustment of the mA and/or kV according to patient size 3. Use of iterative reconstruction technique--- FINDINGS: Lower chest: Clear Abdomen and pelvis: Liver and biliary system: Hepatic hypoattenuation along the falciform ligament may represent focal fatty infiltration, unchanged to 04/16/2018. Mild periportal edema. Cholecystectomy clips are seen. No biliary dilatation. Spleen: Calcified granuloma are seen within the spleen. Hypodense splenic lesion is also unchanged to 04/16/2018. Pancreas: Unremarkable Adrenal glands: Unremarkable Kidneys: Symmetric nephrograms. No focal renal lesion. No hydronephrosis. No hydroureter. Bladder is unremarkable. Lymph nodes/retroperitoneum: No abdominal or pelvic lymphadenopathy. No abdominal or pelvic ascites. Vessels: Aorta is normal in caliber. Bowel/Peritoneal cavity: There is diffuse small bowel wall thickening with mucosal and muscularis enhancement with edematous appearance of the submucosa. Appendix is normal. Small volume ascites. A 3.2 cm enhancing focus is seen within the uterus, likely uterine fibroid. Abdominal wall: Trace fat-containing periumbilical hernia Bladder: Bladder wall thickening likely cystitis Bones: No aggressive osseous lesion is seen. IMPRESSION: 1. Diffuse small bowel thickening may be seen with infectious or inflammatory colitis. Portal hypertension may also have this appearance. 2. 3.2 cm enhancing mass within the uterus, likely uterine fibroid. If this needs be further assessed, ultrasound would provide additional details. 3. Small volume pelvic ascites. 4. Bladder wall thickening likely cystitis Electronically signed by: Jj Bowman MD (06/23/2020 11:57 PM) [facility] DICTATED AND SIGNED BY: JJ BOWMAN MD DATE: 06/23/20 6160 CC: NATALEE PARKER MD; DAVID TANNER MD ~ Course & Med Decision Making: Course & Med Decision Making Pertinent Labs and Imaging studies reviewed. (See chart for details) [] Patient signed consents and reviewed records from [facility]. There she admitted to heroin use 4 days ago and this may be withdrawal components. Patient underwent a EKG there which was unremarkable. Patient also had a negative troponin there. Patient had mild hypokalemia and mild leukocytosis otherwise her laboratory evaluation was unremarkable. Patient received Benadryl, GI cocktail, Haldol, Toradol, Phenergan and a fluid bolus. On reassessment patient is better but still having diffuse abdominal pain Work-up reveals leukocytosis, hypokalemia and diffuse inflammation of the small bowel on CT. Patient will be given Levaquin and Flagyl I discussed the case with who will admit the patient for fluids and antibiotics. MIPS measure hCG checked and female with abdominal pain and negative Dragon Disclaimer: Dragon Disclaimer: This electronic medical record was generated, in whole or in part, using a voice recognition dictation system. Departure Departure: Impression: Primary Impression: Inflammation of small intestine Additional Impressions: Diffuse abdominal pain Nausea & vomiting Disposition: ADMITTED INPATIENT Condition: STABLE Referrals: DAVID TANNER MD (PCP) Justification of Admission: Justification of Admission: Justification of Admission Dx: Yes NATALEE PARKER MD Jun 23, 2020 22:23
[2020-06-23] MEDS ORDERED: DICYCLOMINE 20 MG/2 ML VIAL. IM ONE (22:30)
[2020-06-23] MEDS ORDERED: ONDANSETRON PF 4 MG/2 ML VIAL. IVP ONE (22:30)
[2020-06-23] MEDS ORDERED: CONTRAST GIVEN. MC PRN (22:30)
[2020-06-23] MEDS ORDERED: IOHEXOL 300 MG/ML 75 ML VIAL. IV ONE (23:00)
[2020-06-23 23:08] LABS: BASO # 0.1 x10^3/uL (0.0-0.2); BASO % 1 % (0-3); EOS # 0.1 x10^3/uL (0.0-0.7); EOS % 1 % (0-3); HEMATOCRIT 40.8 % (36.0-47.0); HEMOGLOBIN 13.4 g/dL (12.0-15.5); LYMPH % 15 % (24-48); MEAN CORPUSCULAR HEMOGLOBIN 29 pg (25-35); MEAN CORPUSCULAR HGB CONC 33 g/dL (31-37); MEAN CORPUSCULAR VOLUME 88 fL (79-100); MONO # 1.2 x10^3/uL (0.0-1.1); MONO % 10 % (0-9); NEUT # 9.7 x10^3uL (1.8-7.7); NEUT % 74 % (31-73); PLATELET COUNT 457 x10^3/uL (140-400); RED BLOOD COUNT 4.64 x10^6/uL (3.50-5.40); RED CELL DISTRIBUTION WIDTH 18.9 % (11.5-14.5)
[2020-06-23 23:09] LABS: BARBITURATES NEG (NEG); BENZODIAZEPINES NEG (NEG); CANNABINOIDS NEG (NEG); COCAINE NEG (NEG); METHADONE NEG (NEG); OPIATES POS (NEG); PHENCYCLIDINE NEG (NEG)
[2020-06-23 23:11] LABS: AMPHETAMINE/METHAMPHETAMINE POS (NEG)
[2020-06-23 23:20] LABS: PREG TEST PT QUAL NEGATIVE (NEG)
[2020-06-23 23:21] LABS: ALBUMIN 3.7 g/dL (3.4-5.0); ALBUMIN/GLOBULIN RATIO 0.9 (1.0-1.7); CLARITY,URINE HAZY; COLOR,URINE RED; GLUCOSE,URINE NEG (NEG); TOTAL BILIRUBIN 0.6 mg/dL (0.2-1.0); TOTAL PROTEIN 7.9 g/dL (6.4-8.2)
[2020-06-23 23:23] LABS: BACTERIA,URINE 0 /HPF (0-FEW); RBC,URINE TNTC /HPF (0-2); SQUAMOUS EPITHELIAL CELL,UR MOD /LPF
[2020-06-23 23:45] LABS: % LYMPHS 16 % (24-48); % MONOS 5 % (0-10); % SEGS 79 % (35-66); PLT ESTIMATE ADEQUATE (ADEQUATE)
[2020-06-23 23:46] LABS: ANISOCYTOSIS SLIGHT
--- NOTE | 2020-06-23 23:59 | RAD ---
EXAM: CT Abdomen and Pelvis with IV contrast CLINICAL HISTORY: Epigastric pain, nausea, vomiting COMPARISON: 04/16/2018, 05/04/2018 TECHNIQUE: Helical CT of the abdomen and pelvis was performed following the administration of IV contrast. Axial, coronal and sagittal reformatted images were generated. ---PQRS compliance statement - One or more of the following individualized dose reduction techniques were utilized for this study: 1. Automated exposure control 2. Adjustment of the mA and/or kV according to patient size 3. Use of iterative reconstruction technique--- FINDINGS: Lower chest: Clear Abdomen and pelvis: Liver and biliary system: Hepatic hypoattenuation along the falciform ligament may represent focal fatty infiltration, unchanged to 04/16/2018. Mild periportal edema. Cholecystectomy clips are seen. No biliary dilatation. Spleen: Calcified granuloma are seen within the spleen. Hypodense splenic lesion is also unchanged to 04/16/2018. Pancreas: Unremarkable Adrenal glands: Unremarkable Kidneys: Symmetric nephrograms. No focal renal lesion. No hydronephrosis. No hydroureter. Bladder is unremarkable. Lymph nodes/retroperitoneum: No abdominal or pelvic lymphadenopathy. No abdominal or pelvic ascites. Vessels: Aorta is normal in caliber. Bowel/Peritoneal cavity: There is diffuse small bowel wall thickening with mucosal and muscularis enhancement with edematous appearance of the submucosa. Appendix is normal. Small volume ascites. A 3.2 cm enhancing focus is seen within the uterus, likely uterine fibroid. Abdominal wall: Trace fat-containing periumbilical hernia Bladder: Bladder wall thickening likely cystitis Bones: No aggressive osseous lesion is seen. IMPRESSION: 1. Diffuse small bowel thickening may be seen with infectious or inflammatory colitis. Portal hypertension may also have this appearance. 2. 3.2 cm enhancing mass within the uterus, likely uterine fibroid. If this needs be further assessed, ultrasound would provide additional details. 3. Small volume pelvic ascites. 4. Bladder wall thickening likely cystitis Electronically signed by: Jj Padilla MD (06/23/2020 11:57 PM) [email or web address]
[2020-06-24] MEDS ORDERED: HALOPERIDOL LACT 5 MG/ML VIAL. IVP ONE (00:30)
[2020-06-24] MEDS ORDERED: POTASSIUM CHLORIDE 20 MEQ TABLET.ER. PO ONE (00:30)
[2020-06-24] MEDS ORDERED: ONDANSETRON PF 4 MG/2 ML VIAL. IVP PRN (01:15)
[2020-06-24 02:15] VITALS: BP 172/92
[2020-06-24] MEDS: IV NORMAL SALINE 1,000ML 1,000 ML IV SCH ×2 (02:20→08:29)
[2020-06-24] MEDS ORDERED: OLAN15TA7 PO (02:46)
[2020-06-24] MEDS ORDERED: BUSP10TA PO (02:46)
[2020-06-24] MEDS ORDERED: LITH300C PO (02:46)
[2020-06-24 05:31] VITALS: BP 149/84
[2020-06-24] MEDS ORDERED: ONDANSETRON ODT 4 MG TAB.RAPDIS PO PRN (09:45)
[2020-06-24 11:27] VITALS: BP 154/97
[2020-06-24] MEDS ORDERED: METR-111 PO (12:24)
[2020-06-24] MEDS ORDERED: ONDA4TAB7 PO (12:24)
[2020-06-24] MEDS ORDERED: LEVO500T59 PO (12:24)
--- NOTE | 2020-06-24 12:31 | SSS ---
ADMIT DATE: 06/24/2020 HISTORY OF PRESENT ILLNESS: The patient is a 44-year-old female patient who presented to the Emergency Room of [facility] with 1-day history of epigastric pain. The patient states she has sharp epigastric pain that radiates into her esophagus. The pain is worse with eating. The patient has nausea and vomiting. Denied any blood in her stool, diarrhea or constipation. The patient states that the pain is constantly there but comes in waves. The patient was seen at [facility] and discharged and came here for a second opinion. She denies any fever, cough, difficulty breathing. She was extensively investigated in the Emergency Room. Her white cell count was slightly elevated. Her chemistry showed that she has hypokalemia. Urinalysis was essentially unremarkable and her toxic screen was positive for opiates, amphetamine, methamphetamine. Has had a CT scan of the abdomen and pelvis, which basically showed that the patient has diffuse small bowel thickening, may be seen with infectious inflammatory colitis, portal hypertension may also have this appearance. She has 3.2 cm enhancing mass within the uterus, likely uterine fibroid. This needs to be further assessed. Ultrasound will provide additional details. She has small volume pelvic ascites and bladder wall thickening, likely cystitis. She was treated with IV fluid, Flagyl and levofloxacin and was admitted for inpatient treatment. Unfortunately, she pulled about 4 IV lines in this short period of time that she was admitted. I have had a lengthy discussion with her and basically decision was made to discharge her home to continue treatment with oral antibiotic in the form of levofloxacin and Flagyl. PAST MEDICAL HISTORY: Significant for bipolar disorder as well as schizophrenia as well as mental confusion as well as an overdose. PAST SURGICAL HISTORY: Significant for cholecystectomy, tonsillectomy, and tubal ligation. FAMILY HISTORY: Unremarkable. SOCIAL HISTORY: She is a smoker. She does not drink alcohol, but abuses methamphetamine and heroin. She has had prior episodes of suicidal ideation and suicidal attempt. ALLERGIES: She has no known drug allergies. MEDICATIONS: She is currently on loxapine 25 mg twice a day, olanzapine 15 mg at bedtime, buspirone 10 mg twice a day, lithium 300 mg twice a day and omeprazole 20 mg once a day. PHYSICAL EXAMINATION: GENERAL: On arrival to the Emergency Room, she looked well and was clearly in no apparent respiratory distress. There is no pallor, jaundice, cyanosis or thyromegaly. No jugular venous distention or limb edema. VITAL SIGNS: Her heart rate was 70, blood pressure was 145/88, temperature was 97.9, respiratory rate was 18 and oxygen saturation was 99% on room air. HEAD, EYES, EARS, NOSE AND THROAT: She is normocephalic, atraumatic. NECK: Supple. HEART: Showed normal first and second heart sounds. No gallop or murmur. CHEST: Clear to auscultation. No crepitation or rhonchi. ABDOMEN: Soft with epigastric tenderness. There is no guarding or rigidity. No organomegaly. All hernial orifice intact. Bowel sounds normal. NEUROLOGIC: She is awake, alert, oriented with no obvious lateralizing sign. LABORATORY DATA: Her lab work on arrival showed a white cell count of 13,000, hemoglobin 13.4, hematocrit 41, MCV 88 and platelet count 457,000 with normal manual differential. Her chemistry showed a serum sodium 141, potassium 3, chloride 103, bicarbonate 30, anion gap of 8, BUN 15, creatinine 1, estimated GFR was 60 mL per minute. Her glucose was 123, calcium was 9. Total bilirubin, AST, ALT, alkaline phosphatase were normal. Total protein 7.9, albumin was 3.7. Lipase was 81. Serum was negative and as I stated earlier a CT scan of the abdomen and pelvis showed that she has diffuse small bowel thickening, may be seen with infectious inflammatory colitis. Portal hypertension may also have this appearance. PLAN: The patient was treated initially with IV Levaquin and Flagyl. Unfortunately, the patient continued to pull all her IV lines. She has pulled about 4 of them. I spoke with her and that if she wants us to treat her as an inpatient she has to keep her IV line and has to continue with IV antibiotic. Otherwise, she can go home on oral antibiotic in the form of Levaquin and Flagyl. She opted to be discharged home. I will discharge her with a course of Levaquin as well as Flagyl with advice that she does not drink alcohol while she is on Flagyl and should continue follow up with her primary care physician. ERIC ALMENDAREZ MD DR: GUERO/agatha JOB#: [id number] / [id number]
== END 2020-06-24 13:03 | disposition home or self-care (01) | DRG 690 ==
LOC: ER 21:53 → 1 SOUTH 06-24 01:12
PROVIDERS: ADMIT Internal Medicine; ATTEND Internal Medicine
DX: N30.90 Cystitis, unspecified without hematuria (principal); K76.6 Portal hypertension; K52.9 Noninfective gastroenteritis and colitis, unspecified; E87.6 Hypokalemia; F15.10 Other stimulant abuse, uncomplicated; F17.200 Nicotine dependence, unspecified, uncomplicated; F20.9 Schizophrenia, unspecified; F31.9 Bipolar disorder, unspecified; F41.9 Anxiety disorder, unspecified
CPT/HCPCS: 36415; 74177; 80053; 80178; 80307; 81001; 83690; 84703; 85007; 85025; 96361; 96365; 96372; 96375; 99406; J0500; J1630; J1956; J2060; J2405; J3490; Q0162; Q9967; 99285-25; J7030

== ENCOUNTER 2020-10-11 12:41 | Emergency (ER) | payer MEDICARE ==
[~2020-10-11] VITALS: Ht 167.6 cm; Wt 60.1 kg
[~2020-10-11 12:41] MED LIST changes: +BUSP10TA PO; +LEVO500T59 PO; +LITH300C PO; +METR-111 PO; +OLAN15TA7 PO
--- NOTE | 2020-10-11 13:04 | PHYS DOC ---
Past History Past Medical History: Anxiety, Bipolar, Schizophrenia Past Surgical History: Tubal ligation Smoking: Less than 1pk/day Alcohol Use: Occasionally Drug Use: Heroin, Methamphetamine Social History Narrative: None in thelast four days. General Adult EDM: Chief Complaint: VAGINAL BLEEDING HPI: HPI: Patient is a 45-year-old female presents with a chief complaint of vaginal bleeding. Patient started bleeding yesterday. Patient's last period was 3 to 4 months prior. Patient has a history of hyper thyroidism and has missed her melita od when her thyroid levels were off in the past. Patient saw Dr. Delarosa and had blood work with that result is pending. Patient denies any recent illnesses such as fever, chills, cough, vomiting or diarrhea. Patient denies any shortness of breath. Patient denies any abdominal pain. Review of Systems: Review of Systems: Constitutional: Denies fever or chills Eyes: Denies change in visual acuity HENT: Denies nasal congestion or sore throat Respiratory: Denies cough or shortness of breath Cardiovascular: Denies chest pain or edema GI: Denies abdominal pain, nausea, vomiting, bloody stools or diarrhea : Denies dysuria, complains of vaginal bleeding Musculoskeletal: Denies back pain or joint pain Integument: Denies rash Neurologic: Denies headache, focal weakness or sensory changes Endocrine: Denies polyuria or polydipsia Lymphatic: Denies swollen glands Psychiatric: Denies depression or anxiety Current Medications: Current Meds: Active Scripts Active Zofran (Ondansetron Hcl) 4 Mg Tablet 1 Tab PO Q6HRS 7 Days Metronidazole 250 Mg Tablet 1 Tab PO TID 7 Days Levaquin (Levofloxacin) 500 Mg Tablet 1 Tab PO DAILY 7 Days Reported Olanzapine Odt (Olanzapine) 15 Mg Tab.rapdis 15 Mg PO DAILY [place] Carbonate 300 Mg Capsule 300 Mg PO BID Buspirone Hcl 10 Mg Tablet 10 Mg PO BID Omeprazole 20 Mg Tablet.dr 20 Mg PO DAILY [place] Carbonate 300 Mg Tablet 300 Mg PO BID Loxapine (Loxapine Succinate) 25 Mg Capsule 25 Mg PO BID Allergies: Allergies: Allergies Coded Allergies Type Severity Reaction Last Updated Verified No Known Drug Allergies 04/16/18 No Physical Exam: PE: Constitutional: Well developed, well nourished, no acute distress, non-toxic appearance. [] HENT: Normocephalic, atraumatic, bilateral external ears normal, no trismus nose normal. [] Eyes: PERRLA, EOMI, conjunctiva normal, no discharge. [] Neck: Normal range of motion, no tenderness, supple, no stridor. [] Cardiovascular:Heart rate regular rhythm, peripheral pulses are intact cap refill is brisk Lungs & Thorax: Bilateral breath sounds clear, no respiratory distress Abdomen: l, soft, no tenderness, no masses, no pulsatile masses. [] Skin: Warm, dry, no erythema, no rash. [] Back: No tenderness, no CVA tenderness. [] Extremities: No tenderness, no cyanosis, no clubbing, ROM intact, no edema. [] Neurologic: Alert and oriented X 3, normal motor function, normal sensory function, no focal deficits noted. [] Psychologic: Affect normal, judgement normal, mood normal. [] Current Patient Data: Labs: Laboratory Tests Test 10/11/20 13:39 White Blood Count 8.7 x10^3/uL Red Blood Count 5.12 x10^6/uL Hemoglobin 14.7 g/dL Hematocrit 44.6 % Mean Corpuscular Volume 87 fL Mean Corpuscular Hemoglobin 29 pg Mean Corpuscular Hemoglobin Concent 33 g/dL Red Cell Distribution Width 16.9 % Platelet Count 415 x10^3/uL Neutrophils (%) (Auto) 64 % Lymphocytes (%) (Auto) 26 % Monocytes (%) (Auto) 7 % Eosinophils (%) (Auto) 2 % Basophils (%) (Auto) 1 % Neutrophils # (Auto) 5.6 x10^3uL Lymphocytes # (Auto) 2.3 x10^3/uL Monocytes # (Auto) 0.6 x10^3/uL Eosinophils # (Auto) 0.2 x10^3/uL Basophils # (Auto) 0.1 x10^3/uL Sodium Level 141 mmol/L Potassium Level 3.2 mmol/L Chloride Level 106 mmol/L Carbon Dioxide Level 26 mmol/L Anion Gap 9 Blood Urea Nitrogen 13 mg/dL Creatinine 0.8 mg/dL Estimated GFR (Cockcroft-Gault) 77.2 BUN/Creatinine Ratio 16 Glucose Level 101 mg/dL Calcium Level 9.4 mg/dL Total Bilirubin 0.3 mg/dL Aspartate Amino Transf (AST/SGOT) 21 U/L Alanine Aminotransferase (ALT/SGPT) 33 U/L Alkaline Phosphatase 111 U/L Total Protein 8.1 g/dL Albumin 3.8 g/dL Albumin/Globulin Ratio 0.9 Serum Test, Qualitative Negative Vital Signs: Vital Signs Date Time Temp Pulse Resp B/P (MAP) Pulse Ox O2 Delivery O2 Flow Rate FiO2 10/11/20 12:43 98.0 82 16 155/95 (115) 100 Room Air EKG: EKG: [] Radiology/Procedures: Radiology/Procedures: [][address] [address] IMAGING REPORT Signed PATIENT: SHIMON VERA ACCOUNT: [id number] : 1975 LOCATION: ER AGE: 45 SEX: F EXAM STATUS: REG ER ORD. PHYSICIAN: NATALEE PARKER MD REASON: vag bleeding PROCEDURE: PELVIS COMPLETE INDICATION: Reason: vag bleeding / Spl. Instructions: / History: COMPARISON: June 23, 2020 TECHNIQUE: Grayscale and color ultrasound images uterus and adnexa. FINDINGS: Uterus: 102 x 57 x 43 mm. Endometrial Stripe: 5 mm. Right Ovary: 23 x 23 x 20 mm. Left Ovary: 38 x 32 x 30 mm. Vascular flow identified to bilateral ovaries. 31 x 30 x 24 mm left ovarian cyst. Masslike structure at the uterine fundus within the myometrium measuring 39 x 30 x 36 mm. IMPRESSION: * Suspected solid mass at the fundus of the uterus most likely from fibroid. * Left ovarian cyst. Electronically signed by: Tracey York MD (10/11/2020 1:50 PM) [id number] DICTATED AND SIGNED BY: TRACEY YORK MD DATE: 10/11/20 7282 CC: NATALEE PARKER MD; PCP,NO ~ Heart Score: Risk Factors: Risk Factors: DM, Current or recent (<one month) smoker, HTN, HLP, family history of CAD, obesity. Risk Scores: Score 0 - 3: 2.5% MACE over next 6 weeks - Discharge Home Score 4 - 6: 20.3% MACE over next 6 weeks - Admit for Clinical Observation Score 7 - 10: 72.7% MACE over next 6 weeks - Early Invasive Strategies Course & Med Decision Making: Course & Med Decision Making Pertinent Labs and Imaging studies reviewed. (See chart for details) [] 45-year-old female presents with vaginal bleeding. Patient will have history hypothyroidism and her TSH has been checked which will be pending at the time of discharge. Patient has fibroids on ultrasound but otherwise has an unremarkable work-up. Patient has a benign abdominal exam. Patient stable for discharge and follow-up with her primary care doctor chelsea Wiggins Disclaimer: Rosalie Disclaimer: This electronic medical record was generated, in whole or in part, using a voice recognition dictation system. Departure Departure: Impression: Primary Impression: Vaginal bleeding Disposition: DC HOME SELF CARE/HOMELESS Referrals: PCPVIVIAN (PCP) RADHA SOMERS MD 2-3 days Patient Instructions: Uterine Fibroid, [id number] Additional Instructions: EMERGENCY DEPARTMENT GENERAL DISCHARGE INSTRUCTIONS THANK YOU for coming to [facility] Emergency Department (ED) today and trusting us with your care. We trust that you had a positive experience in our Emergency Department. If you wish to speak to the department Management you can contact the emergency department at YOUR FOLLOW UP INSTRUCTIONS ARE FOLLOWS: Do you have a private doctor? If you do not have a private doctor, please ask for a resource list of physicians or clinics that may be able to assist you with follow up c are. The Emergency Physician has interpreted your x-rays. The X-ray specialist will also review them. If there is a change in the findings you will be notified in 48 hours when at all possible. A lab test or lab culture may have been done, your results will be reviewed and you will be notified if you need a change in treatment. ADDITIONAL INSTRUCTIONS AND INFORMATION Your care today has been supervised by a physician who is specially trained in emergency care. Many problems require more than one evaluation for a complete diagnosis and treatment. We recommend that you schedule your follow up appointment as recommended to ensure complete treatment of your illness or injury. If you are unable to obtain follow up care and continue to have a problem, or if your condition worsens we recommend that you return to the ED. We are not able to safely determine your condition over the phone nor are we able to give sound medical advice over the phone. For these safety reasons, if you call for medical advice we will ask you to come to the ED for further evaluation If you have any questions regarding these discharge instructions please call the ED at . SAFETY INFORMATION In the interest of safety, wellness, and injury prevention; we encourage you to wear your seatbelt, if you smoke; quit smoking, and we encourage your family to use protective helmet for bicycling and other sporting events that present an increased risk for head injury. IF YOUR SYMPTOMS WORSEN OR NEW SYMPTOMS DEVELOP, OR YOU HAVE CONCERNS ABOUT YOUR CONDITION; OR IF YOUR CONDITION WORSENS WHILE YOU ARE WAITING FOR YOUR FOLLOW UP APPOINTMENT; EITHER CONTACT YOUR PRIMARY CARE DOCTOR, THE PHYSICIAN WHOSE NAME AND NUMBER YOU WERE GIVEN, OR RETURN TO THE ED IMMEDIATELY. NATALEE PARKER MD Oct 11, 2020 13:04
--- NOTE | 2020-10-11 13:53 | RAD ---
INDICATION: Reason: vag bleeding / Spl. Instructions: / History: COMPARISON: June 23, 2020 TECHNIQUE: Grayscale and color ultrasound images uterus and adnexa. FINDINGS: Uterus: 102 x 57 x 43 mm. Endometrial Stripe: 5 mm. Right Ovary: 23 x 23 x 20 mm. Left Ovary: 38 x 32 x 30 mm. Vascular flow identified to bilateral ovaries. 31 x 30 x 24 mm left ovarian cyst. Masslike structure at the uterine fundus within the myometrium measuring 39 x 30 x 36 mm. IMPRESSION: * Suspected solid mass at the fundus of the uterus most likely from fibroid. * Left ovarian cyst. Electronically signed by: Servando Paul MD (10/11/2020 1:50 PM) [id number]
[2020-10-11 13:55] LABS: BASO # 0.1 x10^3/uL (0.0-0.2); BASO % 1 % (0-3); EOS # 0.2 x10^3/uL (0.0-0.7); EOS % 2 % (0-3); HEMATOCRIT 44.6 % (36.0-47.0); HEMOGLOBIN 14.7 g/dL (12.0-15.5); LYMPH # 2.3 x10^3/uL (1.0-4.8); LYMPH % 26 % (24-48); MEAN CORPUSCULAR HEMOGLOBIN 29 pg (25-35); MEAN CORPUSCULAR HGB CONC 33 g/dL (31-37); MEAN CORPUSCULAR VOLUME 87 fL (79-100); MONO # 0.6 x10^3/uL (0.0-1.1); MONO % 7 % (0-9); NEUT # 5.6 x10^3uL (1.8-7.7); NEUT % 64 % (31-73); PLATELET COUNT 415 x10^3/uL (140-400); RED BLOOD COUNT 5.12 x10^6/uL (3.50-5.40); RED CELL DISTRIBUTION WIDTH 16.9 % (11.5-14.5); WHITE BLOOD COUNT 8.7 x10^3/uL (4.0-11.0)
[2020-10-11 14:09] LABS: CALCIUM 9.4 mg/dL (8.5-10.1); CREATININE 0.8 mg/dL (0.6-1.0); GFR 77.2; POTASSIUM 3.2 mmol/L (3.5-5.1)
[2020-10-11 14:10] LABS: PREG TEST PT QUAL NEGATIVE (NEG)
[2020-10-11 14:13] LABS: ALBUMIN 3.8 g/dL (3.4-5.0); ALBUMIN/GLOBULIN RATIO 0.9 (1.0-1.7); TOTAL BILIRUBIN 0.3 mg/dL (0.2-1.0); TOTAL PROTEIN 8.1 g/dL (6.4-8.2)
[2020-10-11 15:09] VITALS: BP 154/61
[2020-10-11 15:40] LABS: BILIRUBIN,URINE NEG (NEG); CLARITY,URINE CLOUDY; COLOR,URINE AMBER; GLUCOSE,URINE NEG (NEG); NITRITE,URINE NEG (NEG); RBC,URINE TNTC /HPF (0-2)
[2020-10-11 15:41] LABS: BACTERIA,URINE 0 /HPF (0-FEW); WBC,URINE 0 /HPF (0-4)
== END 2020-10-11 16:12 | disposition home or self-care (01) ==
LOC: ER 12:41
DX: N93.9 Abnormal uterine and vaginal bleeding, unspecified (principal); F41.9 Anxiety disorder, unspecified; F31.9 Bipolar disorder, unspecified; F20.9 Schizophrenia, unspecified; F17.200 Nicotine dependence, unspecified, uncomplicated; Z98.51 Tubal ligation status
CPT/HCPCS: 36415; 76856; 80053; 81001; 84443; 84703; 85025; 99284

== ENCOUNTER 2020-10-12 01:29 | Emergency (ER) | payer MEDICARE ==
[~2020-10-12] VITALS: Ht 167.6 cm; Wt 60.1 kg
--- NOTE | 2020-10-12 01:56 | PHYS DOC ---
Past History Past Medical History: Anxiety, Bipolar, Schizophrenia Past Surgical History: Tubal ligation Smoking: Less than 1pk/day Alcohol Use: Occasionally Drug Use: Heroin, Methamphetamine General Adult EDM: Chief Complaint: VAGINAL BLEEDING HPI: HPI: 45-year-old female presents via EMS for vaginal bleeding. She was just seen in this emergency room less than 24 hours ago. He tells me that she was having an emotional conversation with blood was "spurting out of her vagina". She thought this was very unusual and could not be normal. She started menstrual cycle day before yesterday. She has not had a menstrual cycle in 3 to 4 months. She has known thyroid dysfunction. She is not able to quantify the amount of bleeding. She states that she does not have significant pain. Denies fever or chills. Review of Systems: Review of Systems: Constitutional: Denies fever or chills Eyes: Denies change in visual acuity HENT: Denies nasal congestion or sore throat Respiratory: Denies cough or shortness of breath Cardiovascular: Denies chest pain or edema GI: Denies abdominal pain, nausea, vomiting, bloody stools or diarrhea : Vaginal bleeding Musculoskeletal: Denies back pain or joint pain Integument: Denies rash Neurologic: Denies headache, focal weakness or sensory changes Endocrine: Denies polyuria or polydipsia Lymphatic: Denies swollen glands Psychiatric: Denies depression or anxiety Allergies: Allergies: Allergies Coded Allergies Type Severity Reaction Last Updated Verified No Known Drug Allergies 04/16/18 No Physical Exam: PE: Constitutional: Well developed, well nourished, no acute distress, non-toxic appearance. [] HENT: Normocephalic, atraumatic, bilateral external ears normal, oropharynx moist, no oral exudates, nose normal. [] Eyes: PERRLA, EOMI, conjunctiva normal, no discharge. [] Neck: Normal range of motion, no tenderness, supple, no stridor. [] Cardiovascular:Heart rate regular rhythm, no murmur [] Lungs & Thorax: Bilateral breath sounds clear to auscultation [] Abdomen: Bowel sounds normal, soft, no tenderness, no masses, no pulsatile masses. [] Skin: Warm, dry, no erythema, no rash. [] Back: No tenderness, no CVA tenderness. [] Extremities: No tenderness, no cyanosis, no clubbing, ROM intact, no edema. [] Neurologic: Alert and oriented X 3, normal motor function, normal sensory function, no focal deficits noted. [] Psychologic: Affect normal, judgement normal, mood very anxious. [] Current Patient Data: Vital Signs: Vital Signs Date Time Temp Pulse Resp B/P (MAP) Pulse Ox O2 Delivery O2 Flow Rate FiO2 10/12/20 01:38 98.0 90 18 143/103 (116) EKG: EKG: [] Radiology/Procedures: Radiology/Procedures: [] Impressions: One view abdomen pelvis 2:04 AM HISTORY: Abdominal pain Supine AP view abdomen pelvis There is air and stool scattered throughout the colon. There is a paucity of small bowel gas. There is no obvious free air on this supine view. There is evidence prior cholecystectomy. IMPRESSION: Constipation. Electronically signed by: Juan Pablo Grey III, MD (10/12/2020 2:15 AM) [facility] DICTATED AND SIGNED BY: JUAN PABLO GREY III, MD DATE: 10/12/20214 CC: ABDIEL RIGGINS DO; DAVID TANNER MD ~ Heart Score: Risk Factors: Risk Factors: DM, Current or recent (<one month) smoker, HTN, HLP, family history of CAD, obesity. Risk Scores: Score 0 - 3: 2.5% MACE over next 6 weeks - Discharge Home Score 4 - 6: 20.3% MACE over next 6 weeks - Admit for Clinical Observation Score 7 - 10: 72.7% MACE over next 6 weeks - Early Invasive Strategies Course & Med Decision Making: Course & Med Decision Making Pertinent Labs and Imaging studies reviewed. (See chart for details) [facility] When I told her that her bleeding may not be unusual, and she is also having some epigastric pain that is worse after she walks a long way. She demanded that I call her primary care physician and bring him to the emergency room. It is 1:50 in the morning. I explained that this was not possible and not necessary. We will repeat her CBC, CMP and do a KUB. She had an ultrasound yesterday that showed uterine fibroid and an ovarian cyst. The patient's KUB showed constipation but no other significant acute findings. The patient's CBC shows a normal hemoglobin. She does not appear to be bleeding aggressively. This is likely normal variant of her menstrual cycle. Her anxiety is complicating her situation. She is medically stable for discharge at this time. [] Dragon Disclaimer: Dragon Disclaimer: This electronic medical record was generated, in whole or in part, using a voice recognition dictation system. Departure Departure: Impression: Primary Impression: Menstrual bleeding problem Additional Impression: Anxiety disorder Disposition: 01 DC HOME SELF CARE/HOMELESS Condition: STABLE Referrals: DAVID TANNER MD (PCP) Patient Instructions: Anxiety and Panic Attacks, [id number] ABDIEL RIGGINS DO Oct 12, 2020 01:56
--- NOTE | 2020-10-12 02:18 | RAD ---
One view abdomen pelvis 2:04 AM HISTORY: Abdominal pain Supine AP view abdomen pelvis There is air and stool scattered throughout the colon. There is a paucity of small bowel gas. There is no obvious free air on this supine view. There is evidence prior cholecystectomy. IMPRESSION: Constipation. Electronically signed by: Anselmo Grey III, MD (10/12/2020 2:15 AM) [facility]
[2020-10-12 02:47] LABS: BASO # 0.1 x10^3/uL (0.0-0.2); BASO % 1 % (0-3); EOS # 0.1 x10^3/uL (0.0-0.7); EOS % 1 % (0-3); HEMATOCRIT 42.5 % (36.0-47.0); HEMOGLOBIN 13.7 g/dL (12.0-15.5); LYMPH # 2.4 x10^3/uL (1.0-4.8); LYMPH % 22 % (24-48); MEAN CORPUSCULAR HEMOGLOBIN 28 pg (25-35); MEAN CORPUSCULAR HGB CONC 32 g/dL (31-37); MEAN CORPUSCULAR VOLUME 88 fL (79-100); MONO # 0.9 x10^3/uL (0.0-1.1); MONO % 9 % (0-9); NEUT # 7.4 x10^3uL (1.8-7.7); NEUT % 68 % (31-73); PLATELET COUNT 376 x10^3/uL (140-400); RED BLOOD COUNT 4.86 x10^6/uL (3.50-5.40); RED CELL DISTRIBUTION WIDTH 16.9 % (11.5-14.5); WHITE BLOOD COUNT 10.8 x10^3/uL (4.0-11.0)
[2020-10-12] MEDS ORDERED: ONDANSETRON ODT 4 MG TAB.RAPDIS PO ONE ×2 (03:15→04:30)
[2020-10-12 03:20] VITALS: BP 160/84
[2020-10-12] MEDS ORDERED: SODIUM PHOSPHATES 19/7GM 133 ML ENEMA. PR ONE (03:45)
[2020-10-12] MEDS ORDERED: POLYETHYLENE GLYCOL 3350 17 GM PACKET. PO ONE ×2 (03:45)
[2020-10-12] MEDS ORDERED: diphenhydrAMINE HCL 25 MG CAPSULE PO ONE (04:30)
== END 2020-10-12 05:50 | disposition home or self-care (01) ==
LOC: EEVIPCON 01:29 → ER 01:29
DX: N92.0 Excessive and frequent menstruation with regular cycle (principal); F41.9 Anxiety disorder, unspecified; F17.200 Nicotine dependence, unspecified, uncomplicated; Z98.51 Tubal ligation status
CPT/HCPCS: 36415; 74018; 85025; 99284; Q0162

== ENCOUNTER 2020-10-22 18:05 | Inpatient (IN) | payer MEDICARE ==
[~2020-10-22] VITALS: Ht 167.6 cm; Wt 52.8 kg
[2020-10-22] MEDS ORDERED: HALOPERIDOL LACT 5 MG/ML VIAL. ONE (18:31)
--- NOTE | 2020-10-22 19:14 | PHYS DOC ---
Past History Past Medical History: Anxiety, Bipolar, Schizophrenia (RADHA PETERSON APRN) Past Medical History: Anxiety, Bronchitis, Depression, Schizophrenia Past Medical History Polysubstance Abuse (PRISCILLA ZHOU MD) Past Surgical History: Tubal ligation (RADHA PETERSON APRN) Smoking: Less than 1pk/day Alcohol Use: Occasionally Drug Use: Heroin, Methamphetamine (RADHA PETERSON APRN) Smoking: Cigarettes Alcohol Use: Occasionally Drug Use: Amphetamine, Marijuana, Methamphetamine, Opiates, Other (PRISCILLA ZHOU MD) Adult General Chief Complaint Chief Complaint: ALTERED MENTAL STATUS HPI HPI Patient is a 45-year-old female presents emergency department via EMS. EMS reports that they were called out to the patient's residence by PD because patient was on the front lawn rolling around and acting erratic. EMS states that the patient was very combative. Speaking in incomprehensible words upon their arrival. EMS also states that they know this patient quite well and the patient has a history of ingesting methamphetamines through her rectum using a turkey baster. EMS business information consultant stated he gave the patient 10 mg of Versed IV in order to get her calm down enough to restrain her on their EMS gurney and transported her here to the emergency department today. Related to patient's altered mental status and incomprehensible words, no further HPI could be obtained at this time. (RADHA PETERSON APRN) Review of Systems Review of Systems Patient unable to provide HPI for review of systems, HPI was provided by EMS. Constitutional: Denies fever or chills [] Eyes: Denies change in visual acuity, redness, or eye pain [] HENT: Denies nasal congestion or sore throat [] Respiratory: Denies cough or shortness of breath [] Cardiovascular: No additional information not addressed in HPI [] GI: Denies abdominal pain, nausea, vomiting, bloody stools or diarrhea [] : Denies dysuria or hematuria [] Musculoskeletal: Denies back pain or joint pain [] Integument: Denies rash or skin lesions [] Neurologic: Denies headache, focal weakness or sensory changes [] Endocrine: Denies polyuria or polydipsia [] All other systems were reviewed and found to be within normal limits, except as documented in this note. (RADHA PETERSON APRN) Family History Family History Unable to obtain family history related to patient's altered status (RADHA PETERSON APRN) Current Medications Current Medications Current medications unknown at this time related to patient's altered mental status. Current Medications Medications (Trade) Dose Ordered Sig/Cecilia Start Time Stop Time Status Last Admin Dose Admin Haloperidol Lactate (Haldol) 5 mg 1X ONCE 10/22/20 19:15 10/22/20 19:16 10/22/20 18:43 5 MG (RADHA PETERSON APRN) Allergies Allergies Allergies Coded Allergies Type Severity Reaction Last Updated Verified No Known Drug Allergies 04/16/18 No (RADHA PETERSON APRN) Physical Exam Physical Exam Constitutional: Patient is no apparent acute distress, is nontoxic in appearance, however patient is very sedated in appearance most likely related to EMS giving 10 mg Versed in route for transport to the emergency department today. HENT: Normocephalic, atraumatic, bilateral external ears normal, oropharynx moist, no oral exudates, nose normal, patient has normal gag reflex, patient is protecting airway. Patient has no teeth and oral cavity. Eyes: PERRLA, EOMI, conjunctiva normal, no discharge. Patient's pupils 2 mm bilateral prompt reaction to light stimuli Neck: Normal range of motion, no tenderness, supple, no stridor. Cardiovascular:Heart rate regular rhythm, no murmur auscultation, heart sounds S1-S2 Lungs & Thorax: Bilateral breath sounds clear to auscultation all lung thomason Abdomen: Bowel sounds normal, soft, no tenderness elicited with palpation in all 4 quadrants, no masses, no pulsatile masses. Skin: Warm, dry, no erythema, no rash. Back: No tenderness, no CVA tenderness. Extremities: No tenderness, no cyanosis, no clubbing, ROM intact, no edema. Neurologic: Patient is not alert, patient is sedated in appearance, patient arouses to verbal stimuli, patient uses incomprehensible words for conversation, however patient does respond immediately to questions. Psychologic: Patient affect currently abnormal, psychologic assessment deferred related to current status related to ingestion of methamphetamines, and EMS injection of benzodiazepines prior to arrival to emergency department. (RADHA PETERSON APRN) Current Patient Data Vital Signs Vital Signs Date Time Temp Pulse Resp B/P (MAP) Pulse Ox O2 Delivery O2 Flow Rate FiO2 10/22/20 18:50 90 40 145/97 (113) 99 Room Air (RADHA PETERSON APRN) EKG EKG EKG performed by ED nursing staff at 1954, normal sinus rhythm without ectopy, SD interval 0.120, QTc interval 0.493, no ACS or STEMI or ischemia noted, EKG interpreted by ED attending Dr. Zhou. (RADHA PETERSON APRN) Radiology/Procedures Radiology/Procedures [] (RADHA PETERSON APRN) Radiology/Procedures [address] [address] IMAGING REPORT Signed PATIENT: SHIMON VERA ACCOUNT: [id number] : 1975 LOCATION: ER AGE: 45 SEX: F EXAM STATUS: REG ER ORD. PHYSICIAN: RADHA PETERSON APRN REASON: ALTERED MENTAL STATUS, LEUKOCYTOSIS, AMPHETIMINE OVERDOSE PROCEDURE: KUB KUB, CHEST AP ONLY INDICATION: Reason: ALTERED MENTAL STATUS, LEUKOCYTOSIS, AMPHETIMINE OVERDOSE / Spl. Instructions: / History: . COMPARISON STUDY: None. FINDINGS: Lungs: Normal lung volume. No pulmonary mass or consolidation. The tracheobronchial tree and hilar structures are normal. Pleura: No pleural effusion or pneumothorax. Heart and Mediastinum: The cardiomediastinal silhouette is normal. The great vessels of the thorax are normal. Abdomen: Nonobstructive bowel gas pattern. No free air. IMPRESSION: No focal airspace disease. Nonobstructive bowel gas pattern. Electronically signed by: Mary Jane Roldan MD (10/23/2020 1:07 AM) [facility] DICTATED AND SIGNED BY: MARY JANE ROLDAN MD DATE: 10/23/20106 CC: RADHA PETERSON APRN; DAVID TANNER MD; PRISCILLA ZHOU MD ~MTH0 [address] [address] IMAGING REPORT Signed PATIENT: SHIMON VERA ACCOUNT: [id number] : 1975 LOCATION: ER AGE: 45 SEX: F EXAM STATUS: REG ER ORD. PHYSICIAN: RADHA PETERSON APRN REASON: ALTERED MENTAL STATUS PROCEDURE: CT HEAD AND CERVICAL SPINE WO CT HEAD AND CERVICAL SPINE WO Date: 10/22/2020 8:35 PM Clinical Indication: Reason: ALTERED MENTAL STATUS / Spl. Instructions: PATIENT FOUND CONFUSED COMBATIVE. WILDY THRASHING. / History: Comparison: None. Technique: 5 mm axial tomographic images were obtained of the head without contrast. These were viewed on brain and bone windows. CT imaging of the cervical spine was performed without contrast. Coronal and sagittal reformatted images were performed. One or more of the following dose reduction techniques were utilized: Automated exposure control (AEC), Adjustment of mA and/or kV according to patient size, Use of iterative reconstruction technique such as ASiR, CT scan done according to ALARA and image gently/image wisely HEAD FINDINGS: Motion artifact degrades image quality. The brain parenchyma is normal in attenuation. No intra- or extra-axial mass or fluid collection. No acute hemorrhage. The ventricles are normal in size, shape, and morphology. The verma-white matter junction is normal. The basilar cisterns are patent. The visualized paranasal sinuses are normal. The visualized portions of the orbits and globes are normal. The mastoid air cells are clear. No aggressive osseous lesion or fracture. CERVICAL SPINE FINDINGS: Motion artifact degrades image quality. Evaluation of the upper cervical spine is nondiagnostic. The mid/lower cervical spine is normally aligned. No acute mid/lower cervical spine fracture. The thyroid gland is normal. No cervical lymphadenopathy. The visualized aerodigestive tract is unremarkable. The visualized lung apices are clear. IMPRESSION: 1. Extensive patient motion degrades image quality. 2. No large territory verma-white loss or large acute hemorrhage. 3. Evaluation of the upper cervical spine is nondiagnostic. No acute mid/lower cervical spine fracture. Electronically signed by: Mary Jane Roldan MD (10/23/2020 12:28 AM) [facility] DICTATED AND SIGNED BY: MARY JANE ROLDAN MD DATE: 10/23/20 0028 CC: RADHA PETERSON APRN; DAVID TANNER MD; PRISCILLA ZHOU MD ~MTH0 0 (PRISCILLA ZHOU MD) Heart Score Risk Factors: Risk Factors: DM, Current or recent (<one month) smoker, HTN, HLP, family history of CAD, obesity. Risk Scores: Risk Factors: DM, Current or recent (<one month) smoker, HTN, HLP, family history of CAD, obesity. (RADHA PETERSON APRN) Course & Med Decision Making Course & Med Decision Making Pertinent Labs and Imaging studies reviewed. (See chart for details) Patient to the emergency department via EMS, EMS business information consultant reported that they were called to the patient's residence because she was rolling around and her front lawn on the grass and acting erratic. EMS business information consultant reported they were unable to get her onto the gurney to transport without for sedating with 10 mg of IV Versed. When patient arrived to the emergency department she was very sedated in appearance. Physical, neurological, psychiatric evaluation was limited related to patient's presentation. Patient was easily arousable to verbal stimuli, patient answers questions immediately, however unable to understand patient's verbal responses related to her incomprehensible words. Because it was reported by EMS that had ingested an unknown amount of methamphetamines using a turkey baster into her rectum today which prompted their call, and ER work-up consisted of an EKG, serum lab work, urinalysis with urine drug screen was initiated. While feeding nursing staff was obtaining ordered labs, patient became very combative, it was deemed dangerous for ED nursing staff to obtain ordered labs related to patient's physical actions, 5 mg of IV Haldol was given which calmed the patient's combative nature enough for ED nursing staff to obtain ordered labs. Initially EKG could not be obtained related to patient's erratic physical movement, patient was given 10 mg of Zyprexa IM as well as 50 mg of IV Benadryl which calmed the patient's physical actions down enough to perform an EKG. Related to patient's altered mental status, CT head and C-spine was ordered, patient was given 2 mg of IV Ativan prior to study, patient would not stop her physical movement for study, study delayed at this time. Subsequently labs reviewed, patient patient has a leukocytosis with a left shift, source unidentified at this time, other labs still pending, blood cultures x2 were ordered, lactated Ringer's wide open were ordered. Patient case discussed with ED attending Dr. Zhou, Dr. Zhou take over at this time. (RADHA PETERSON APRN) Course & Med Decision Making Patient required restraints for self protection and protection of the ED staff because of patient's mental status. Discussed presentation testing and treatment plan with Dr. Tanner. He requested patient be admitted as an observation status at this time. Critical Care - 90 min Impression: 1.Mental Status Change 2. Polysubstance abuse 3. SIRS 4. Dehydration 5. Leukocytosis 20.7- 87 Segs 6. Urinary tract infection 7. Elevated CRP 102.6 8. Elevated glucose 135 9. Elevated Lactic Acid 2.9 (PRISCILLA ZHOU MD) Dragon Disclaimer Dragon Disclaimer This electronic medical record was generated, in whole or in part, using a voice recognition dictation system. (RADHA PETERSON APRN) Departure Departure: Referrals: DAVID TANNER MD (PCP) Attending Co-Sign Attending Co-Sign The patient was seen and interviewed as well as examined at the bedside. The chart was reviewed. The case was discussed. Agree with the plan of care. (PRISCILLA ZHOU MD) RADHA PETERSON APRN Oct 22, 2020 19:14 PRISCILLA ZHOU MD Oct 22, 2020 22:51
[2020-10-22] MEDS ORDERED: HALOPERIDOL LACT 5 MG/ML VIAL. IVP ONE (19:15)
[2020-10-22 19:21] LABS: BARBITURATES NEG (NEG); BENZODIAZEPINES POS (NEG); CANNABINOIDS NEG (NEG); COCAINE NEG (NEG); METHADONE NEG (NEG); OPIATES POS (NEG); PHENCYCLIDINE NEG (NEG)
[2020-10-22 19:23] LABS: AMPHETAMINE/METHAMPHETAMINE POS (NEG)
[2020-10-22 19:38] LABS: BASO # 0.1 x10^3/uL (0.0-0.2); BASO % 1 % (0-3); EOS % 0 % (0-3); HEMATOCRIT 42.8 % (36.0-47.0); HEMOGLOBIN 13.8 g/dL (12.0-15.5); LYMPH % 5 % (24-48); MEAN CORPUSCULAR HEMOGLOBIN 28 pg (25-35); MEAN CORPUSCULAR HGB CONC 32 g/dL (31-37); MEAN CORPUSCULAR VOLUME 88 fL (79-100); MONO # 1.7 x10^3/uL (0.0-1.1); MONO % 8 % (0-9); NEUT # 17.9 x10^3uL (1.8-7.7); NEUT % 87 % (31-73); PLATELET COUNT 350 x10^3/uL (140-400); RED BLOOD COUNT 4.88 x10^6/uL (3.50-5.40); RED CELL DISTRIBUTION WIDTH 16.8 % (11.5-14.5); WHITE BLOOD COUNT 20.7 x10^3/uL (4.0-11.0)
[2020-10-22 19:43] LABS: ALBUMIN 3.6 g/dL (3.4-5.0); ALBUMIN/GLOBULIN RATIO 0.8 (1.0-1.7); CALCIUM 9.6 mg/dL (8.5-10.1); CREATININE 1.2 mg/dL (0.6-1.0); GFR 48.4; MAGNESIUM 1.9 mg/dL (1.8-2.4); POTASSIUM 4.1 mmol/L (3.5-5.1); TOTAL BILIRUBIN 0.7 mg/dL (0.2-1.0); TOTAL PROTEIN 7.9 g/dL (6.4-8.2)
[2020-10-22] MEDS ORDERED: OLANZapine IM 10 MG VIAL. IM ONE ×2 (20:00→22:45)
[2020-10-22] MEDS ORDERED: diphenhydrAMINE 50 MG/ML VIAL IVP ONE (20:00)
--- NOTE | 2020-10-22 20:03 | EKG ---
[address] [address] Test Date: 2020-10-22 Test Time: 19:54:27 Pat Name: SHIMON VERA Department: Room: Gender: F [employer] Referee: : 1975 Requested By: RADHA PETERSON Order Number: [id number] Reading MD: Bryan Flores Measurements Intervals [place] Rate: 93 P: -42 MS: 120 QRS: 60 QRSD: 94 T: 31 QT: 394 QTc: 493 Interpretive Statements SINUS RHYTHM PROLONGED QT Electronically Signed On 10-25-2020 10:50:50 [employer] by Bryan Flores
[2020-10-22 20:13] LABS: C REACTIVE PROTEIN 102.6 mg/L (0-3.3)
[2020-10-22] MEDS ORDERED: IV RINGERS SOLUTION,LACTATED 1,000 ML IV ONE (21:45)
[2020-10-22 21:55] LABS: BILIRUBIN,URINE SMALL (NEG); CLARITY,URINE HAZY; COLOR,URINE YELLOW; GLUCOSE,URINE NEG (NEG)
[2020-10-22 21:56] LABS: BACTERIA,URINE MANY /HPF (0-FEW); NITRITE,URINE NEG (NEG); WBC,URINE TNTC /HPF (0-4)
[2020-10-22 22:30] LABS: % LYMPHS 5 % (24-48); % MONOS 8 % (0-10); % SEGS 87 % (35-66); PLT ESTIMATE ADEQUATE (ADEQUATE)
[2020-10-22] MEDS ORDERED: cefTRIAXone IM 1 GM VIAL IM ONE (23:15)
[2020-10-23] VITALS (20 sets, daily range): BP systolic 139–180; BP diastolic 63–107
[2020-10-23] MEDS ORDERED: MIDAZOLAM HCL PF 5 MG/5 ML VIAL. IV ONE
--- NOTE | 2020-10-23 00:31 | RAD ---
CT HEAD AND CERVICAL SPINE WO Date: 10/22/2020 8:35 PM Clinical Indication: Reason: ALTERED MENTAL STATUS / Spl. Instructions: PATIENT FOUND CONFUSED COMBATIVE. WILDY THRASHING. / History: Comparison: None. Technique: 5 mm axial tomographic images were obtained of the head without contrast. These were viewed on brain and bone windows. CT imaging of the cervical spine was performed without contrast. Coronal and sagittal reformatted images were performed. One or more of the following dose reduction techniques were utilized: Automated exposure control (AEC), Adjustment of mA and/or kV according to patient size, Use of iterative reconstruction technique such as ASiR, CT scan done according to ALARA and image gently/image wisely HEAD FINDINGS: Motion artifact degrades image quality. The brain parenchyma is normal in attenuation. No intra- or extra-axial mass or fluid collection. No acute hemorrhage. The ventricles are normal in size, shape, and morphology. The verma-white matter junction is normal. The basilar cisterns are patent. The visualized paranasal sinuses are normal. The visualized portions of the orbits and globes are normal. The mastoid air cells are clear. No aggressive osseous lesion or fracture. CERVICAL SPINE FINDINGS: Motion artifact degrades image quality. Evaluation of the upper cervical spine is nondiagnostic. The mid/lower cervical spine is normally aligned. No acute mid/lower cervical spine fracture. The thyroid gland is normal. No cervical lymphadenopathy. The visualized aerodigestive tract is unremarkable. The visualized lung apices are clear. IMPRESSION: 1. Extensive patient motion degrades image quality. 2. No large territory verma-white loss or large acute hemorrhage. 3. Evaluation of the upper cervical spine is nondiagnostic. No acute mid/lower cervical spine fracture. Electronically signed by: Kj Roldan MD (10/23/2020 12:28 AM) [facility]
[2020-10-23] MEDS ORDERED: ONDANSETRON PF 4 MG/2 ML VIAL. IVP PRN (00:45)
[2020-10-23] MEDS ORDERED: IV RINGERS SOLUTION,LACTATED 1,000 ML IV SCH ×2 (00:45→01:00)
--- NOTE | 2020-10-23 01:09 | RAD ---
KUB, CHEST AP ONLY INDICATION: Reason: ALTERED MENTAL STATUS, LEUKOCYTOSIS, AMPHETIMINE OVERDOSE / Spl. Instructions: / History: . COMPARISON STUDY: None. FINDINGS: Lungs: Normal lung volume. No pulmonary mass or consolidation. The tracheobronchial tree and hilar structures are normal. Pleura: No pleural effusion or pneumothorax. Heart and Mediastinum: The cardiomediastinal silhouette is normal. The great vessels of the thorax are normal. Abdomen: Nonobstructive bowel gas pattern. No free air. IMPRESSION: No focal airspace disease. Nonobstructive bowel gas pattern. Electronically signed by: Kj Roldan MD (10/23/2020 1:07 AM) [facility]
[2020-10-23] MEDS ORDERED: IV NORMAL SALINE 1,000ML 1,000 ML IV ONE (01:45)
[2020-10-23] MEDS: IV RINGERS SOLUTION,LACTATED 1,000 ML IV SCH ×2 (04:30→18:18)
[2020-10-23 04:52] LABS: BASO # 0.1 x10^3/uL (0.0-0.2); BASO % 0 % (0-3); EOS % 0 % (0-3); HEMATOCRIT 39.5 % (36.0-47.0); HEMOGLOBIN 12.7 g/dL (12.0-15.5); LYMPH # 0.9 x10^3/uL (1.0-4.8); LYMPH % 5 % (24-48); MEAN CORPUSCULAR HEMOGLOBIN 28 pg (25-35); MEAN CORPUSCULAR HGB CONC 32 g/dL (31-37); MEAN CORPUSCULAR VOLUME 87 fL (79-100); MONO # 2.4 x10^3/uL (0.0-1.1); MONO % 13 % (0-9); NEUT # 15.1 x10^3uL (1.8-7.7); NEUT % 82 % (31-73); PLATELET COUNT 240 x10^3/uL (140-400); RED BLOOD COUNT 4.53 x10^6/uL (3.50-5.40); RED CELL DISTRIBUTION WIDTH 17.2 % (11.5-14.5); WHITE BLOOD COUNT 18.5 x10^3/uL (4.0-11.0)
[2020-10-23] MEDS ORDERED: IPRATRPIUM/ALBUTEROL 0.5/2.5MG 3 ML NEBU. ONE (04:55)
[2020-10-23 04:59] LABS: CALCIUM 8.9 mg/dL (8.5-10.1); CREATININE 0.8 mg/dL (0.6-1.0); GFR 77.2; POTASSIUM 3.2 mmol/L (3.5-5.1)
[2020-10-23] MEDS ORDERED: HALOPERIDOL LACT 5 MG/ML VIAL. IM PRN (06:30)
[2020-10-23] MEDS: POTASSIUM CHLORIDE 10MEQ 100 ML IV SCH ×4 (06:42→14:09)
[2020-10-23] MEDS ORDERED: ALBUTEROL SULFATE 2.5 MG/3 ML NEBU. NEB PRN (06:45)
[2020-10-23] MEDS ORDERED: CONTRAST GIVEN. MC PRN (07:15)
[2020-10-23] MEDS ORDERED: IPRATRPIUM/ALBUTEROL 0.5/2.5MG 3 ML NEBU. NEB SCH (08:00)
[2020-10-23] MEDS: diphenhydrAMINE 50 MG/ML VIAL IVP SCH ×4 (09:24→21:15)
[2020-10-23] MEDS: OLANZapine IM 10 MG VIAL. IM SCH (09:31)
[2020-10-23] MEDS: IOHEXOL 350 MG/ML 100 ML VIAL. IV ONE ×2 (09:52→11:30)
--- NOTE | 2020-10-23 10:05 | HP ---
ADMIT DATE: 10/23/2020 HISTORY OF PRESENT ILLNESS: A 45-year-old female with history of bipolar disease and schizophrenia, came in through the Emergency Room via EMS. She was reported at her residence of having a change in mental status. She was on the front wall and rolling around and acting very erratic. She was very combative. She was incomprehensible because of her words. The patient was just flailing around and the like. Apparently, the patient unfortunately has a history of ingesting methamphetamines through her rectum using a turkey baster. The patient was brought in, EMS had given her 10 mg of Versed in order to calm her down enough to restrain her on EMS gurney and transported her to the Emergency Room for further evaluation and treatment. The patient was still acting very erratic with very erratic movements of both her arms and legs and basically unable to respond appropriately to questions being asked of her. PAST MEDICAL HISTORY: As stated, bipolar, schizophrenia, colitis, GI problems, emphysema and respiratory disorders. She has had previous suicide attempts and substance abuse, apparently of multiple drugs besides the methamphetamine and also heroin. She smokes approximately a pack of cigarettes a day. SOCIAL HISTORY: There is no alcohol history per se. She also uses marijuana and opiates and other street drugs apparently. REVIEW OF SYSTEMS: Unable to get any type of history from her as she is basically uncontrolled and not able to express herself. PHYSICAL EXAMINATION: VITAL SIGNS: The patient's blood pressure approximately 150/90; respiratory rate up to 44, down to 16; pulse 108, down to in the 80s and 90s; oxygen saturation 99%. She is afebrile. She was not diaphoretic. HEENT: The patient's head was atraumatic, normocephalic. The patient has a hand appearance. She looks much older than her stated age of 45. Mouth and throat: Poor dentition. Eyes were somewhat dilated, but reactive to light. NECK: She was moving it. LUNGS: Diminished throughout. CARDIOVASCULAR: Tachycardic. ABDOMEN: Soft, nontender, no rebounding, no guarding. Scaphoid. EXTREMITIES: No clubbing, cyanosis, nor edema. There were possible track rubio in her antecubital area; none seen between the fingers or in the feet themselves. NEUROLOGIC: The patient is quite agitated, motor agitation, moving quite erratically both arms and legs, had to be restrained as a protection to herself and to others. The patient was reviewed within 1 hour of her admission. LABORATORY DATA: Demonstrated white count of over 20,000 with the rest of the differential basically unremarkable. The chemistries were unremarkable except for an elevated lactic acid of 2.9, low potassium of 3.2, put on electrolyte replacement. C-reactive protein 102.6. The patient's drug screen shows opiates, amphetamines, methamphetamines and benzos. The patient's urine showed 11-20 reds and too numerous to count whites. The patient had an elevated D-dimer, fibrinogen was elevated at 432. The patient was given IV Ativan. At one time, was given 1 dose of Haldol because of her uncontrolled nature and harm to herself and others. IMPRESSION: Methamphetamine intoxication, use of opioids, other drug abuse; sepsis, pyelonephritis, schizophrenia, bipolar disease, dehydration. PLAN: The patient continued to be monitored carefully. The patient had a CT scan of her head and neck unremarkable. Chest x-ray showed no focal airspace abnormalities and there was nonobstructive bowel gas pattern noted. In any case, the patient was admitted to the Intensive Care Unit with 1:1 restraints as necessary to help protect herself and others from her agitation. The patient otherwise needed to be monitored carefully, monitored for any signs of increase in blood pressure, placed on Rocephin and Levaquin for now until we get cultures back for her sepsis with IV fluids and we will continue to monitor her for her methamphetamine possible withdrawal as well as her sepsis, probable pyelonephritis, agitation and the like. DAVID TANNER MD DR: HAROON/agatha JOB#: [id number] / [id number]
[2020-10-23] MEDS ORDERED: cloNIDine TTS-2 1 PATCH PATCH TD SCH (15:30)
[2020-10-23] MEDS ORDERED: dilTIAZem 25 MG/5 ML VIAL IVP ONE ×2 (19:00→21:15)
[2020-10-23] MEDS ORDERED: dilTIAZem VIAL 125 MG in IV NORMAL SALINE 100ML 100 ML IV PRN (21:00)
[2020-10-23] MEDS ORDERED: cefTRIAXone IM 1 GM VIAL IM SCH (21:00)
[2020-10-24] VITALS (12 sets, daily range): BP systolic 139–171; BP diastolic 80–115
[2020-10-24 06:14] LABS: CREATININE 0.6 mg/dL (0.6-1.0); GFR 107.6
[2020-10-24 06:17] LABS: BASO % 0 % (0-3); EOS % 0 % (0-3); HEMATOCRIT 39.4 % (36.0-47.0); HEMOGLOBIN 12.9 g/dL (12.0-15.5); LYMPH # 1.2 x10^3/uL (1.0-4.8); LYMPH % 10 % (24-48); MEAN CORPUSCULAR HEMOGLOBIN 28 pg (25-35); MEAN CORPUSCULAR HGB CONC 33 g/dL (31-37); MEAN CORPUSCULAR VOLUME 87 fL (79-100); MONO # 1.1 x10^3/uL (0.0-1.1); MONO % 9 % (0-9); NEUT # 9.3 x10^3uL (1.8-7.7); NEUT % 80 % (31-73); PLATELET COUNT 268 x10^3/uL (140-400); RED BLOOD COUNT 4.55 x10^6/uL (3.50-5.40); WHITE BLOOD COUNT 11.6 x10^3/uL (4.0-11.0)
[2020-10-24 06:26] LABS: POTASSIUM 2.9 mmol/L (3.5-5.1)
[2020-10-24] MEDS: diphenhydrAMINE 50 MG/ML VIAL IVP SCH ×4 (07:34→20:11)
[2020-10-24] MEDS: POTASSIUM CHLORIDE 20MEQ 100 ML IV SCH ×4 (07:34→13:00)
[2020-10-24] MEDS: OLANZapine IM 10 MG VIAL. IM SCH (09:00)
[2020-10-24] MEDS: POTASSIUM CHLORIDE 30 MEQ in IV DEXTROSE 5 %-0.45 % NACL 1,000 ML IV SCH ×3 (09:16→20:15)
[2020-10-24] MEDS ORDERED: PHENAZOPYRIDINE 200 MG TABLET. PO ONE (10:15)
[2020-10-24] MEDS ORDERED: PHENAZOPYRIDINE 200 MG TABLET. PO PRN (10:15)
[2020-10-24 14:04] LABS: CALCIUM 8.9 mg/dL (8.5-10.1); CREATININE 0.8 mg/dL (0.6-1.0); GFR 77.2; POTASSIUM 3.4 mmol/L (3.5-5.1)
--- NOTE | 2020-10-24 17:33 | PN ---
DATE: 10/23/2020 SUBJECTIVE: A 45-year-old with methamphetamine intoxication. The patient has quieted down somewhat. We have had to reduce her restraints to a lower level if she is a little bit more controlled. OBJECTIVE: VITAL SIGNS: Her blood pressure, as would be expected, has gone up and we are going to give her Cardizem 30-60 mg every 4-6 hours to control her blood pressure as well as a Catapres patch as well. Otherwise, the patient's blood pressure 146/100, respiratory rate 16, pulse 90, afebrile. GENERAL: The patient is arousable, but still very much unconscious, wiggling in bed, but not as much as she has been. She seems to be more controlled. LUNGS: The patient's lungs are diminished. CARDIOVASCULAR: Tachycardic. ABDOMEN: Soft, nontender. The patient continues to be monitored for the multiplicity of medical problems. IMPRESSION: Methamphetamine intoxication, withdrawal from methamphetamine, essential hypertension, sepsis, urinary tract infection, hypokalemia. Continue with IV antibiotic therapy. Wait any culture reports coming back in and make further evaluation later this evening. PLAN: Continue on the Cardizem, possibly even a Cardizem infusion along with a Catapres and maybe nitro paste as well. DAVID TANNER MD DR: HAROON/agatha JOB#: [id number] / [id number]
[2020-10-25 05:40] VITALS: BP 149/107
[2020-10-25 06:26] LABS: BASO % 0 % (0-3); EOS # 0.1 x10^3/uL (0.0-0.7); EOS % 2 % (0-3); HEMATOCRIT 42.3 % (36.0-47.0); HEMOGLOBIN 13.7 g/dL (12.0-15.5); LYMPH # 1.6 x10^3/uL (1.0-4.8); LYMPH % 19 % (24-48); MEAN CORPUSCULAR HEMOGLOBIN 28 pg (25-35); MEAN CORPUSCULAR HGB CONC 33 g/dL (31-37); MEAN CORPUSCULAR VOLUME 87 fL (79-100); MONO # 0.9 x10^3/uL (0.0-1.1); MONO % 12 % (0-9); NEUT # 5.5 x10^3uL (1.8-7.7); NEUT % 67 % (31-73); PLATELET COUNT 368 x10^3/uL (140-400); RED BLOOD COUNT 4.85 x10^6/uL (3.50-5.40); RED CELL DISTRIBUTION WIDTH 17.5 % (11.5-14.5); WHITE BLOOD COUNT 8.2 x10^3/uL (4.0-11.0)
[2020-10-25 06:34] LABS: CREATININE 0.6 mg/dL (0.6-1.0); GFR 107.6; POTASSIUM 3.5 mmol/L (3.5-5.1)
[2020-10-25] MEDS: OLANZapine IM 10 MG VIAL. IM SCH (07:31)
[2020-10-25] MEDS: diphenhydrAMINE 50 MG/ML VIAL IVP SCH ×2 (07:34→13:00)
[2020-10-25 09:00] VITALS: BP 156/105
[2020-10-25] MEDS ORDERED: LACTOBACILLUS RHAMNOSUS GG 1 CAPSULE. PO SCH (09:00)
[2020-10-25] MEDS ORDERED: FLUoxetine HCL 20 MG CAPSULE PO SCH (09:00)
[2020-10-25] MEDS ORDERED: busPIRone 10 MG TABLET. PO SCH ×2 (09:00→09:30)
[2020-10-25] MEDS ORDERED: PRENATAL MULTIVITAMIN TABLET. PO SCH (09:00)
[2020-10-25] MEDS ORDERED: SMZ/TMP 800/160MG TABLET. PO SCH (09:30)
[2020-10-25] MEDS ORDERED: SMZ/TMP 800/160MG TABLET. PO ONE (09:30)
[2020-10-25 09:31] VITALS: BP 153/107
--- NOTE | 2020-10-25 09:57 | PN ---
DATE: SUBJECTIVE: A 45-year-old female with a methamphetamine overdose and intoxication. The patient has made some progress today. Apparently less agitation and apparently was able to eat some breakfast that the nurses fed. She is reduced from a 1:1 since she is better behaved. OBJECTIVE: VITAL SIGNS: Blood pressure 155/100, respiratory rate 20, pulse in the 80s and it is not quite clear that she had pulses in the 20s if that was accurate, I am not quite sure at 1 time today, but certainly remained in the 80s, placed on oral Cardizem for her blood pressure, which has seemed to be under better control. GENERAL: The patient is afebrile. She is more alert, but still very confused, very lethargic, but overall improved. LUNGS: Diminished. CARDIOVASCULAR: Regular sinus rhythm. ABDOMEN: Soft, nontender. EXTREMITIES: No clubbing, cyanosis, nor edema. IMPRESSION: Therefore, methamphetamine intoxication and other drugs of abuse, sepsis, pyelonephritis, schizophrenia, bipolar disease, dehydration, hypertension, sinus tachycardia. PLAN: Continue on IV antibiotic therapy. Continue to monitor closely in the ICU, but does not need 1:1. She will continue on oral diltiazem and IV antibiotics of Rocephin and Levaquin. DAVID TANNER MD DR: HAROON/agatha JOB#: [id number] / [id number]
[2020-10-25] MEDS ORDERED: ACETAMINOPHEN 500 MG TABLET PO PRN (12:15)
[2020-10-25] MEDS ORDERED: LITH300C PO (13:22)
[2020-10-25] MEDS ORDERED: Smz/Tmp 800/160MG PO (13:22)
[2020-10-25] MEDS ORDERED: LOXA25CA PO (13:22)
[2020-10-25] MEDS ORDERED: BUSP10TA PO (13:22)
[2020-10-25] MEDS ORDERED: DILT240C33 PO (13:22)
[2020-10-25] MEDS ORDERED: OLAN15TA7 PO (13:22)
== END 2020-10-25 13:55 | disposition left against medical advice (07) | DRG 917 ==
LOC: ER 18:05 → ICU 10-23 00:45 → OBSVTOIN 10-23 17:43
PROVIDERS: ADMIT Family Medicine; ATTEND Family Medicine
DX: T43.621A Poisoning by amphetamines, accidental (unintentional), initial encounter (principal); A41.9 Sepsis, unspecified organism; N12 Tubulo-interstitial nephritis, not specified as acute or chronic; F15.23 Other stimulant dependence with withdrawal; E86.0 Dehydration; E87.6 Hypokalemia; F20.9 Schizophrenia, unspecified; F31.9 Bipolar disorder, unspecified; I10 Essential (primary) hypertension; F41.9 Anxiety disorder, unspecified; F19.10 Other psychoactive substance abuse, uncomplicated; J43.9 Emphysema, unspecified; Y92.89 Other specified places as the place of occurrence of the external cause; Z87.891 Personal history of nicotine dependence; Z91.5 Personal history of self-harm; Z98.51 Tubal ligation status
CPT/HCPCS: 36415; 70450; 71045; 72125; 74018; 80048; 80053; 80307; 81001; 82553; 83605; 83615; 83735; 84484; 85007; 85025; 85049; 85379; 85384; 85610; 85730; 86140; 87040; 87077; 87086; 87186; 93005; 96361; 96372; 96374; 96375; 96376; 99291; G0378; G0379; J0696; J1200; J1630; J1956; J2060; J2250; J3480; J3490; J7120; Q9967; 97530

== ENCOUNTER 2020-11-17 15:11 | Emergency (ER) | payer MEDICARE ==
[~2020-11-17] VITALS: Ht 167.6 cm; Wt 52.8 kg
[~2020-11-17 15:11] MED LIST changes: +DILT240C33 PO; +Smz/Tmp 800/160MG PO
--- NOTE | 2020-11-17 15:22 | PHYS DOC ---
Past History Past Medical History: Anxiety, Bronchitis, Depression, Schizophrenia Past Surgical History: Tubal ligation Smoking: Cigarettes Alcohol Use: Occasionally Drug Use: Amphetamine, Marijuana, Methamphetamine, Opiates, Other Adult General Chief Complaint Chief Complaint: OVERDOSE HPI HPI Patient is a 45-year-old female who presents via EMS for illicit drug abuse. Reports doing typical amount of IV heroin approximately 1-1/2 hours prior to arrival. Patient reports that friend who typically does not hang out with her was concerned given that he is not used to seeing patient under the influence of heroin and and advised her to come to the hospital for evaluation. EMS was subsequently called. Patient hemodynamically stable on arrival and ambulatory to ER room. She is asymptomatic at present, admits being under the influence of heroin. No trauma, falls, syncope, vision changes, chest pain, shortness of breath, abdominal pain, urinary symptoms, changes in motor or sensory function, no neurologic deficits Review of Systems Review of Systems Fourteen body systems of review of systems have been reviewed. See HPI for pertinent positives and negative responses, other mccabe all other systems are negative, non-pertinent or non-contributory Allergies Allergies Allergies Coded Allergies Type Severity Reaction Last Updated Verified No Known Drug Allergies 04/16/18 No Physical Exam Physical Exam Constitutional: Pt is oriented to person, place, and time. Pt appears older than stated age and under the influence HEENT: Head: Normocephalic and atraumatic. External ears unremarkable Conjunctivae and EOM are normal. Pupils are equal, round, and reactive to light, both are pinpoint. Oropharynx is clear and dry with dentures in place No hematomas or lacerations or abrasions to face or scalp OP clear, no blood, no malocclusion, dentition intact Nares clear, no nasal septal hematoma Midface stable Neck: C-spine midline nontender, no step-offs Cardiovascular: Normal rate, regular rhythm and normal heart sounds. Pulmonary/Chest: Effort normal and breath sounds normal. No respiratory distress. No wheezes. CTA bilaterally Abdominal: Soft. Bowel sounds are normal. Pt exhibits no distension. There is no tenderness. Musculoskeletal: No bony tenderness to extremities, no deformities, full ROM extremities Chest wall stable Pelvis stable and non-tender No vertebral TTP and spine without stepoffs Neurological: Pt is alert and oriented to person, place, and time. Moving all extremities willfully, able to wiggle all fingers and toes Alert and oriented x 3 Sensation grossly intact Skin: Skin is warm and dry. No abrasions, no lacerations Psychiatric: Behavior is appropriate for situation EKG EKG [] Radiology/Procedures Radiology/Procedures [] Heart Score HEART Score for Chest Pain: HEART Score for Chest Pain Response (Comments) Value History Slighlty/Non-Suspicious 0 Age >45 - < 65 1 Risk Factors 1 or 2 Risk Factors 1 Total 2 Risk Factors: Risk Factors: DM, Current or recent (<one month) smoker, HTN, HLP, family history of CAD, obesity. Risk Scores: Risk Factors: DM, Current or recent (<one month) smoker, HTN, HLP, family history of CAD, obesity. Course & Med Decision Making Course & Med Decision Making Discussed with the patient all findings and diagnostic testing. I discussed most likely diagnosis of acute intoxication of heroin. Patient grossly asymptomatic while in ER but was slightly hypotensive with classic signs of methamphetamine intoxication and so, 1 L IV normal saline fluid and 0.4 mg Narcan administered with significant improvement in patient presentation. She was monitored in our ER for greater than 2 hours with continual improvement in overall presentation. Ultimately, patient remained asymptomatic without any other signs or symptoms of disease. I discussed utility of laboratory and radiographs while in ER setting but joint decision to defer this. I advised illicit drug cessation. I stressed need for close outpatient follow-up to review today's ER visit. Strict return precautions were also discussed at length with good understanding by patient. Patient voiced understanding and agreement with the plan. Patient knows to come back for repeat evaluation if concerning signs or symptoms present prior to outpatient follow-up. Hemodynamically stable, ambulatory and well- appearing at time of disposition. Dragon Disclaimer Dragon Disclaimer This electronic medical record was generated, in whole or in part, using a voice recognition dictation system. Departure Departure: Impression: Primary Impression: Methamphetamine intoxication Disposition: 01 DC HOME SELF CARE/HOMELESS Condition: IMPROVED Referrals: DAVID TANNER MD (PCP) Patient Instructions: Drug Abuse and Addiction-[facility], Drug Abuse, FAQs Additional Instructions: You were seen for drug abuse. You should stop using drugs. Please refer to the resource sheet for help with stopping your addiction. You should return to the ED if you develop any new or concerning symptoms. Please follow-up with your primary care physician first thing this upcoming Saturday to discuss your ER visit today JUVE MATTHEWS DO Nov 17, 2020 15:22
[2020-11-17] MEDS ORDERED: NALOXONE 0.4 MG/ML VIAL. IV ONE (16:45)
[2020-11-17] MEDS ORDERED: ONDANSETRON PF 4 MG/2 ML VIAL. IVP ONE (16:45)
[2020-11-17] MEDS ORDERED: IV NORMAL SALINE 1,000ML 1,000 ML IV ONE (16:45)
[2020-11-17 18:00] VITALS: BP 97/66
== END 2020-11-17 19:03 | disposition home or self-care (01) ==
LOC: ER 15:11
DX: F15.129 Other stimulant abuse with intoxication, unspecified (principal); F41.9 Anxiety disorder, unspecified; F32.9 Major depressive disorder, single episode, unspecified; F20.9 Schizophrenia, unspecified; F17.210 Nicotine dependence, cigarettes, uncomplicated; F12.90 Cannabis use, unspecified, uncomplicated; Z98.51 Tubal ligation status
CPT/HCPCS: 96361; 96374; 96375; 99284; J2310; J2405; J7030

== ENCOUNTER 2020-12-13 17:01 | Emergency (ER) | payer MEDICARE ==
[~2020-12-13] VITALS: Ht 167.6 cm; Wt 52.0 kg
[2020-12-13] MEDS ORDERED: ZIPR20CA2 PO (17:11)
--- NOTE | 2020-12-13 17:11 | PHYS DOC ---
Past History Past Medical History: Anxiety, Bronchitis, Depression, Schizophrenia Past Surgical History: Tubal ligation Smoking: Cigarettes Alcohol Use: Occasionally Drug Use: Amphetamine, Marijuana, Methamphetamine, Opiates, Other General Adult EDM: Chief Complaint: OTHER COMPLAINTS HPI: HPI: Patient is a 45-year-old female who presented to ER for an injection of Geodon due to anxiety and schizophrenia problem. Patient is on Geodon 60 mg daily, she has been out of her medication for several days. She is scheduled to see her psychiatrist at the [facility] tomorrow. She denies suicidal ideation, denies homicidal ideation. Review of Systems: Review of Systems: Constitutional: Denies fever or chills Eyes: Denies change in visual acuity HENT: Denies nasal congestion or sore throat Respiratory: Denies cough or shortness of breath Cardiovascular: Denies chest pain or edema GI: Denies abdominal pain, nausea, vomiting, bloody stools or diarrhea : Denies dysuria Musculoskeletal: Denies back pain or joint pain Integument: Denies rash Neurologic: Denies headache, focal weakness or sensory changes Endocrine: Denies polyuria or polydipsia Lymphatic: Denies swollen glands Psychiatric: Positive for depression anxiety Current Medications: Current Meds: Current Medications Medications (Trade) Dose Ordered Sig/Cecilia Start Time Stop Time Status Last Admin Dose Admin Ziprasidone (Geodon Im) 20 mg 1X ONCE 12/13/20 17:15 12/13/20 17:16 UNV Allergies: Allergies: Allergies Coded Allergies Type Severity Reaction Last Updated Verified No Known Drug Allergies 04/16/18 No Physical Exam: PE: Constitutional: Well developed, well nourished, no acute distress, non-toxic appearance. [] HENT: Normocephalic, atraumatic, bilateral external ears normal, oropharynx moist, no oral exudates, nose normal. [] Eyes: PERRLA, EOMI, conjunctiva normal, no discharge. [] Neck: Normal range of motion, no tenderness, supple, no stridor. [] Cardiovascular:Heart rate regular rhythm, no murmur [] Lungs & Thorax: Bilateral breath sounds clear to auscultation [] Abdomen: Bowel sounds normal, soft, no tenderness, no masses, no pulsatile masses. [] Skin: Warm, dry, no erythema, no rash. [] Back: No tenderness, no CVA tenderness. [] Extremities: No tenderness, no cyanosis, no clubbing, ROM intact, no edema. [] Neurologic: Alert and oriented X 3, normal motor function, normal sensory function, no focal deficits noted. [] Psychologic: Patient is anxious and tearful, denies SI or HI EKG: EKG: [] Radiology/Procedures: Radiology/Procedures: [] Heart Score: Risk Factors: Risk Factors: DM, Current or recent (<one month) smoker, HTN, HLP, family history of CAD, obesity. Risk Scores: Score 0 - 3: 2.5% MACE over next 6 weeks - Discharge Home Score 4 - 6: 20.3% MACE over next 6 weeks - Admit for Clinical Observation Score 7 - 10: 72.7% MACE over next 6 weeks - Early Invasive Strategies Course & Med Decision Making: Course & Med Decision Making Pertinent Labs and Imaging studies reviewed. (See chart for details) [] Dragon Disclaimer: Dragon Disclaimer: This electronic medical record was generated, in whole or in part, using a voice recognition dictation system. Departure Departure: Impression: Primary Impression: Anxiety disorder Additional Impression: Medication refill Disposition: 01 DC HOME SELF CARE/HOMELESS Condition: STABLE Referrals: DAVID TANNER MD (PCP) [facility] up with [facility] SCHEDUL[facility] Patient Instructions: Anxiety and Panic Attacks, Medication Refill, Emergency Department Additional Instructions: Thank you for visiting our Emergency Department. We appreciate you trusting us with your care. If any additional problems come up don't hesitate to return to visit us. Please follow up with your primary care provider so they can plan additional care if needed and know about the problem that you had. If symptoms worsen come back to the Emergency Department. Any concerning symptoms that start such as chest pain, shortness of air, weakness or numbness on one side of the body, running high fevers or any other concerning symptoms return to the ER. Scripts Ziprasidone Hcl (GEODON) 20 Mg Capsule 3 CAP PO DAILY for AGITATION, ANXIETY for 10 Days, #30 CAP 2 Refills Prov: DAVID EL DO 12/13/20 DAVID EL DO Dec 13, 2020 17:11
[2020-12-13] MEDS: ZIPRASIDONE IM 20 MG VIAL. IM ONE (17:22)
[2020-12-13 17:37] VITALS: BP 132/78
== END 2020-12-13 17:35 | disposition home or self-care (01) ==
LOC: ER 17:01
DX: F41.9 Anxiety disorder, unspecified (principal); Z76.0 Encounter for issue of repeat prescription; F32.9 Major depressive disorder, single episode, unspecified; F20.9 Schizophrenia, unspecified; F17.210 Nicotine dependence, cigarettes, uncomplicated
CPT/HCPCS: 96372; 99283; J3486

== ENCOUNTER 2020-12-13 19:35 | Emergency (ER) | payer MEDICARE ==
[~2020-12-13] VITALS: Ht 167.6 cm; Wt 52.0 kg
[~2020-12-13 19:35] MED LIST changes: +ZIPR20CA2 PO
[2020-12-13 20:59] VITALS: BP 111/60
--- NOTE | 2020-12-13 21:10 | PHYS DOC ---
Past History Past Medical History: Anxiety, Bronchitis, Depression, Schizophrenia Additional Past Medical Histor: Bipolar, schizoaffective disorder Past Surgical History: Tubal ligation Smoking: Cigarettes Alcohol Use: Occasionally Drug Use: Amphetamine, Marijuana, Methamphetamine, Opiates, Other Adult General Chief Complaint Chief Complaint: ALTERED MENTAL STATUS [facility] Patient is a 45-year-old female with a past medical history of schizophrenia, anxiety and depression who presents to the emergency department from home for apparent excessive sleepiness and roommate worried that she was ill. Patient was actually in the emergency department earlier in the day requesting that her Geodon be given as [facility] but is out of her medications and has not gone back until tomorrow. The daytime ED doctor gave her her home dose of Geodon and patient was discharged home. Per EMS and roommate shortly a fter going home she fell asleep and remained felt she was too hard to wake up. In route EMS got a normal blood sugar and noted that patient was arousable but appeared sleepy. Shortly after coming to the emergency department patient was awake and alert, asking for something to eat with a GCS of 15. Patient inquiring why she was back in the hospital as there was nothing wrong with her and she would like to go home. Denies any headache, dizziness, chest pain, shortness of breath, abdominal pain, nausea, vomiting. Denies any numbness/weakness/tingling. Denies SI, HI, hallucinations. Review of Systems Review of Systems Review of systems otherwise unremarkable outside of [facility]. Allergies Allergies Allergies Coded Allergies Type Severity Reaction Last Updated Verified No Known Drug Allergies 12/13/20 No Physical Exam Physical Exam Constitutional: Well developed, well nourished, no acute distress, non-toxic appearance. [] HENT: Normocephalic, atraumatic, bilateral external ears normal, oropharynx moist, no oral exudates, nose normal. [] Eyes: PERRLA, EOMI, conjunctiva normal, no discharge. [] Neck: Normal range of motion, no tenderness, supple, no stridor. [] Cardiovascular:Heart rate regular rhythm, no murmur [] Lungs & Thorax: Bilateral breath sounds clear to auscultation [] Abdomen: soft, no tenderness, no masses, no pulsatile masses. [] Skin: Warm, dry, no erythema, no rash. [] Back: No tenderness, Extremities: No tenderness, no cyanosis, no clubbing, ROM intact, no edema. [] Neurologic: Alert and oriented X 3, normal motor function, normal sensory function, no focal deficits noted. [] Psychologic: Affect normal, judgement normal, mood normal. [] Current Patient Data Vital Signs Vital Signs Date Time Temp Pulse Resp B/P (MAP) Pulse Ox O2 Delivery O2 Flow Rate FiO2 12/13/20 20:59 98.1 93 16 111/60 (77) 100 Room Air EKG EKG [] Radiology/Procedures Radiology/Procedures [] Heart Score Risk Factors: Risk Factors: DM, Current or recent (<one month) smoker, HTN, HLP, family history of CAD, obesity. Risk Scores: Risk Factors: DM, Current or recent (<one month) smoker, HTN, HLP, family history of CAD, obesity. Course & Med Decision Making Course & Med Decision Making Patient is a 45-year-old female, with schizophrenia, anxiety and depression who presents back to the emergency department with excessive sleepiness per EMS and roommate Vital signs not concerning. Blood sugar normal. On assessment patient was easily aroused, woke up and asked why she was back in the hospital. Explained the situation to the patient. Patient stated she is not SI, HI or verónica lucinating, states that she was just extremely tired and did not want to get up. Patient asking for something to eat and drink. Patient ambulated without issue on her own and requesting to be discharged home with her son. Discussed with patient the situation and advised to follow-up with her primary care physician first thing in the morning, keep her appointment in 2 days with the [facility] and return to the emergency department immediately with any new or concerning symptoms. Also advised against any illegal substance use or alcohol. Patient was pleasant, cooperative, verbalized understanding and agreed with plan of discharge. [] Dragon Disclaimer Dragon Disclaimer This electronic medical record was generated, in whole or in part, using a voice recognition dictation system. Departure Departure: Impression: Primary Impression: Altered mental status, unspecified Disposition: 01 DC HOME SELF CARE/HOMELESS Condition: GOOD Referrals: DAVID TANNER MD (PCP) Patient Instructions: Altered Mental Status Additional Instructions: Please read all the attached information. Please take your medications only as prescribed and do not use any other illegal substances, or alcohol. Please make sure to eat and drink normally and get normal sleep. Please make sure to follow-up with your primary care physician for same tomorrow to discuss ED visit and set up post ER visit follow-up. Be sure to keep your appointment in 2 days with the [facility] to discuss your ED visit and need for medication refill and management. MARIO MCBRIDE MD Dec 13, 2020 21:10
== END 2020-12-13 21:15 | disposition home or self-care (01) ==
LOC: ER 19:35
DX: R41.82 Altered mental status, unspecified (principal); F41.9 Anxiety disorder, unspecified; F25.9 Schizoaffective disorder, unspecified; F31.9 Bipolar disorder, unspecified; F17.210 Nicotine dependence, cigarettes, uncomplicated
CPT/HCPCS: 99283

== ENCOUNTER 2021-01-21 12:50 | Inpatient (IN) | payer MEDICARE ==
[~2021-01-21] VITALS: Ht 167.6 cm; Wt 54.9 kg
[2021-01-21 14:07] LABS: BASO # 0.1 x10^3/uL (0.0-0.2); BASO % 1 % (0-3); EOS # 0.1 x10^3/uL (0.0-0.7); EOS % 1 % (0-3); HEMATOCRIT 40.4 % (36.0-47.0); HEMOGLOBIN 13.2 g/dL (12.0-15.5); LYMPH # 3.1 x10^3/uL (1.0-4.8); LYMPH % 22 % (24-48); MEAN CORPUSCULAR HEMOGLOBIN 30 pg (25-35); MEAN CORPUSCULAR HGB CONC 33 g/dL (31-37); MEAN CORPUSCULAR VOLUME 93 fL (79-100); MONO # 1.4 x10^3/uL (0.0-1.1); MONO % 10 % (0-9); NEUT # 9.4 x10^3uL (1.8-7.7); NEUT % 67 % (31-73); PLATELET COUNT 385 x10^3/uL (140-400); RED BLOOD COUNT 4.35 x10^6/uL (3.50-5.40); RED CELL DISTRIBUTION WIDTH 15.2 % (11.5-14.5); WHITE BLOOD COUNT 14.2 x10^3/uL (4.0-11.0)
[2021-01-21 14:21] LABS: CALCIUM 9.4 mg/dL (8.5-10.1); CREATININE 0.8 mg/dL (0.6-1.0); GFR 77.2; POTASSIUM 4.8 mmol/L (3.5-5.1)
[2021-01-21 14:33] LABS: BACTERIA,URINE 0 /HPF (0-FEW); BILIRUBIN,URINE NEG (NEG); CLARITY,URINE CLEAR; COLOR,URINE YELLOW; GLUCOSE,URINE NEG (NEG); HYALINE CASTS, URINE OCC /HPF; NITRITE,URINE NEG (NEG); SQUAMOUS EPITHELIAL CELL,UR MANY /LPF; UROBILINOGEN,URINE 0.2 mg/dL (0.2 mg/dL)
[2021-01-21 14:34] LABS: ALBUMIN 3.7 g/dL (3.4-5.0); AMPHETAMINE/METHAMPHETAMINE POS (NEG); BARBITURATES NEG (NEG); BENZODIAZEPINES NEG (NEG); CANNABINOIDS NEG (NEG); COCAINE NEG (NEG); DIRECT BILIRUBIN 0.1 mg/dL (0.0-0.2); METHADONE NEG (NEG); OPIATES POS (NEG); PHENCYCLIDINE NEG (NEG); TOTAL BILIRUBIN 0.3 mg/dL (0.2-1.0); TOTAL PROTEIN 7.4 g/dL (6.4-8.2)
[2021-01-21] MEDS ORDERED: LORazepam 1 MG TABLET ONE (15:28)
--- NOTE | 2021-01-21 15:29 | PHYS DOC ---
Past History Past Medical History: Anxiety, Bronchitis, Depression, Schizophrenia Additional Past Medical Histor: Bipolar, schizoaffective disorder (RADHA PETERSON APRN) Past Surgical History: Tubal ligation (RADHA PETERSON APRN) Smoking: Cigarettes Alcohol Use: Occasionally Drug Use: Amphetamine, Marijuana, Methamphetamine, Opiates, Other (RADHA PETERSON APRN) Adult General Chief Complaint Chief Complaint: DRUG ABUSE HPI HPI Patient is a 45-year-old female presents emergency department accompanied by her son whose chief complaint is altered mental status after heroin use today. HPI was given by patient's son, patient only responds with incomprehensible words. Patient son states that his mother has had a long history of drug abuse, stating her drugs of choice are methamphetamines and heroin. Patient son states that he believes his mother was at a drug house all night, stating that someone where she was staying and doing drugs with called him on his cell phone saying that there was fear that his mother may have taken too much heroin or had some bad heroin and asked him to come pick her up. Patient's son states that he went to pick her up and brought her straight here to the emergency department. Patient son states that his mother is homeless, her last residence was with his grandparents who have kicked her out of the house as of 2 days ago. Patient son was unable to give any other health history of the patient. Patient has been seen here several times in the emergency department, has a past medical history of anxiety, bronchitis, depression, schizophrenia, tubal ligation, daily cigarette smoker, occasional alcohol use, abuses amphetamines marijuana methamphetamines opiates and heroin. (RADHA PETERSON APRN) Review of Systems Review of Systems Limited review of systems from patient's son only related to patient's presentation. 14 body systems of review of systems have been reviewed. See HPI for pertinent positives and negative responses, otherwise all other systems are negative, nonpertinent or noncontributory. (RADHA PETERSON APRN) Current Medications Current Medications Current Medications Medications (Trade) Dose Ordered Sig/Cecilia Start Time Stop Time Status Last Admin Dose Admin Lorazepam (Ativan) 2 mg 1X ONCE 01/21/21 15:30 01/21/21 15:31 (RADHA PETERSON APRN) Allergies Allergies Allergies Coded Allergies Type Severity Reaction Last Updated Verified No Known Drug Allergies 12/13/20 No (RADHA PETERSON APRN) Physical Exam Physical Exam Constitutional: Patient is Waterproof Coma Scale 12, response to speech, incomprehensible words, obeys commands. HENT: Normocephalic, atraumatic, bilateral external ears normal, oropharynx moist, no oral exudates, nose normal. Eyes: PERRLA, EOMI, conjunctiva normal, no discharge. Neck: Normal range of motion, no tenderness, supple, no stridor. Cardiovascular:Heart rate regular rhythm, no murmur Lungs & Thorax: Bilateral breath sounds clear to auscultation Abdomen: Bowel sounds normal, soft, no tenderness, no masses, no pulsatile masses. Skin: Warm, dry, no erythema, no rash. Back: No tenderness, no CVA tenderness. Extremities: No tenderness, no cyanosis, no clubbing, ROM intact, no edema. Neurologic: Patient not alert for neurologic exam. Patient's Kirit Coma Scale 12, eye-opening response equals 3, verbal response equals 3, motor response equals 6. Psychologic: Patient is GCS 12, psychologic exam deferred. (RADHA PETERSON APRN) Current Patient Data Vital Signs Vital Signs Date Time Temp Pulse Resp B/P (MAP) Pulse Ox O2 Delivery O2 Flow Rate FiO2 01/21/21 13:24 86 24 111/60 (77) 89 Room Air Lab Results Laboratory Tests Test 01/21/21 13:45 White Blood Count 14.2 x10^3/uL (4.0-11.0) H Red Blood Count 4.35 x10^6/uL (3.50-5.40) Hemoglobin 13.2 g/dL (12.0-15.5) Hematocrit 40.4 % (36.0-47.0) Mean Corpuscular Volume 93 fL (79-100) Mean Corpuscular Hemoglobin 30 pg (25-35) Mean Corpuscular Hemoglobin Concent 33 g/dL (31-37) Red Cell Distribution Width 15.2 % (11.5-14.5) H Platelet Count 385 x10^3/uL (140-400) Neutrophils (%) (Auto) 67 % (31-73) Lymphocytes (%) (Auto) 22 % (24-48) L Monocytes (%) (Auto) 10 % (0-9) H Eosinophils (%) (Auto) 1 % (0-3) Basophils (%) (Auto) 1 % (0-3) Neutrophils # (Auto) 9.4 x10^3uL (1.8-7.7) H Lymphocytes # (Auto) 3.1 x10^3/uL (1.0-4.8) Monocytes # (Auto) 1.4 x10^3/uL (0.0-1.1) H Eosinophils # (Auto) 0.1 x10^3/uL (0.0-0.7) Basophils # (Auto) 0.1 x10^3/uL (0.0-0.2) Urine Collection Type Unknown Urine Color Yellow Urine Clarity Clear Urine pH 6.0 Urine Specific [place] 1.015 Urine Protein Neg (NEG-TRACE) Urine Glucose (UA) Neg mg/dL (NEG) Urine Ketones (Stick) Neg mg/dL (NEG) Urine Blood Large (NEG) Urine Nitrite Neg (NEG) Urine Bilirubin Neg (NEG) Urine Urobilinogen Dipstick 0.2 mg/dL (0.2 mg/dL) Urine Leukocyte Esterase Neg (NEG) Urine RBC 1-2 /HPF (0-2) Urine WBC 1-4 /HPF (0-4) Urine Squamous Epithelial Cells Many /LPF Urine Bacteria 0 /HPF (0-FEW) Urine Hyaline Casts Occ /HPF Urine Mucus Slight /LPF Sodium Level 142 mmol/L (136-145) Potassium Level 4.8 mmol/L (3.5-5.1) Chloride Level 106 mmol/L (98-107) Carbon Dioxide Level 26 mmol/L (21-32) Anion Gap 10 (6-14) Blood Urea Nitrogen 27 mg/dL (7-20) H Creatinine 0.8 mg/dL (0.6-1.0) Estimated GFR (Cockcroft-Gault) 77.2 BUN/Creatinine Ratio 34 (6-20) H Glucose Level 98 mg/dL (70-99) Lactic Acid Level 1.2 mmol/L (0.4-2.0) Calcium Level 9.4 mg/dL (8.5-10.1) Total Bilirubin 0.3 mg/dL (0.2-1.0) Direct Bilirubin 0.1 mg/dL (0.0-0.2) Aspartate Amino Transferase (AST) 36 U/L (15-37) Alanine Aminotransferase (ALT) 34 U/L (14-59) Alkaline Phosphatase 87 U/L (46-116) Ammonia 36 mcmol/L (11-34) H Total Protein 7.4 g/dL (6.4-8.2) Albumin 3.7 g/dL (3.4-5.0) Albumin/Globulin Ratio 1.0 (1.0-1.7) Urine Opiates Screen Pos (NEG) Urine Methadone Screen Neg (NEG) Urine Barbiturates Neg (NEG) Urine Phencyclidine Screen Neg (NEG) Urine Amphetamine/Methamphetamine Pos (NEG) Urine Benzodiazepines Screen Neg (NEG) Urine Cocaine Screen Neg (NEG) Urine Cannabinoids Screen Neg (NEG) Urine Ethyl Alcohol Neg (NEG) (RADHA PETERSON APRN) EKG EKG EKG performed at 1905 by house respiratory therapy staff, shows a normal sinus rhythm without ectopy with a heart rate of 78 bpm, AL interval 0.116, QTc interval 0.462, no acute STEMI, no ACS, no acute ischemia appreciated, EKG interpreted by ED attending physician Dr. Zhou. (RADHA PETERSON APRN) Radiology/Procedures Radiology/Procedures PATIENT: SHIMON VERA ACCOUNT: [id number] : 1975 LOCATION: ER AGE: 45 SEX: F EXAM STATUS: REG ER ORD. PHYSICIAN: RADHA PETERSON APRN REASON: HYPOXIA PROCEDURE: CHEST AP ONLY EXAM: XR CHEST 1V INDICATION: Reason: HYPOXIA / Spl. Instructions: / History: . TECHNIQUE: Single view COMPARISON: Chest x-ray of 10/22/2020 FINDINGS: The heart size is normal. The great vessels appear unremarkable. There is no hilar or mediastinal mass. The lungs are clear. There is no pleural effusion or pneumothorax. There are no significant osseous abnormalities. IMPRESSION: No active cardiopulmonary disease. Electronically signed by: Eliane Her MD (01/21/2021 7:04 PM) [facility] [place] DICTATED AND SIGNED BY: ELIANE HER MD DATE: 01/21/21 190 CC: RADHA PETERSON APRN; DAVID TANNER MD; PRISCILLA ZHOU MD ~MTH0 0 (RADHA PETERSON APRN) Heart Score Risk Factors: Risk Factors: DM, Current or recent (<one month) smoker, HTN, HLP, family history of CAD, obesity. Risk Scores: Risk Factors: DM, Current or recent (<one month) smoker, HTN, HLP, family history of CAD, obesity. (RADHA PETERSON APRN) Course & Med Decision Making Course & Med Decision Making Pertinent Labs and Imaging studies reviewed. (See chart for details) 45-year-old female, vital signs reviewed, was brought to emergency department with concerns of drug overdose on heroin. Patient's initial Waterproof Coma Scale was 12, patient is maintaining her own airway, ED plan to draw labs to rule out infectious process, urinalysis assay, urine drug screen, this is most likely a heroin overdose as patient has been here several times in the past with similar presentation. ED plan to monitor lab values, patient's vital signs, when patient pietro up will reevaluate and consider psychiatric evaluation. Patient placed on constant one-to-one observation pending patient sobriety. Patient becoming very anxious, now speaking in comprehensible words however must be redirected constantly, patient was given 2 mg Ativan for anxiolytic, one-to-one constant observation continues. After 5-hour observation, related to patient's erratic movement, patient was given 10 mg Zyprexa and 50 mg Benadryl IM so ABG, chest x-ray, and EKG could be performed. Patient's vital signs have noted a decreasing oxygen saturation, ABG was drawn and results are concerning for hypoxia, patient placed on 2 L per nasal cannula O2. Patient continues to arouse easily to verbal stimuli however patient is not able to care for herself at this time, it is not safe for the patient to be discharged home at this time. Will call patient's primary care physician Dr. Delarosa for recommendation of admission. Called and discussed patient case with patient's primary care physician Dr. Delarosa who agreed to admit the patient to the ICU with the diagnosis of drug overdose, hypoxia, elevated ammonia level with the information he was given. Patient was secured a ICU bed, Dr. Delarosa has assumed patient care at this time. (RADHA PETERSON APRN) Dragon Disclaimer Dragon Disclaimer This electronic medical record was generated, in whole or in part, using a voice recognition dictation system. (RADHA PETERSON APRN) Departure Departure: Impression: Primary Impression: Drug overdose Additional Impressions: Hypoxia Increased ammonia level Disposition: 09 ADMITTED INPT THIS HOSP (Admit to ICU to Dr. Delarosa) Admitting Physician: David Tanner (RADHA PETERSON APRN) Condition: GUARDED Referrals: DAVID TANNER MD (PCP) Attending Signature Attending Signature I have participated in the care of this patient and I have reviewed and agree with all pertinent clinical information above including history, exam, and recommendations. (PRISCILLA ZHOU MD) Problem Qualifiers Primary Impression: Drug overdose Encounter type: initial encounter Injury intent: undetermined intent Qualified Codes: T50.904A - Poisoning by unspecified drugs, medicaments and biological substances, undetermined, initial encounter RADHA PETERSON APRN Jan 21, 2021 15:29 PRISCILLA ZHOU MD Jan 22, 2021 09:28
[2021-01-21] MEDS ORDERED: LORazepam 1 MG TABLET PO ONE (15:30)
[2021-01-21] MEDS ORDERED: diphenhydrAMINE 50 MG/ML VIAL ONE (18:32)
[2021-01-21] MEDS ORDERED: OLANZapine IM 10 MG VIAL. IM ONE ×2 (18:33→18:45)
[2021-01-21] MEDS ORDERED: diphenhydrAMINE 50 MG/ML VIAL IM ONE (18:45)
--- NOTE | 2021-01-21 19:07 | RAD ---
EXAM: XR CHEST 1V INDICATION: Reason: HYPOXIA / Spl. Instructions: / History: . TECHNIQUE: Single view COMPARISON: Chest x-ray of 10/22/2020 FINDINGS: The heart size is normal. The great vessels appear unremarkable. There is no hilar or mediastinal mass. The lungs are clear. There is no pleural effusion or pneumothorax. There are no significant osseous abnormalities. IMPRESSION: No active cardiopulmonary disease. Electronically signed by: Aundrea Her MD (01/21/2021 7:04 PM) [facility] [place]
[2021-01-21 19:17] LABS: BGAS PH 7.33 (7.35-7.45)
[2021-01-21] MEDS ORDERED: IV NORMAL SALINE 1,000ML 1,000 ML IV ONE (20:00)
--- NOTE | 2021-01-21 20:38 | NUR ---
The patient, SHIMON VERA, 45 y/o, F admitted by DAVID TANNER MD, was given written information regarding hospital policies, unit procedures and contact persons. Valuables were checked and logged. Pt is asleep. Will continue to monitor.
[2021-01-21 20:45] VITALS: BP 103/59
[2021-01-21] MEDS ORDERED: LURA20TA PO (21:50)
[2021-01-21] MEDS ORDERED: LITH150C PO (21:50)
[2021-01-21] MEDS ORDERED: ZIPR20CA3 PO (21:50)
[2021-01-21 22:03] VITALS: BP 90/59
[2021-01-21 23:03] VITALS: BP 92/68
[2021-01-22] VITALS (13 sets, daily range): BP systolic 85–116; BP diastolic 50–63
--- NOTE | 2021-01-22 02:23 | EKG ---
[address] [address] Test Date: 2021-01-21 Test Time: 19:06:11 Pat Name: SHIMON VERA Department: Room: [facility] 1 Gender: F Director Orange: AKANKSHA : 1975 Requested By: RADHA PETERSON Order Number: [id number] Reading MD: Measurements Intervals [place] Rate: 78 P: 48 MN: 116 QRS: 74 QRSD: 88 T: 63 QT: 402 QTc: 462 Interpretive Statements SINUS RHYTHM NORMAL ECG RI6.02 No previous ECG available for comparison
[2021-01-22] MEDS: IV NORMAL SALINE 1,000ML 1,000 ML IV SCH ×3 (13:12→22:46)
[2021-01-22] MEDS: busPIRone 10 MG TABLET. PO SCH (20:50)
[2021-01-22] MEDS ORDERED: OLANZapine ZYDIS 15 MG TAB.RAPDIS PO SCH (21:00)
--- NOTE | 2021-01-23 01:41 | HP ---
ADMIT DATE: HISTORY OF PRESENT ILLNESS: A 45-year-old female came in through the Emergency Room with some documentation that the patient had been using heroin and she has an altered mental status. The patient has unfortunately a long history of alcohol abuse or drug use including heroin and methamphetamines. The patient states the patient has been in a drug house whole night and apparently doing drugs, methamphetamine and heroin. In any case, the patient is markedly lethargic and had change in mental status as a result of this drug overdose with street drugs. The patient was admitted to the hospital for further evaluation and treatment. PAST MEDICAL HISTORY: Includes emphysema, colitis, respiratory disorders, schizophrenia, bipolar disorder, depression, previous suicide attempts, substance abuse, meth, heroin, and THC. The patient also smokes heavily. ALLERGIES: None known. FAMILY HISTORY: Not available. SOCIAL HISTORY: The patient, as noted above, is a full code along with her drug use and smoking, about a [id number] history of smoking. REVIEW OF SYSTEMS: The patient is very lethargic, not able to give much of a history, but seems to deny chest pain or shortness of breath presently. Denies any nausea, vomiting, abdominal pain, but is markedly lethargic. PHYSICAL EXAMINATION: GENERAL: The patient on exam is a white female, frail appearing, looking much older than stated age. The patient is somewhat alert, but very lethargic, just kind of moaning and answering questions yes and no. VITAL SIGNS: Blood pressure 93/60, respiratory rate 20, pulse 80, afebrile. HEENT: Otherwise, eyes are PERRLA. Pupils constricted. Mouth and throat: Poor dentition. NECK: Supple. LUNGS: Diminished, poor movement of air. CARDIOVASCULAR: Regular sinus rhythm. ABDOMEN: Soft, nontender. EXTREMITIES: No clubbing, cyanosis, or edema. Some mild musculoskeletal atrophy consistent with poor dietary intake. LABORATORY DATA: The patient's toxicology showed heroin and methamphetamine use at the present time. Chemistries showed a slight elevation of ammonia level, ____. Blood gases, ____ venous stick, showed an oxygen saturation of approximately 89%. Chest x-ray was unremarkable with no signs of any infection there. IMPRESSION: Intentional drug use with street drugs, heroin and methamphetamine use, mild hypoxia, lethargy, change in mental status. PLAN: Continue to monitor the patient accordingly and we will monitor for any signs of withdrawal from the heroin and methamphetamine use. DAVID TANNER MD DR: HAROON/agatha JOB#: [id number] / [id number]
[2021-01-23] MEDS: IV NORMAL SALINE 1,000ML 1,000 ML IV SCH ×2 (03:47→07:15)
[2021-01-23] MEDS ORDERED: PANTOPRAZOLE 40 MG TABLET. PO SCH (07:30)
[2021-01-23] MEDS: busPIRone 10 MG TABLET. PO SCH (08:46)
--- NOTE | 2021-01-23 13:02 | NUR ---
PT REFUSED 1100 VITAL SIGNS
--- NOTE | 2021-01-23 17:20 | NUR ---
Patient refusing all aspects of care upon discharge. Left with all belongings in aggressive not wanting to leave mood. Called son Johnathon to come and pick her up and he did. Johnathon apologized profusely for the way his mother was acting.
== END 2021-01-23 16:40 | disposition home or self-care (01) | DRG 917 ==
LOC: ER 12:50 → ICU 19:15
PROVIDERS: ADMIT Family Medicine; ATTEND Family Medicine
DX: T40.1X2A Poisoning by heroin, intentional self-harm, initial encounter (principal); G93.41 Metabolic encephalopathy; F25.9 Schizoaffective disorder, unspecified; F31.9 Bipolar disorder, unspecified; J43.9 Emphysema, unspecified; F15.90 Other stimulant use, unspecified, uncomplicated; F11.90 Opioid use, unspecified, uncomplicated; F41.9 Anxiety disorder, unspecified; F17.210 Nicotine dependence, cigarettes, uncomplicated; Z98.51 Tubal ligation status; Z91.5 Personal history of self-harm; Z59.0 Homelessness; Y92.89 Other specified places as the place of occurrence of the external cause
CPT/HCPCS: 36415; 36600; 71045; 80053; 80076; 80307; 81001; 82140; 82803; 83605; 84443; 85025; 93005; 96360; 96372; 99406; J1200; J3490; 99285-25; J7030

== ENCOUNTER 2021-07-02 20:53 | Emergency (ER) | payer MEDICARE ==
[~2021-07-02] VITALS: Ht 165.1 cm; Wt 56.6 kg
[~2021-07-02 20:53] MED LIST changes: +LITH150C PO; +LURA20TA PO; +ZIPR20CA3 PO
--- NOTE | 2021-07-02 21:14 | PHYS DOC ---
Past History Past Medical History: Anxiety, Bronchitis, Depression, Schizophrenia Additional Past Medical Histor: Bipolar, schizoaffective disorder Past Surgical History: Tubal ligation Smoking: Cigarettes Alcohol Use: Occasionally Drug Use: Amphetamine, Marijuana, Methamphetamine, Opiates, Other General Adult HPI: HPI: ".. I am sorry... "I fucked up again..." " I did a couple points..." Heroin .. just couple points.. " " I am sorry".. " My fucking family... are going to be so mad ... at me".. Fuck..Fuck... Mother Fuck.." Patient is a 45 year old female who presents with above hx and complaints narcotic overdose. Patient reportedly used "2 points" or two dime bag dosages of heroin. Patient reportedly became unconscious and quit breathing. Paramedics were called. However patient respiratory status had improved by time of paramedics arrived and patient did not require Narcan. Patient however was transported to the emergency department because of drug history of respiratory failure and minimal alertness. Patient recently seen in the emergency room for a drug overdose. Does have a plan to follow with [facility] and court ordered inpatient drug treatment plan that is scheduled to start in Jul. Cannot enter plan earlier because of waiting list. Patient has history of chronic polysubstance abuse that is exacerbated by life stressful periods. Patient has been seen in the emergency departments several times polysubstance abuse and drug overdoses. Patient does have past medical history of anxiety, bronchitis, depression, schizophrenia, tubal ligation, tobacco use, marijuana use, alcohol abuse,. Patient's primary drug of choice is amphetamine, marijuana and meth amphetamine. How patient reportedly using heroin tonight when she developed respiratory failure. Patient had no recent travel. No specific ill contacts. No history of trauma. No history of fever or chills. No history of suicidal or homicidal ideation. Patient normally follows with Dr. Tanner, Review of Systems: Review of Systems: Constitutional: Denies fever or chills Eyes: Denies change in visual acuity HENT: Denies nasal congestion or sore throat Respiratory: Denies cough or shortness of breath Cardiovascular: Denies chest pain or edema GI: Denies abdominal pain, nausea, vomiting, bloody stools or diarrhea : Denies dysuria Musculoskeletal: Denies back pain or joint pain Integument: Denies rash Neurologic: Denies headache, focal weakness or sensory changes Endocrine: Denies polyuria or polydipsia Lymphatic: Denies swollen glands Psychiatric: Complains of depression or anxiety and her polysubstance use Family History: Family History: Noncontributory to presentation. Patient currently homeless and has been staying in half-way. Has alienated family members including her son and parents.. Only has 1 cousin that we will talk to her currently because of her continued polysubstance abuse Current Medications: Current Meds: See nursing for home meds Allergies: Allergies: Allergies Coded Allergies Type Severity Reaction Last Updated Verified No Known Drug Allergies 12/13/20 No Physical Exam: PE: Constitutional: in acute emotional distress, appears under the influence of a narcotic. HENT: Normocephalic, atraumatic, bilateral external ears normal, oropharynx moist, no oral exudates, nose normal. Poor dentition Eyes: PERRLA, EOMI, conjunctiva normal, no discharge. [] Neck: Normal range of motion, no tenderness, supple, no stridor. [] Cardiovascular:Heart rate regular rhythm, no murmur [] Lungs & Thorax: Bilateral breath sounds equal with scattered wheezes and some right upper lung field rhonchi on auscultation [] Abdomen: Bowel sounds very decreased, soft, no tenderness, no masses, no pulsatile masses. [] Skin: Warm, dry, no erythema, no rash. Multiple tattoos. Does have findings of injection rubio Back: No tenderness, no CVA tenderness. [] Extremities: No tenderness, no cyanosis, no clubbing, ROM intact, no edema. [] Neurologic: Alert and oriented X 3, will move all extremities on request, does have distal sensory, no focal deficits noted. [] Psychologic: Affect extremely agitated, judgement normal, mood depressed but denies suicidal ideation EKG: EKG: My interpretation EKG shows a sinus rhythm at 62 bpm there is no findings of acute morphology. Normal EKG. Time of this EKG was 111 hours [] Radiology/Procedures: Radiology/Procedures: [][address] [address] IMAGING REPORT Signed PATIENT: SHIMON VERA ACCOUNT: [id number] : 1975 LOCATION: ER AGE: 45 SEX: F EXAM STATUS: REG ER ORD. PHYSICIAN: PRISCILLA NAZARIO MD REASON: dyspnea PROCEDURE: PORTABLE CHEST 1V Exam Date: 07/02/2021 10:19 PM XR CHEST 1V Indication: Reason: dyspnea / Spl. Instructions: / History: . Comparison: January 21, 2021 FINDINGS/ IMPRESSION: The cardiac silhouette and pulmonary vasculature are within normal limits. There is no focal consolidation, pleural effusion or pneumothorax. The visualized osseous structures are intact. Electronically signed by: Jose Angel Chapman MD (07/02/2021 10:38 PM) [facility] DICTATED AND SIGNED BY: JOSE ANGEL CHAPMAN MD DATE: 07/02/212237 CC: DAVID TANNER MD; PRISCILLA NAZARIO MD ~MTH0 0 Heart Score: C/O Chest Pain: No HEART Score for Chest Pain: HEART Score for Chest Pain Response (Comments) Value History Slighlty/Non-Suspicious 0 ECG Normal 0 Age < 45 0 Risk Factors 1 or 2 Risk Factors 1 Total 1 Risk Factors: Risk Factors: DM, Current or recent (<one month) smoker, HTN, HLP, family history of CAD, obesity. Risk Scores: Score 0 - 3: 2.5% MACE over next 6 weeks - Discharge Home Score 4 - 6: 20.3% MACE over next 6 weeks - Admit for Clinical Observation Score 7 - 10: 72.7% MACE over next 6 weeks - Early Invasive Strategies Course & Med Decision Making: Course & Med Decision Making Pertinent Labs and Imaging studies reviewed. (See chart for details) Patient mental status gradually improved during ED stay evaluation. Patient encouraged to avoid polysubstance abuse. Patient encouraged to keep follow-up for the planned inpatient drug treatment program in July. Patient follow-up primary care. Patient return if any concerns. Review ED work-up with primary especially findings of elevated LFTs. Impression: 1. Narcotic drug overdose 2. Respiratory failure-drug induced 3. Elevated LFTs-AST 63, ALT 149, alk phos 121 ( Hx of elevated ammonia levels) 4. Elevated magnesium level 2.7 5. History of schizoaffective disorder [] Rosalie Disclaimer: Rosalie Disclaimer: This electronic medical record was generated, in whole or in part, using a voice recognition dictation system. Departure Departure: Referrals: DAVID TANNER MD (PCP) Rosalie Disclaimer This chart was dictated in whole or in part using Voice Recognition software in a busy, high-work load, and often noisy Emergency Department environment. It ma y contain unintended and wholly unrecognized errors or omissions. Dragon Disclaimer This chart was dictated in whole or in part using Voice Recognition software in a busy, high-work load, and often noisy Emergency Department environment. It may contain unintended and wholly unrecognized errors or omissions. Dragon Disclaimer This chart was dictated in whole or in part using Voice Recognition software in a busy, high-work load, and often noisy Emergency Department environment. It may contain unintended and wholly unrecognized errors or omissions. PRISCILLA NAZARIO MD Jul 02, 2021 21:14
[2021-07-02] MEDS ORDERED: IV RINGERS SOLUTION,LACTATED 1,000 ML IV SCH (21:30)
--- NOTE | 2021-07-02 22:41 | RAD ---
Exam Date: 07/02/2021 10:19 PM XR CHEST 1V Indication: Reason: dyspnea / Spl. Instructions: / History: . Comparison: January 21, 2021 FINDINGS/ IMPRESSION: The cardiac silhouette and pulmonary vasculature are within normal limits. There is no focal consolidation, pleural effusion or pneumothorax. The visualized osseous structures are intact. Electronically signed by: Cortez Chapman MD (07/02/2021 10:38 PM) [facility]
[2021-07-02 23:27] LABS: BASO % 0 % (0-3); EOS # 0.1 x10^3/uL (0.0-0.7); EOS % 1 % (0-3); HEMATOCRIT 37.4 % (36.0-47.0); HEMOGLOBIN 12.2 g/dL (12.0-15.5); LYMPH # 1.1 x10^3/uL (1.0-4.8); LYMPH % 11 % (24-48); MEAN CORPUSCULAR HEMOGLOBIN 32 pg (25-35); MEAN CORPUSCULAR HGB CONC 33 g/dL (31-37); MEAN CORPUSCULAR VOLUME 97 fL (79-100); MONO # 0.9 x10^3/uL (0.0-1.1); MONO % 8 % (0-9); NEUT # 8.2 x10^3uL (1.8-7.7); NEUT % 79 % (31-73); RED BLOOD COUNT 3.87 x10^6/uL (3.50-5.40); RED CELL DISTRIBUTION WIDTH 15.9 % (11.5-14.5); WHITE BLOOD COUNT 10.3 x10^3/uL (4.0-11.0)
[2021-07-02 23:29] LABS: CALCIUM 8.4 mg/dL (8.5-10.1); CREATININE 0.9 mg/dL (0.6-1.0); GFR 67.4; POTASSIUM 4.2 mmol/L (3.5-5.1)
[2021-07-02 23:34] LABS: PLATELET COUNT 9 x10^3/uL (140-400)
[2021-07-02 23:36] LABS: ALBUMIN 3.5 g/dL (3.4-5.0); DIRECT BILIRUBIN 0.1 mg/dL (0.0-0.2); MAGNESIUM 2.7 mg/dL (1.8-2.4); TOTAL BILIRUBIN 0.3 mg/dL (0.2-1.0); TOTAL PROTEIN 7.2 g/dL (6.4-8.2)
[2021-07-03] LABS: PLT ESTIMATE DECREASED (ADEQUATE)
--- NOTE | 2021-07-03 01:35 | EKG ---
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
[2021-07-03 02:54] LABS: BASO # 0.1 x10^3/uL (0.0-0.2); BASO % 1 % (0-3); EOS # 0.2 x10^3/uL (0.0-0.7); EOS % 1 % (0-3); HEMATOCRIT 41.2 % (36.0-47.0); HEMOGLOBIN 13.3 g/dL (12.0-15.5); LYMPH % 14 % (24-48); MEAN CORPUSCULAR HEMOGLOBIN 31 pg (25-35); MEAN CORPUSCULAR HGB CONC 32 g/dL (31-37); MEAN CORPUSCULAR VOLUME 95 fL (79-100); MONO # 1.4 x10^3/uL (0.0-1.1); MONO % 10 % (0-9); NEUT # 10.2 x10^3uL (1.8-7.7); NEUT % 73 % (31-73); PLATELET COUNT 357 x10^3/uL (140-400); RED BLOOD COUNT 4.32 x10^6/uL (3.50-5.40); RED CELL DISTRIBUTION WIDTH 15.2 % (11.5-14.5)
[2021-07-03] MEDS ORDERED: ACETAMINOPHEN 500 MG TABLET PO ONE (03:45)
[2021-07-03 06:00] VITALS: BP 112/62
[2021-07-05 21:06] LABS: HCV ULTRA QUANT PCR 24700 IU/mL (.)
== END 2021-07-03 06:19 | disposition home or self-care (01) ==
LOC: ER 20:53
DX: T40.601A Poisoning by unspecified narcotics, accidental (unintentional), initial encounter (principal); J96.90 Respiratory failure, unspecified, unspecified whether with hypoxia or hypercapnia; R79.89 Other specified abnormal findings of blood chemistry; F25.9 Schizoaffective disorder, unspecified; F41.9 Anxiety disorder, unspecified; F12.10 Cannabis abuse, uncomplicated; F15.10 Other stimulant abuse, uncomplicated; Z98.51 Tubal ligation status; Y92.9 Unspecified place or not applicable
CPT/HCPCS: 36415; 71045; 80048; 80076; 82550; 83690; 83735; 84443; 84484; 85025; 85379; 85610; 85730; 86705; 86709; 86803; 87340; 87522; 93005; 96360; 99285; J7120

== ENCOUNTER 2021-11-15 13:46 | Emergency (ER) | payer MEDICARE ==
[~2021-11-15] VITALS: Ht 165.1 cm; Wt 56.6 kg
[2021-11-15 13:55] VITALS: BP 116/45
--- NOTE | 2021-11-15 13:57 | PHYS DOC ---
Past History Past Medical History: Anxiety, Bronchitis, Depression, Schizophrenia Additional Past Medical Histor: Bipolar, schizoaffective disorder Past Surgical History: Tubal ligation Smoking: Cigarettes Alcohol Use: Occasionally Drug Use: Amphetamine, Marijuana, Methamphetamine, Opiates, Other General Adult EDM: Chief Complaint: BACK PAIN OR INJURY HPI: HPI: Patient is a 46-year-old female who presents to the emergency department for lumbar back pain that is chronic for her, the pain does radiate down her legs.. Patient was recently released from [facility] and was seen at the [facility]. The ambulance was called for patient the [facility] because she was manic and ran away from the center. Patient is manic, resistive to care, aggravated and cursing at ER staff. Patient denies any suicidal or homicidal ideation. Her vital signs are stable and she is in no acute distress. Review of Systems: Review of Systems: Constitutional: denies fevers Respiratory: denies cough Musculoskeletal: See HPI Psychiatric: See HPI Allergies: Allergies: Allergies Coded Allergies Type Severity Reaction Last Updated Verified No Known Drug Allergies 12/13/20 No Physical Exam: PE: Constitutional: Well developed, well nourished, no acute distress, non-toxic appearance. [] HENT: Normocephalic, atraumatic, bilateral external ears normal, oropharynx moist, no oral exudates, nose normal. [] Eyes: PERRL, EOMI, conjunctiva normal, no discharge. [] Neck: Normal range of motion, no tenderness, supple, no stridor. [] Cardiovascular: Normal peripheral perfusion Lungs & Thorax: Normal work of breathing, no tachypnea Abdomen: Soft and flat Skin: Warm, dry, no erythema, no rash. [] Back: Lumbar paraspinal tenderness, normal range of motion, Extremities: No tenderness, no cyanosis, no clubbing, ROM intact, no edema. [] Neurologic: Alert and oriented X 3, normal motor function, normal sensory function, no focal deficits noted. [] Psychologic: Affect normal, judgement normal, mood normal. [] Current Patient Data: Labs: Laboratory Tests Test 11/15/21 14:00 11/15/21 14:05 Urine Collection Type Unknown Urine Color Yellow Urine Clarity Hazy Urine pH 7.5 Urine Specific [place] 1.020 Urine Protein Trace Urine Glucose (UA) Neg mg/dL Urine Ketones (Stick) Neg mg/dL Urine Blood Small Urine Nitrite Pos Urine Bilirubin Neg Urine Urobilinogen Dipstick 0.2 mg/dL Urine Leukocyte Esterase Large Bedside Urine HCG, Qualitative hcg negative Current Medications Medications (Trade) Dose Ordered Sig/Cecilia Route PRN Reason Start Time Stop Time Status Last Admin Dose Admin Ketorolac Tromethamine (Toradol Im) 60 mg 1X ONCE IM 11/15/21 14:00 11/15/21 14:01 DC EKG: EKG: [] Radiology/Procedures: Radiology/Procedures: []PROCEDURE: LUMBAR SPINE 2-3V Exam Date: 11/15/2021 1:55 PM XR LUMBAR SPINE 2-3V Indication: Reason: back pain / Spl. Instructions: / History: . FINDINGS/ IMPRESSION: Anatomic alignment is maintained without spondylolisthesis. The vertebral body heights are maintained without evidence of compression fracture. Mild disc space narrowing seen at multiple levels with small osteophytes. Degenerative changes in the SI joints. Soft tissues are normal. Electronically signed by: Jose Angel Chapman MD (11/15/2021 2:22 PM) [id number] DICTATED AND SIGNED BY: JOSE ANGEL CHAPMAN MD DATE: 11/15/21 1422 CC: DAVID TANNER MD; SAYRA WOLF REPLENISHMENT SPECIALIST ~MTH0 0 Heart Score: C/O Chest Pain: N/A Risk Factors: Risk Factors: DM, Current or recent (<one month) smoker, HTN, HLP, family history of CAD, obesity. Risk Scores: Score 0 - 3: 2.5% MACE over next 6 weeks - Discharge Home Score 4 - 6: 20.3% MACE over next 6 weeks - Admit for Clinical Observation Score 7 - 10: 72.7% MACE over next 6 weeks - Early Invasive Strategies Course & Med Decision Making: Course & Med Decision Making Pertinent Labs and Imaging studies reviewed. (See chart for details) [] Patient presents to the emergency department for chronic low back pain that radiates down both of her legs. EMS was called for patient at the [facility] because she was manic and ran away from the facility. Patient denies any suicidal or homicidal ideation, her only complaint is her chronic low back pain. Imaging was performed of patient's lower back that showed no acute findings. Urinalysis was performed that showed infection, patient treated with antibiotic. Patients chronic back pain was treated with anti-inflammatory medication. Patient advised to take anti-inflammatory medications at home. Patient advised to increase fluids and avoid bladder irritants. Patient advised to follow up with the guidance center for any mental health concerns. I discussed with patient all findings and diagnostic testing as well as the need to follow-up with PCP for further evaluation and treatment or return to the ER if any new or worsening symptoms. Strict return precautions were also discussed at length. Patient voiced understanding and agreement with the plan. Patient is hemodynamically stable at the time of disposition. Dragon Disclaimer: Dragon Disclaimer: This electronic medical record was generated, in whole or in part, using a voice recognition dictation system. Departure Departure: Impression: Primary Impression: Pyelonephritis Additional Impressions: Back pain Qualified Codes: M54.42 - Lumbago with sciatica, left side; M54.41 - Lumbago with sciatica, right side; G89.29 - Other chronic pain Manic behavior Disposition: HOME / SELF CARE / HOMELESS Condition: GOOD Referrals: DAVID TANNER MD (PCP) Patient Instructions: Back Pain, Adult, Pyelonephritis, Adult Additional Instructions: You are seen in the emergency department today for back pain. Your pain was treated with an anti-inflammatory medication. Urinalysis was performed and you have a urinary tract infection. This is treated with an antibiotic. Please start and finish the antibiotic completely. Please increase your fluids. Please take Tylenol/ibuprofen for any pain. Please avoid any bladder irritants like caffeine, alcohol or sugary beverages. Follow-up with your primary care provider tomorrow regarding your ER visit. Please follow up with the guidance center for your mental health care. Please return to the emergency department if you develop abdominal pain, high fevers refractory to treatment, intractable nausea or vomiting, loss of bowel or bladder, suicidal or homicidal ideation, numbness or tingling in your groin or down your legs, or any new or worsening concerns. Scripts Sulfamethoxazole/Trimethoprim (BACTRIM DS TABLET) 1 Each Tablet 1 TAB PO BID for infection for 14 Days, #28 TAB 0 Refills Prov: SAYRA WOLF APRN 11/15/21 SAYRA WOLF APRN Nov 15, 2021 13:57
[2021-11-15] MEDS ORDERED: KETOROLAC 60 MG/2 ML VIAL. IM ONE (14:00)
[2021-11-15 14:20] LABS: CLARITY,URINE HAZY; COLOR,URINE YELLOW
[2021-11-15 14:21] LABS: BILIRUBIN,URINE NEG (NEG); GLUCOSE,URINE NEG (NEG); NITRITE,URINE POS (NEG); UROBILINOGEN,URINE 0.2 mg/dL (0.2 mg/dL)
--- NOTE | 2021-11-15 14:25 | RAD ---
Exam Date: 11/15/2021 1:55 PM XR LUMBAR SPINE 2-3V Indication: Reason: back pain / Spl. Instructions: / History: . FINDINGS/ IMPRESSION: Anatomic alignment is maintained without spondylolisthesis. The vertebral body heights are maintaine d without evidence of compression fracture. Mild disc space narrowing seen at multiple levels with s mall osteophytes. Degenerative changes in the SI joints. Soft tissues are normal. Electronically signed by: Cortez Chapman MD (11/15/2021 2:22 PM) [id number]
[2021-11-15] MEDS ORDERED: CEPH500C PO (14:30)
[2021-11-15] MEDS ORDERED: CEPHALEXIN 250 MG CAPSULE PO ONE (14:30)
[2021-11-15] MEDS ORDERED: SULF1TAB24 PO (14:31)
[2021-11-15 14:51] LABS: BARBITURATES NEG (NEG); BENZODIAZEPINES NEG (NEG); CANNABINOIDS NEG (NEG); COCAINE NEG (NEG); METHADONE NEG (NEG); OPIATES NEG (NEG); PHENCYCLIDINE NEG (NEG)
[2021-11-15 15:01] LABS: AMPHETAMINE/METHAMPHETAMINE NEG (NEG)
== END 2021-11-15 14:45 | disposition home or self-care (01) ==
LOC: ER 13:46
DX: N12 Tubulo-interstitial nephritis, not specified as acute or chronic (principal); M54.41 Lumbago with sciatica, right side; M54.42 Lumbago with sciatica, left side; G89.29 Other chronic pain; F31.9 Bipolar disorder, unspecified; F25.9 Schizoaffective disorder, unspecified; F17.210 Nicotine dependence, cigarettes, uncomplicated; Z98.51 Tubal ligation status
CPT/HCPCS: 36415; 72100; 80307; 81003; 81025; 96372; 99284; J1885

== ENCOUNTER 2021-11-17 23:04 | Emergency (ER) | payer MEDICARE ==
[~2021-11-17] VITALS: Ht 165.1 cm; Wt 56.6 kg
[~2021-11-17 23:04] MED LIST changes: +CEPH500C PO
[2021-11-17] MEDS ORDERED: IBUPROFEN 600 MG TABLET. PO ONE ×2 (23:20→23:30)
[2021-11-17 23:22] VITALS: BP 132/99
--- NOTE | 2021-11-18 00:04 | PHYS DOC ---
Past History Past Medical History: Alcoholism, Anxiety, Bronchitis, Constipation, COPD, Depression, Schizophrenia Additional Past Medical Histor: Bipolar, schizoaffective disorder, PTSD, PANIC ATTACKS Past Medical History Colitis, polysubstance abuse Past Surgical History: Cholecystectomy, Tubal ligation Past Surgical History Rt. wrist ligament and vascular repair Smoking: Cigarettes Alcohol Use: None Drug Use: Amphetamine, Marijuana, Methamphetamine, Opiates, Other General Adult EDM: Chief Complaint: WOUND CHECK HPI: HPI: ".. I am fine.. .". " But they said .. I had to go to the hospital".. " I see Dr. Andrews...". " I was at [facility].. " I just got of prison for trespassing charge... I was in prison 5 weeks...".." my only complaint is my bautista and elbow... Got sores... But they are doing better". " I have use some meth.." " but I am fine.." Patient is a 46 year old female who presents with is a PD referral after bothering customers at [facility]. Patient only complaint some chronic sores on righ t bautista and left elbow. These initial result from an abrasion and have been slowly healing. Patient states her tetanus is up-to-date. Had just gotten out of [facility] prison recently after serving 5 weeks for trespassing violation and warrant for failure.. Patient does admit to use of methamphetamine. Patient does have a past medical history of emphysema, colitis, reactive airway, bronchitis, schizophrenia, bipolar, depression, prior suicide attempts, polysubstance abuse, methamphetamine overdose, heroin use, and marijuana use. Patient does smoke approximately 2 packs cigarettes a day if they are available to her. Patient has not gotten Covid vaccination. Patient has not gotten flu vaccination. Patient not gotten Pneumovax. Patient in the past to follow with Dr. Andrews. Review of Systems: Review of Systems: Constitutional: Denies fever or chills Eyes: Denies change in visual acuity HENT: Denies nasal congestion or sore throat Respiratory: Denies cough or shortness of breath Cardiovascular: Denies chest pain or edema GI: Denies abdominal pain, nausea, vomiting, bloody stools or diarrhea : Denies dysuria Musculoskeletal: Denies back pain or joint pain Integument: Patient requests wound check Neurologic: Denies headache, focal weakness or sensory changes Endocrine: Denies polyuria or polydipsia Lymphatic: Denies swollen glands Psychiatric: Denies depression or anxiety Family History: Family History: Noncontributory Current Medications: Current Meds: Current Medications Medications (Trade) Dose Ordered Sig/Cecilia Start Time Stop Time Status Last Admin Dose Admin Ibuprofen (Motrin) 600 mg STK-MED ONCE 11/17/21 23:20 11/17/21 23:20 DC Allergies: Allergies: Allergies Coded Allergies Type Severity Reaction Last Updated Verified No Known Drug Allergies 12/13/20 No Physical Exam: PE: Constitutional:no acute distress, appearance of someone that is high on methamphetamine.(Which she admits to using). HENT: Normocephalic, atraumatic, bilateral external ears normal, oropharynx moist, no oral exudates, nose normal. Eyes: PERRLA, EOMI, conjunctiva normal, no discharge. [] Neck: Normal range of motion, no tenderness, supple, no stridor. [] Cardiovascular: Tachycardia heart rate regular rhythm, no murmur [] Lungs & Thorax: Bilateral breath sounds equal apex with scattered wheezes throughout auscultation does not appear to be any respiratory distress Abdomen: Bowel sounds decreased, soft, no tenderness, no masses, no pulsatile masses. [] Skin: Warm, dry, no erythema, no rash. Large scar on right wrist. Does have dry scabs on right bautista and left elbow. No erythema. No striations. No adenopathy. Back: No tenderness, no CVA tenderness. [] Extremities: No tenderness, no cyanosis, no clubbing, ROM intact, no edema. No cording appreciated] Neurologic: Alert and oriented X 3, moves all extremities on request, does have distal sensory, no focal deficits noted. [] Psychologic: Affect agitated, pressured speech, denies suicidal or homicidal ideation , judgement impaired, mood anxious. Appears as depression high on methamphetamine. Current Patient Data: Vital Signs: Vital Signs Date Time Temp Pulse Resp B/P (MAP) Pulse Ox O2 Delivery O2 Flow Rate FiO2 11/17/21 23:22 98.2 106 18 132/99 (110) 100 Room Air EKG: EKG: [] Radiology/Procedures: Radiology/Procedures: [] Heart Score: C/O Chest Pain: N/A Risk Factors: Risk Factors: DM, Current or recent (<one month) smoker, HTN, HLP, family history of CAD, obesity. Risk Scores: Score 0 - 3: 2.5% MACE over next 6 weeks - Discharge Home Score 4 - 6: 20.3% MACE over next 6 weeks - Admit for Clinical Observation Score 7 - 10: 72.7% MACE over next 6 weeks - Early Invasive Strategies Course & Med Decision Making: Course & Med Decision Making Pertinent Labs and Imaging studies reviewed. (See chart for details) Patient's agitation and pressured speech gradually resolved while under observation in the emergency department. Patient given Bactracin antibiotic ointment apply to her scabs on right bautista and left elbow. Patient encouraged to follow-up primary care. Patient encouraged to avoid further drug use tonight. Patient return if any concerns. Patient discharged home and was amatory without problems. Impression: 1. PD referral for behavior issues -begging customers at [employer] to give her money 2. Tobacco use 3. Polysubstance abuse-admits to methamphetamine use tonight 4. Wound check Rt bautista and Lt elbow- appear to be healing well. [] Dragon Disclaimer: Dragon Disclaimer: This electronic medical record was generated, in whole or in part, using a voice recognition dictation system. Departure Departure: Referrals: DAVID ANDREWS MD (PCP) Rosalie Disclaimer This chart was dictated in whole or in part using Voice Recognition software in a busy, high-work load, and often noisy Emergency Department environment. It may contain unintended and wholly unrecognized errors or omissions. Dragon Disclaimer This chart was dictated in whole or in part using Voice Recognition software in a busy, high-work load, and often noisy Emergency Department environment. It may contain unintended and wholly unrecognized errors or omissions. PRISCILLA NAZARIO MD Nov 18, 2021 00:04
== END 2021-11-18 00:20 | disposition home or self-care (01) ==
LOC: ER 23:04
DX: Z48.00 Encounter for change or removal of nonsurgical wound dressing (principal); F19.10 Other psychoactive substance abuse, uncomplicated; F15.10 Other stimulant abuse, uncomplicated; F20.9 Schizophrenia, unspecified; F31.9 Bipolar disorder, unspecified; F12.10 Cannabis abuse, uncomplicated; F11.10 Opioid abuse, uncomplicated; F17.210 Nicotine dependence, cigarettes, uncomplicated
CPT/HCPCS: 99282; 99283

== ENCOUNTER 2021-11-23 00:27 | Emergency (ER) | payer MEDICARE ==
[~2021-11-23] VITALS: Ht 170.2 cm; Wt 60.0 kg
[2021-11-23 00:54] VITALS: BP 129/95
--- NOTE | 2021-11-23 01:15 | PHYS DOC ---
Past History Past Medical History: Alcoholism, Anxiety, Bronchitis, Constipation, COPD, Depression, Schizophrenia Additional Past Medical Histor: Bipolar, schizoaffective disorder, PTSD, PANIC ATTACKS Past Surgical History: Tubal ligation Smoking: Cigarettes Alcohol Use: None Additional Alcohol Information: [facility] Drug Use: Amphetamine, Marijuana, Methamphetamine, Opiates, Other Social History Narrative: denies Adult General Chief Complaint Chief Complaint: MULTIPLE COMPLAINTS HPI HPI Patient is a 46-year-old female with a past medical history significant for alcoholism and methamphetamine use who presents to the emergency department with a chief complaint of "I used methamphetamine earlier today and just want to come over here to make sure I was not going to ". Denies any headache, changes in vision, chest pain, shortness of breath, abdominal pain, nausea, vomiting, d iarrhea. Denies any numbness/weakness/tingling. Denies any other drug or alcohol use. States she is staying with her cousin currently who lives about 2 minutes from the emergency department and just walked over. States that since he has been in the emergency department she is feeling much better, would like a soda and be discharged home. Review of Systems Review of Systems Review of systems otherwise unremarkable except noted in HPI Allergies Allergies Allergies Coded Allergies Type Severity Reaction Last Updated Verified No Known Drug Allergies 12/13/20 No Physical Exam Physical Exam Constitutional: Well developed, well nourished, no acute distress, non-toxic appearance. [] HENT: Normocephalic, atraumatic, oropharynx moist, no oral exudates, nose normal. [] Eyes: conjunctiva normal, no discharge. [] Cardiovascular:Heart rate regular rhythm, no murmur [] Lungs & Thorax: Bilateral breath sounds clear to auscultation [ Skin: Warm, dry, no erythema, no rash. [] Neurologic: Alert and oriented X 3, normal motor function, normal sensory function, able to sit, stand and walk without issue, able to take p.o. no focal deficits noted. [] Psychologic: Affect normal, judgement abnormal as she does methamphetamines daily, mood anxious. [] Current Patient Data Vital Signs Vital Signs Date Time Temp Pulse Resp B/P (MAP) Pulse Ox O2 Delivery O2 Flow Rate FiO2 11/23/21 00:54 98.0 88 20 129/95 (106) 100 EKG EKG [] Radiology/Procedures Radiology/Procedures [] Heart Score C/O Chest Pain: No Risk Factors: Risk Factors: DM, Current or recent (<one month) smoker, HTN, HLP, family history of CAD, obesity. Risk Scores: Risk Factors: DM, Current or recent (<one month) smoker, HTN, HLP, family history of CAD, obesity. Course & Med Decision Making Course & Med Decision Making Patient is a 46-year-old female, who used methamphetamines and alcohol who used methamphetamines today who presented to the emergency department initially stating that she used methamphetamines earlier and walked here from her cousin's house to make sure she was going . Vital signs not concerning. Physical exam noted above. Discussed medical needs with patient and patient ended up saying she was feeling better, would like a Dr. Loyd and be discharged home so she could go back to her cousin's house. Discussed cessation of substances as they can cause significant health problems and increased risk for other comorbidities and cause significant illness, disability and in the worst case and area . Patient was grateful, verbalized understanding and agreed with plan of discharge. [] Dragon Disclaimer Dragon Disclaimer This electronic medical record was generated, in whole or in part, using a voice recognition dictation system. Departure Departure: Impression: Primary Impression: Methamphetamine abuse Disposition: HOME / SELF CARE / HOMELESS Condition: GOOD Referrals: PCPVIVIAN (PCP) RAYNA KOROMA Patient Instructions: Amphetamine Abuse Additional Instructions: Thank you for coming into the emergency department tonight and allowing us to take care of you. Please read the attached information very carefully to go back over some of the things we discussed about ceasing use of your substances especially amphetamines and methamphetamines as these could cause serious health problems and in the worst case scenario significant illness, disability and . Please follow-up with your primary care physician as soon as you can to set up a follow-up appointment and discuss these issues further. Please come back with new or concerning symptoms as we discussed. MARIO MCBRIDE MD Nov 23, 2021 01:15
== END 2021-11-23 01:23 | disposition home or self-care (01) ==
LOC: ER 00:27
DX: F15.10 Other stimulant abuse, uncomplicated (principal); F10.20 Alcohol dependence, uncomplicated; F41.9 Anxiety disorder, unspecified; J44.9 Chronic obstructive pulmonary disease, unspecified; F32.9 Major depressive disorder, single episode, unspecified; F20.9 Schizophrenia, unspecified; F17.210 Nicotine dependence, cigarettes, uncomplicated; F12.10 Cannabis abuse, uncomplicated; F11.10 Opioid abuse, uncomplicated; Y90.9 Presence of alcohol in blood, level not specified
CPT/HCPCS: 99281

== ENCOUNTER 2021-11-23 02:01 | Emergency (ER) | payer MEDICARE ==
[~2021-11-23] VITALS: Ht 170.2 cm; Wt 58.4 kg
--- NOTE | 2021-11-23 02:07 | PHYS DOC ---
Past History Past Medical History: Alcoholism, Anxiety, Bronchitis, Constipation, COPD, Depression, Schizophrenia Additional Past Medical Histor: Bipolar, schizoaffective disorder, PTSD, PANIC ATTACKS Past Surgical History: Tubal ligation Smoking: Cigarettes Alcohol Use: None Drug Use: Amphetamine, Marijuana, Methamphetamine, Opiates, Other Adult General HPI HPI Patient is a 46-year-old female with methamphetamine abuse who presents back to the emergency department just after being discharged from the emergency department. Patient states that she has a place to live with her cousin but did not go there. EMS states that PD called them as she was walking around outside and is cold. [facility]. Review of Systems Review of Systems Review of systems otherwise unremarkable except noted in HPI Allergies Allergies Allergies Coded Allergies Type Severity Reaction Last Updated Verified No Known Drug Allergies 12/13/20 No Physical Exam Physical Exam Constitutional: Well developed, well nourished, no acute distress, non-toxic appearance. [] HENT: Normocephalic, atraumatic, bilateral external ears normal, oropharynx moist, no oral exudates, nose normal. [] Eyes: PERRLA, EOMI, conjunctiva normal, no discharge. [] Neck: Normal range of motion, no tenderness, supple, no stridor. [] Cardiovascular:Heart rate regular rhythm, no murmur [] Lungs & Thorax: Bilateral breath sounds clear to auscultation [] Abdomen: Bowel sounds normal, soft, no tenderness, no masses, no pulsatile masses. [] Skin: Warm, dry, no erythema, no rash. [] Back: No tenderness, no CVA tenderness. [] Extremities: No tenderness, no cyanosis, no clubbing, ROM intact, no edema. [] Neurologic: Alert and oriented X 3, normal motor function, normal sensory function, no focal deficits noted. [] Psychologic: Affect normal, judgement normal, mood normal. [] EKG EKG [] Radiology/Procedures Radiology/Procedures [] Heart Score C/O Chest Pain: N/A Risk Factors: Risk Factors: DM, Current or recent (<one month) smoker, HTN, HLP, family history of CAD, obesity. Risk Scores: Risk Factors: DM, Current or recent (<one month) smoker, HTN, HLP, family history of CAD, obesity. Course & Med Decision Making Course & Med Decision Making Patient is a 46-year-old female who presents again to the emergency department after using methamphetamine after just being discharged via EMS. Vital signs not concerning. Physical exam noted above patient apparently homeless but [facility]. Patient offered a call to the mission in a transportation there but declined stating she does not like it there. States she will go to her cousin's house. Discussed with patient the need to cease all substance use and to go to her cousin's house and sleep as it is cold outside. [] Dragon Disclaimer Dragon Disclaimer This electronic medical record was generated, in whole or in part, using a voice recognition dictation system. Departure Departure: Impression: Primary Impression: Methamphetamine abuse Disposition: 01 HOME / SELF CARE / HOMELESS Condition: STABLE Referrals: PCP,VIVIAN (PCP) RAYNA KOROMA Patient Instructions: Amphetamine Abuse Additional Instructions: Please read your discharge instructions given. MARIO MCBRIDE MD Nov 23, 2021 02:07
[2021-11-23 02:12] VITALS: BP 132/90
== END 2021-11-23 02:20 | disposition home or self-care (01) ==
LOC: ER 02:01
DX: F15.10 Other stimulant abuse, uncomplicated (principal); F10.20 Alcohol dependence, uncomplicated; F41.9 Anxiety disorder, unspecified; J44.9 Chronic obstructive pulmonary disease, unspecified; F20.9 Schizophrenia, unspecified; F17.210 Nicotine dependence, cigarettes, uncomplicated; Y90.9 Presence of alcohol in blood, level not specified
CPT/HCPCS: 99283

== ENCOUNTER 2021-12-02 16:31 | Emergency (ER) | payer MEDICARE ==
[~2021-12-02] VITALS: Ht 170.2 cm; Wt 58.4 kg
[2021-12-02 18:07] VITALS: BP 131/84
[2021-12-02] MEDS ORDERED: IV NORMAL SALINE 1,000ML 1,000 ML IV ONE (19:00)
[2021-12-02 19:52] LABS: BASO % 1 % (0-3); EOS # 0.1 x10^3/uL (0.0-0.7); EOS % 1 % (0-3); HEMATOCRIT 41.4 % (36.0-47.0); HEMOGLOBIN 13.9 g/dL (12.0-15.5); LYMPH # 1.8 x10^3/uL (1.0-4.8); LYMPH % 22 % (24-48); MEAN CORPUSCULAR HEMOGLOBIN 31 pg (25-35); MEAN CORPUSCULAR HGB CONC 34 g/dL (31-37); MEAN CORPUSCULAR VOLUME 93 fL (79-100); MONO # 0.9 x10^3/uL (0.0-1.1); MONO % 12 % (0-9); NEUT # 5.3 x10^3uL (1.8-7.7); NEUT % 65 % (31-73); PLATELET COUNT 351 x10^3/uL (140-400); RED BLOOD COUNT 4.48 x10^6/uL (3.50-5.40); RED CELL DISTRIBUTION WIDTH 15.9 % (11.5-14.5); WHITE BLOOD COUNT 8.1 x10^3/uL (4.0-11.0)
[2021-12-02 20:03] LABS: CALCIUM 9.3 mg/dL (8.5-10.1); CREATININE 0.6 mg/dL (0.6-1.0); GFR 107.2; POTASSIUM 4.3 mmol/L (3.5-5.1)
--- NOTE | 2021-12-02 20:08 | PHYS DOC ---
Past History Past Medical History: Alcoholism, Anxiety, Bronchitis, Constipation, COPD, Depression, Schizophrenia Additional Past Medical Histor: Bipolar, schizoaffective disorder, PTSD, PANIC ATTACKS; pinched nerve ([facility] CE[facility]) Past Surgical History: Tubal ligation, Other Additional Past Surgical Histo: left leg fx repair with pins ([facility]) Smoking: Cigarettes Alcohol Use: None Drug Use: Amphetamine, Marijuana, Methamphetamine, Opiates, Other ([facility]) Adult General Chief Complaint Chief Complaint: DRUG ABUSE HPI HPI Patient is a 46-year-old female patient with history of anxiety, schizophrenia, depression, COPD, drug abuse, alcoholism, presenting to the ED today by EMS from the [place] side. Patient was apparently found behind a dumpster at a gas station on [address] in [place]. Patient herself has multiple complaints. She states she has been out for a while and is frozen to . She is complaining of chronic back pain, chronic bilateral knee pain, headache, she states she uses drugs and she could be a needle on the left forearm from drug use. She states she has been seen in this facility recently as well as [facility] for the same complaints. She states she is homeless. Denies any SI or HI ([facility]) Review of Systems Review of Systems Constitutional: Denies fever or chills [] Eyes: Denies change in visual acuity, redness, or eye pain [] HENT: Denies nasal congestion or sore throat [] Respiratory: Denies cough or shortness of breath [] Cardiovascular: No additional information not addressed in HPI [] GI: Denies abdominal pain, nausea, vomiting, bloody stools or diarrhea [] : Denies dysuria or hematuria [] Musculoskeletal: Reports chronic back pain, chronic bilateral knee pain, possible needle in the left forearm from drug use Integument: Denies rash or skin lesions [] Neurologic: Reports headache, focal weakness or sensory changes [] Psych: Reports homelessness, suspicious for drug use All other systems were reviewed and found to be within normal limits, except as documented in this note. ([facility]) Current Medications Current Medications Current Medications Medications (Trade) Dose Ordered Sig/Cecilia Start Time Stop Time Status Last Admin Dose Admin Sodium Chloride 1,000 ml @ 1,000 mls/hr 1X ONCE 12/02/21 19:00 12/02/21 19:59 DC ([facility]) Allergies Allergies Allergies Coded Allergies Type Severity Reaction Last Updated Verified No Known Drug Allergies 12/02/21 No ([facility]) Physical Exam Physical Exam Constitutional: Well developed, well nourished, no acute distress, non-toxic appearance. [] HENT: Normocephalic, atraumatic, bilateral external ears normal, oropharynx moist, no oral exudates, nose normal. [] Eyes: PERRLA, EOMI, conjunctiva normal, no discharge. [] Neck: Normal range of motion, no tenderness, supple, no stridor. [] Cardiovascular:Heart rate regular rhythm Lungs & Thorax: Bilateral breath sounds clear to auscultation [] Abdomen: Bowel sounds normal, soft, no tenderness, no masses, no pulsatile masses. [] Skin: Dry skin Back: No tenderness, no CVA tenderness. [] Extremities: No tenderness, no cyanosis, no clubbing, ROM intact, no edema. [] Neurologic: Alert and oriented X 3, normal motor function, normal sensory function, no focal deficits noted. [] Psychologic: Patient is restless, making abnormal kicking and hand thrashing movements but they stop when you ask her questions ([facility]) Current Patient Data Vital Signs Vital Signs Date Time Temp Pulse Resp B/P (MAP) Pulse Ox O2 Delivery O2 Flow Rate FiO2 12/02/21 18:07 97.6 91 19 131/84 (100) 100 Room Air Lab Results Laboratory Tests Test 12/02/21 19:20 White Blood Count 8.1 x10^3/uL (4.0-11.0) Red Blood Count 4.48 x10^6/uL (3.50-5.40) Hemoglobin 13.9 g/dL (12.0-15.5) Hematocrit 41.4 % (36.0-47.0) Mean Corpuscular Volume 93 fL (79-100) Mean Corpuscular Hemoglobin 31 pg (25-35) Mean Corpuscular Hemoglobin Concent 34 g/dL (31-37) Red Cell Distribution Width 15.9 % (11.5-14.5) H Platelet Count 351 x10^3/uL (140-400) Neutrophils (%) (Auto) 65 % (31-73) Lymphocytes (%) (Auto) 22 % (24-48) L Monocytes (%) (Auto) 12 % (0-9) H Eosinophils (%) (Auto) 1 % (0-3) Basophils (%) (Auto) 1 % (0-3) Neutrophils # (Auto) 5.3 x10^3uL (1.8-7.7) Lymphocytes # (Auto) 1.8 x10^3/uL (1.0-4.8) Monocytes # (Auto) 0.9 x10^3/uL (0.0-1.1) Eosinophils # (Auto) 0.1 x10^3/uL (0.0-0.7) Basophils # (Auto) 0.0 x10^3/uL (0.0-0.2) ([facility]) EKG EKG [] (ZOHRA CH APRN) Radiology/Procedures Radiology/Procedures [] (ZOHRA CH APRN) Heart Score C/O Chest Pain: N/A Risk Factors: Risk Factors: DM, Current or recent (<one month) smoker, HTN, HLP, family his tory of CAD, obesity. Risk Scores: Risk Factors: DM, Current or recent (<one month) smoker, HTN, HLP, family history of CAD, obesity. (ZOHRA CH APRN) Course & Med Decision Making Course & Med Decision Making Pertinent Labs and Imaging studies reviewed. (See chart for details) This is a 46-year-old female patient presenting to the ED today with multiple complaints, she was found behind a dumpster today. She is complaining of being out in the cold for days, chronic back pain, chronic knee pain, headache, possible needle in the left forearm from drug use. She has been seen at multiple facilities including this facility recently for similar complaints. She is homeless. Dr. Mcbride who evaluated this patient last requested we discharge her ([facility]) Course & Med Decision Making Did not see or evaluate patient. 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 Agree with LOLLYPOP MACHINE OPERATOR's work-up and disposition per note (MARIO MCBRIDE MD) Dragon Disclaimer Dragon Disclaimer This electronic medical record was generated, in whole or in part, using a voice recognition dictation system. (ZOHRA CH APRN) Departure Departure: Impression: Primary Impression: Back pain Additional Impressions: Knee pain, bilateral Drug abuse Disposition: HOME / SELF CARE / HOMELESS Condition: STABLE Referrals: PCP,NO (PCP) Problem Qualifiers Primary Impression: Back pain Back pain location: low back pain Chronicity: chronic Back pain laterality: bilateral Sciatica presence: without sciatica Qualified Codes: M54.50 - Low back pain, unspecified; G89.29 - Other chronic pain Additional Impressions: Knee pain, bilateral Chronicity: chronic Qualified Codes: M25.561 - Pain in right knee; M25.562 - Pain in left knee; G89.29 - Other chronic pain ZOHRA CH APRN Dec 02, 2021 20:08 MARIO MCBRIDE MD Dec 02, 2021 20:21
[2021-12-02 20:09] LABS: ALBUMIN 3.9 g/dL (3.4-5.0); MAGNESIUM 2.6 mg/dL (1.8-2.4); TOTAL BILIRUBIN 0.4 mg/dL (0.2-1.0); TOTAL PROTEIN 7.7 g/dL (6.4-8.2)
[2021-12-02 20:11] LABS: ACETAMIN < 2.0 mcg/mL (10-30); ETHANOL < 10 mg/dL (0-10); SALIC 2.7 mg/dL (2.8-20.0)
--- NOTE | 2021-12-03 00:26 | EKG ---
[address] [address] Test Date: 2021-12-02 Test Time: 19:10:52 Pat Name: SHIMON VERA Department: Room: Gender: F Position Classifier: [id number] : [id number] Requested By: ZOHRA CH Order Number: [id number] Reading MD: Measurements Intervals [place] Rate: 82 P: 45 CA: 112 QRS: 80 QRSD: 88 T: 73 QT: 392 QTc: 461 Interpretive Statements SINUS RHYTHM NORMAL ECG RI6.02 No previous ECG available for comparison
== END 2021-12-02 19:30 | disposition home or self-care (01) ==
LOC: ER 16:31
DX: G89.29 Other chronic pain (principal); M54.59 Other low back pain; M25.561 Pain in right knee; M25.562 Pain in left knee; R51.9 Headache, unspecified; F19.10 Other psychoactive substance abuse, uncomplicated; F10.20 Alcohol dependence, uncomplicated; F41.9 Anxiety disorder, unspecified; J44.9 Chronic obstructive pulmonary disease, unspecified; F31.9 Bipolar disorder, unspecified; F20.9 Schizophrenia, unspecified; F17.210 Nicotine dependence, cigarettes, uncomplicated; F15.10 Other stimulant abuse, uncomplicated; F11.10 Opioid abuse, uncomplicated; F12.10 Cannabis abuse, uncomplicated; Y90.0 Blood alcohol level of less than 20 mg/100 ml
CPT/HCPCS: 36415; 80053; 80329; 83690; 83735; 84484; 85025; 93005; 99284; G0480

== ENCOUNTER 2021-12-03 00:18 | Emergency (ER) | payer MEDICARE ==
[~2021-12-03] VITALS: Ht 170.2 cm; Wt 58.4 kg
[2021-12-03 01:10] VITALS: BP 134/88
== END 2021-12-03 01:40 ==
LOC: ER 00:18
DX: F30.9 Manic episode, unspecified (principal); Z53.21 Procedure and treatment not carried out due to patient leaving prior to being seen by health care provider